=== PATIENT | male | born 1940 | race Caucasian/White ===

== ENCOUNTER → 2018-08-31 12:40 | Outpatient (CLI) | payer MEDICARE, BC, SELFPAY ==
[2018-08-31 14:35] LABS: Alanine Aminotransferase 27 IU/L (21-72); Albumin 4.1 g/dL (3.5-5.0); Alkaline Phosphatase 74 U/L (38-126); Aspartate Aminotransferase 26 IU/L (17-59); BUN Creatinine Ratio 25.8 (6-22); Bilirubin Total 0.4 mg/dL (0.2-1.3); Blood Urea Nitrogen 31 mg/dL (9-20); Calcium 9.2 mg/dL (8.4-10.2); Chloride 92 mmol/L (98-107); Estimated Glomerular Filt Rate 58.7 mL/min (>60); Glucose 94 mg/dL (80-110); HEMOLYSIS < 15 (0-50); Potassium 4.2 mmol/L (3.4-5.1); Sodium 142 mmol/L (137-145)
[2018-08-31 14:36] LABS: Albumin Globulin Ratio 1.8 (1.0-2.8); Globulin 2.3 g/dL (1.7-4.1); Total Protein 6.4 g/dL (6.3-8.2)
[2018-08-31 14:43] LABS: Carbon Dioxide 39 mmol/L (22-32)
[2018-08-31 14:50] LABS: Free T4, Direct Thyroxine 1.08 ng/dL (0.78-2.19)
[2018-08-31 15:04] LABS: Thyroid Stimulating Hormone 1.66 uIU/mL (0.47-4.68)
== END ==
PROVIDERS: PCP Internal Medicine; Visit Provider Internal Medicine
DX: E03.9 Hypothyroidism, unspecified (principal); I10 Essential (primary) hypertension
CPT/HCPCS: 36415; 80053; 84439; 84443

== ENCOUNTER 2018-10-15 12:26 | Emergency (ER) | payer MEDICARE, BC, SELFPAY ==
[2018-10-15] VITALS (7 sets, daily range): BP systolic 126–162; BP diastolic 70–100; PULSE 84–102; RESP 16–19; TEMP 36.4; O2SAT 98–100
--- NOTE | 2018-10-15 12:35 | DI.RAD.S_ITS ---
PROCEDURE: XR CHEST 1V INDICATIONS: short of breath TECHNIQUE: One view of the chest was acquired. COMPARISON: [facility], , CHEST 1 VIEW, 09/20/2017, 12:58. FINDINGS: Surgical changes and devices: None. Lungs and pleura: No pleural effusions or pneumothorax. Mild pulmonary hyperexpansion appears to be present. There is interstitial prominence identified at the lung bases, which is similar to the previous exam. There is mild blunting of the costophrenic angles. Mediastinum: Mediastinal contours appear normal. Heart size is normal. There is aortic atherosclerosis. Bones and chest wall: No suspicious bony lesions. Overlying soft tissues appear unremarkable. IMPRESSION: Chronic interstitial markings at the lung bases are similar to the prior study. No acute cardiopulmonary process is evident. Dictated by: Gurdeep Forbes M.D. on 10/15/2018 at 12:35 Approved by: Gurdeep Forbes M.D. on 10/15/2018 at 12:36
[2018-10-15] MEDS: ALBUTEROL/IPRATROPIUM 3 ML AMPUL INH (12:44)
[2018-10-15 13:00] LABS: Add Manual Diff / Slide Review NO; Basophils Percent Auto 0.8 % (0-2); Eosinophils Percent Auto 3.7 % (2-4); Hematocrit 31.1 % (41-53); Hemoglobin 10.4 g/dL (13.5-17.5); Lymphocytes Percent Auto 10.6 % (25-40); Mean Corpuscular HGB Conc 33.4 % (30-36); Mean Corpuscular Hemoglobin 32.9 PG (26-34); Mean Corpuscular Volume 98.5 fL (80-100); Monocytes Percent Auto 11.4 % (3-14); Neutrophils Absolute Auto 4000 /uL (1500-7000); Neutrophils Percent Auto 73.5 % (50-75); Platelet Count 249 X10^3/uL (150-400); Red Blood Cell Count 3.15 X10^6/uL (4.5-5.9); Red Cell Distribution Width 13.1 % (11.6-14.8); White Blood Cell Count 5.4 X10^3/uL (4.5-11.0)
[2018-10-15 13:06] LABS: Prothrombin Time 10.9 SECONDS (10.1-12.7)
[2018-10-15 13:08] LABS: PTT Partial Thromboplastin Tim 31 SECONDS (26.4-36.2)
[2018-10-15 13:10] LABS: Lactate (Lactic Acid) 1.4 mmol/L (0.7-2.1)
[2018-10-15 13:11] LABS: Alanine Aminotransferase 26 IU/L (21-72); Albumin 4.3 g/dL (3.5-5.0); Albumin Globulin Ratio 1.6 (1.0-2.8); Alkaline Phosphatase 65 U/L (38-126); Aspartate Aminotransferase 27 IU/L (17-59); BUN Creatinine Ratio 16.4 (6-22); Bilirubin Total 0.7 mg/dL (0.2-1.3); Blood Urea Nitrogen 23 mg/dL (9-20); Calcium 9.4 mg/dL (8.4-10.2); Carbon Dioxide 39 mmol/L (22-32); Chloride 90 mmol/L (98-107); Creatine Kinase 40 U/L (55-170); Estimated Glomerular Filt Rate 49.1 mL/min (>60); Globulin 2.7 g/dL (1.7-4.1); Glucose 129 mg/dL (80-110); HEMOLYSIS < 15 (0-50); Magnesium 1.5 mg/dL (1.6-2.3); Potassium 4.5 mmol/L (3.4-5.1); Sodium 137 mmol/L (137-145)
[2018-10-15 13:22] LABS: Troponin I 0.032 ng/mL (0.01-0.034)
[2018-10-15 13:25] LABS: B Type Natriuretic Peptide 141 (<100)
[2018-10-15 13:30] LABS: Procalcitonin 0.06 ng/mL (<0.5)
--- NOTE | 2018-10-15 14:01 | ED_ITS ---
HPI - SOB/Dyspnea General Chief Complaint: Shortness of Breath/Dyspnea Stated Complaint: COPD Time Seen by Provider: 10/15/18 12:32 Source: patient and EMS Mode of arrival: EMS Limitations: no limitations History of Present Illness Patient a 78-year-old male who presents with shortness of breath. He has COPD and is on oxygen at all times. Over the past couple of months he has noticed increasing shortness of breath with exertion despite oxygen. He has noticed that with exertion his O2 level goes to 70% today it got significantly worse. EMS has arrived applied 6 L of O2 with oxygen level quickly improved. We were able to turn it back down to his normal 3 L when he arrived in the ED. He denies any fever or productive cough. He has no chest pain or heart palpitations. MD Complaint: shortness of breath Context: occurred during exertion Severity: moderate Relieving factors: oxygen Known history of: COPD Treatment prior to arrival: oxygen Related Data Home oxygen amount: 3 liters Home Medications Medication Instructions Recorded Confirmed aspirin 81 mg PO BEDTIME #0 09/30/11 10/15/18 calcium carbonate [Calcium 500] 500 mg PO BEDTIME #0 09/30/11 10/15/18 cholecalciferol (vitamin D3) 1,000 unit PO DAILY #0 09/30/11 10/15/18 [Vitamin D3] polyethylene glycol 3350 [Miralax] 17 gm PO QDAY PRN #0 10/20/17 10/15/18 albuterol sulfate HFA 90 2 puff INHALATION Q4-6H PRN 02/03/18 10/15/18 mcg/actuation aerosol inhaler Disabled Parking Permit 1 ea MISCELLANEOUS DIRECTED 10/15/18 10/15/18 bupropion HCl [Wellbutrin XL] 150 mg PO BEDTIME 10/15/18 10/15/18 chlorthalidone 25 mg PO DAILY 10/15/18 10/15/18 lisinopril 20 mg PO BEDTIME 10/15/18 10/15/18 lorazepam [Ativan] 1 mg PO DAILY PRN 10/15/18 10/15/18 multivitamin 1 tab PO DAILY 10/15/18 10/15/18 tiotropium bromide [Spiriva with 1 inh PO DAILY 10/15/18 10/15/18 HandiHaler] tolterodine 2 mg PO DAILY 10/15/18 10/15/18 Previous Rx's Medication Instructions Recorded ketoconazole 2 % topical cream 1 applictn TOP BID #30 gram 02/03/18 clonazepam 1 mg tablet 1 mg PO BID #180 tab 07/27/18 mupirocin 2 % nasal ointment 1 applictn NASAL BID #1 gram 08/16/18 fluticasone-salmeterol [Advair 1 puff INH BID #1 ea 09/06/18 Diskus] levothyroxine [Synthroid] 0.075 mg PO QAM #30 tab 09/06/18 Allergies Allergy/AdvReac Type Severity Reaction Status Date / Time No Known Allergies Allergy Uncoded 10/15/18 12:41 Review of Systems Review of Systems ROS Unobtainable: All systems reviewed & are unremarkable except as noted in HPI and below Constitutional Denies chills, Denies fever(s), Denies lethargy and Denies weakness Cardiovascular Denies chest pain, Denies irregular heart rhythm, Denies lightheadedness, Denies palpitations and Denies orthopnea Respiratory Reports as per HPI Gastrointestinal Gastrointestinal: Denies abdominal pain, Denies change in bowel habits, Denies diarrhea, Denies nausea and Denies vomiting Genitourinary Denies hematuria, Denies flank pain, Denies urinary incontinence and Denies urinary urgency Musculoskeletal Denies back pain, Denies muscle weakness, Denies numbness and Denies tingling Integumentary/Breasts Denies pruritus, Denies erythema, Denies rash and Denies wounds Neurologic Denies numbness, Denies tingling and Denies weakness Endocrine Denies palpitations [facility] Surgical History History of bowel resection (Inactive) History of cataract removal with insertion of prosthetic lens (Inactive ~2008) History of cataract removal with insertion of prosthetic lens (Inactive ~2011) History of hip replacement (Inactive) History of prostatectomy (Inactive ~2003) Family History Mother Diabetes mellitus Father No problems noted. Grandfather No problems noted. Grandmother No problems noted. Grandfather No problems noted. Grandmother No problems noted. Sister No problems noted. Social History Smoking Status: Former smoker Exam Initial Vital Signs Initial Vital Signs: Vital Signs Temperature 97.5 F L 10/15/18 12:34 Pulse Rate 102 H 10/15/18 12:34 Respiratory Rate 18 10/15/18 12:34 Blood Pressure 159/89 H 10/15/18 12:34 Pulse Oximetry 100 10/15/18 12:34 GENERAL: Chronically ill elderly male on oxygen no respiratory distress HEENT: Head atraumatic,EOMI, pupils reactive, face symmetric CARDIOVASCULAR: Regular rate and rhythm without murmurs, rubs or gallops. RESPIRATORY: Speak full sentences no respiratory distress no wheezes rales or rhonchi ABDOMEN: Soft, nontender. Normoactive bowel sounds all 4 quadrants. No guarding or rebound. EXTREMITIES: Normal range of motion, no clubbing or edema. Neurovascularly intact NEUROLOGICAL: Alert and oriented x4.Normal gait and speech. Cranial nerves II through XII grossly intact. SKIN: Warm, dry, no laceration, no petechiae, no rashes or lesions. Course Orders Ordered: Discontinued Medications Albuterol/Ipratropium (Duoneb) 3 ml INH NOW ONE Stop: 10/15/18 12:35 Last Admin: 10/15/18 12:44 Dose: 3 ml Vital Signs - 8 hr 10/15/18 12:34 10/15/18 12:48 10/15/18 13:26 Temperature 97.5 F L Pulse Rate 102 H 95 H 91 H Respiratory Rate 18 18 18 Blood Pressure 159/89 H Blood Pressure [Right Arm] 139/70 Pulse Oximetry 100 100 98 10/15/18 14:32 10/15/18 15:49 10/15/18 16:00 Temperature Pulse Rate 87 84 92 H Respiratory Rate 16 17 18 Blood Pressure Blood Pressure [Right Arm] 145/76 H 126/70 152/100 H Pulse Oximetry 98 99 99 10/15/18 16:30 Temperature Pulse Rate 92 H Respiratory Rate 19 Blood Pressure Blood Pressure [Right Arm] 162/89 H Pulse Oximetry 100 MDM - SOB/Dyspnea Lab Data Attestation: I reviewed the patient's lab results. Result diagrams: 10/15/18 12:55 10/15/18 12:55 Lab Results 10/15/18 10/15/18 10/15/18 Range/Units 12:55 12:55 12:55 WBC 5.4 (4.5-11.0) X10^3/uL RBC 3.15 L (4.5-5.9) X10^6/uL Hgb 10.4 L (13.5-17.5) g/dL Hct 31.1 L (41-53) % MCV 98.5 (80-100) fL MCH 32.9 (26-34) PG MCHC 33.4 (30-36) % RDW 13.1 (11.6-14.8) % Plt Count 249 (150-400) X10^3/uL Neut % (Auto) 73.5 (50-75) % Lymph % (Auto) 10.6 L (25-40) % Jerome % (Auto) 11.4 (3-14) % Eos % (Auto) 3.7 (2-4) % Baso % (Auto) 0.8 (0-2) % Neut # (Auto) 4000 (2290-8881) /uL PT 10.9 (10.1-12.7) SECONDS INR 1.0 (0.9-1.3) APTT 31 (26.4-36.2) SECONDS Sodium 137 (137-145) mmol/L Potassium 4.5 (3.4-5.1) mmol/L Chloride 90 L (98-107) mmol/L Carbon Dioxide 39 H (22-32) mmol/L BUN 23 H (9-20) mg/dL Creatinine 1.40 H (0.66-1.25) mg/dL Estimated GFR 49.1 L (>60) mL/min BUN/Creatinine Ratio 16.4 (6-22) Glucose 129 H (80-110) mg/dL Lactate (0.7-2.1) mmol/L Calcium 9.4 (8.4-10.2) mg/dL Magnesium 1.5 L (1.6-2.3) mg/dL Total Bilirubin 0.7 (0.2-1.3) mg/dL AST 27 (17-59) IU/L ALT 26 (21-72) IU/L Alkaline Phosphatase 65 (38-126) U/L Total Creatine Kinase 40 L (55-170) U/L CK-MB (CK-2) TNP CK-MB (CK-2) Rel Index TNP Troponin I 0.032 (0.01-0.034) ng/mL B-Natriuretic Peptide 141 H (<100) Total Protein 7.0 (6.3-8.2) g/dL Albumin 4.3 (3.5-5.0) g/dL Globulin 2.7 (1.7-4.1) g/dL Albumin/Globulin Ratio 1.6 (1.0-2.8) Procalcitonin (<0.5) ng/mL 10/15/18 10/15/18 Range/Units 12:55 12:55 WBC (4.5-11.0) X10^3/uL RBC (4.5-5.9) X10^6/uL Hgb (13.5-17.5) g/dL Hct (41-53) % MCV (80-100) fL MCH (26-34) PG MCHC (30-36) % RDW (11.6-14.8) % Plt Count (150-400) X10^3/uL Neut % (Auto) (50-75) % Lymph % (Auto) (25-40) % Jerome % (Auto) (3-14) % Eos % (Auto) (2-4) % Baso % (Auto) (0-2) % Neut # (Auto) (3185-6010) /uL PT (10.1-12.7) SECONDS INR (0.9-1.3) APTT (26.4-36.2) SECONDS Sodium (137-145) mmol/L Potassium (3.4-5.1) mmol/L Chloride (98-107) mmol/L Carbon Dioxide (22-32) mmol/L BUN (9-20) mg/dL Creatinine (0.66-1.25) mg/dL Estimated GFR (>60) mL/min BUN/Creatinine Ratio (6-22) Glucose (80-110) mg/dL Lactate 1.4 (0.7-2.1) mmol/L Calcium (8.4-10.2) mg/dL Magnesium (1.6-2.3) mg/dL Total Bilirubin (0.2-1.3) mg/dL AST (17-59) IU/L ALT (21-72) IU/L Alkaline Phosphatase (38-126) U/L Total Creatine Kinase (55-170) U/L CK-MB (CK-2) CK-MB (CK-2) Rel Index Troponin I (0.01-0.034) ng/mL B-Natriuretic Peptide (<100) Total Protein (6.3-8.2) g/dL Albumin (3.5-5.0) g/dL Globulin (1.7-4.1) g/dL Albumin/Globulin Ratio (1.0-2.8) Procalcitonin 0.06 (<0.5) ng/mL Imaging Data Chest x-ray: Radiologist's impression: PROCEDURE: XR CHEST 1V INDICATIONS: short of breath TECHNIQUE: One view of the chest was acquired. COMPARISON: [facility], CHEST 1 VIEW, 09/20/2017, 12:58. FINDINGS: Surgical changes and devices: None. Lungs and pleura: No pleural effusions or pneumothorax. Mild pulmonary hyperexpansion appears to be present. There is interstitial prominence identified at the lung bases, which is similar to the previous exam. There is mild blunting of the costophrenic angles. Mediastinum: Mediastinal contours appear normal. Heart size is normal. There is aortic atherosclerosis. Bones and chest wall: No suspicious bony lesions. Overlying soft tissues appear unremarkable. IMPRESSION: Chronic interstitial markings at the lung bases are similar to the prior study. No acute cardiopulmonary process is evident. Dictated by: Gurdeep Forbes M.D. on 10/15/2018 at 12:35 Approved by: Gurdeep Forbes M.D. on 10/15/2018 at 12:36 CT-PE: Radiologist's impression: PROCEDURE: CT ANGIO CHEST PE PROTOCOL INDICATIONS: Short of breath,hypoxia TECHNIQUE: After the administration of intravenous contrast, 2 mm thick sections acquired from the pulmonary apices to the posterior costophrenic angles. 3-dimensional maximum intensity projection (MIP) coronal and sagittal reformats were then acquired through the thorax. For radiation dose reduction, the following was used: automated exposure control, adjustment of mA and/or kV according to patient size. COMPARISON: None. FINDINGS: Image quality: Excellent. Pulmonary arteries: Pulmonary arteries are normal in size, and demonstrate no intraluminal filling defects to suggest central pulmonary embolism. Lungs and pleura: Moderate centrilobular emphysema is seen. Scarring/ atelectasis in the anterior aspect of bilateral lower lung chavez are seen. There is a 3 mm linear nodular density in posterior aspect of left lower lobe series 7 image 37. 4 mm nodular density in the anterior aspect of the right middle lobe is also seen series 7 image 41. Bibasilar scarring/atelectasis is noted. No pleural effusions or pneumothorax. Central and peripheral airways are patent. Mediastinum: Heart size is normal, without pericardial effusion. No mediastinal or hilar adenopathy. Thoracic aorta is normal in caliber and enhancement. Esophagus is normal in caliber, there is a small hiatal hernia. Bones and chest wall: No suspicious bony lesions. Ribs and thoracic spine appear intact throughout. Thyroid gland is within normal limits. No axillary or supraclavicular adenopathy. Abdomen: Visualized upper abdominal solid organs appear normal in the early arterial phase of enhancement. IMPRESSION: 1. No evidence of pulmonary emboli. No thoracic aortic aneurysm or gross dissection. Cardiomegaly, no pericardial effusion. 2. No mediastinal or hilar adenopathy. 3. Scarring/atelectasis in bilateral lower lung chavez. 3 and 4 mm nodular densities are seen in left lower lobe and right middle lobe as described above. Centrilobular emphysema. A followup CT in 12 months is recommended for evaluation of stability. Dictated by: Edmundo Boyd M.D. on 10/15/2018 at 15:50 ECG Data Attestation: I personally reviewed and interpreted this ECG as follows: Prior ECG tracings: available for review Interpretation: Sinus rhythm rate [address] changes right bundle-branch block similar to previous EKG here interval 180 QTC 462 MDM Narrative Medical decision making narrative: Patient gets short of breath with minimal exertion. CT for PE is negative. This is likely progression of his disease. He has oxygen at home. At rest he has an O2 level of 98-100% on 3 L on with no work of breathing. Recommend that with exertion he turns up his oxygen. Patient feels ready and able to go home. Discharge Plan Departure Patient Disposition: Home Clinical Impression: Chronic obstructive pulmonary disease Discharge Date/Time: 10/15/18 17:26 Interventions: ED Discharge Assessment Last Done: 10/15/18 17:25 Instructions: Chronic Obstructive Pulmonary Disease Activity Restrictions/Additional Instructions: *You have been diagnosed with COPD exacerbation *What to do: Continue oxygen may need to increase oxygen while *Continue to take medications as directed *Follow up with your primary care provider in 2-3 days *Return to ER if you should have chest pain, heart palpitations, fever, cough or any new, worsening or concerning symptoms Prescriptions: No Action calcium carbonate [Calcium 500] 500 mg calcium (1,250 mg) Tablet 500 mg PO BEDTIME Qty: 0 RF: 0 aspirin 81 MG tablet,delayed release (DR/EC) 81 mg PO BEDTIME Qty: 0 RF: 0 cholecalciferol (vitamin D3) [Vitamin D3] 1,000 unit Capsule 1,000 unit PO DAILY Qty: 0 RF: 0 polyethylene glycol 3350 [Miralax] 17 GM powder in packet 17 gm PO QDAY PRN (Reason: Constipation) Qty: 0 RF: 0 clonazepam 1 mg tablet 1 mg PO BID Qty: 180 RF: 3 mupirocin calcium 2 % ointment 1 applictn NASAL BID Qty: 1 RF: 3 fluticasone-salmeterol [Advair Diskus] 500-50 mcg/dose blister with device 1 puff INH BID Qty: 1 RF: 3 levothyroxine [Synthroid] 75 mcg tablet 0.075 mg PO QAM Qty: 30 RF: 3 albuterol sulfate 90 mcg/actuation HFA aerosol inhaler 2 puff INHALATION Q4-6H PRN (Reason: shortness of breath or wheezing) RF: 0 ketoconazole 2 % cream 1 applictn TOP BID Qty: 30 RF: 0 tolterodine 2 mg capsule,extended release 24hr 2 mg PO DAILY RF: 0 lisinopril 20 mg tablet 20 mg PO BEDTIME RF: 0 lorazepam [Ativan] 1 mg tablet 1 mg PO DAILY PRN (Reason: Anxiety) RF: 0 tiotropium bromide [Spiriva with HandiHaler] 18 MCG capsule, w/inhalation device 1 inh PO DAILY RF: 0 multivitamin Tablet 1 tab PO DAILY RF: 0 chlorthalidone 25 mg tablet 25 mg PO DAILY RF: 0 bupropion HCl [Wellbutrin XL] 150 mg tablet extended release 24 hr 150 mg PO BEDTIME RF: 0 Disabled Parking Permit 1 ea miscellaneous DIRECTED RF: 0 Referrals: Leonel Samayoa MD [Primary Care Provider] -
--- NOTE | 2018-10-15 14:45 | DI.CT.S_ITS ---
PROCEDURE: CT ANGIO CHEST PE PROTOCOL INDICATIONS: Short of breath,hypoxia TECHNIQUE: After the administration of intravenous contrast, 2 mm thick sections acquired from the pulmonary apices to the posterior costophrenic angles. 3-dimensional maximum intensity projection (MIP) coronal and sagittal reformats were then acquired through the thorax. For radiation dose reduction, the following was used: automated exposure control, adjustment of mA and/or kV according to patient size. COMPARISON: None. FINDINGS: Image quality: Excellent. Pulmonary arteries: Pulmonary arteries are normal in size, and demonstrate no intraluminal filling defects to suggest central pulmonary embolism. Lungs and pleura: Moderate centrilobular emphysema is seen. Scarring/atelectasis in the anterior aspect of bilateral lower lung chavez are seen. There is a 3 mm linear nodular density in posterior aspect of left lower lobe series 7 image 37. 4 mm nodular density in the anterior aspect of the right middle lobe is also seen series 7 image 41. Bibasilar scarring/atelectasis is noted. No pleural effusions or pneumothorax. Central and peripheral airways are patent. Mediastinum: Heart size is normal, without pericardial effusion. No mediastinal or hilar adenopathy. Thoracic aorta is normal in caliber and enhancement. Esophagus is normal in caliber, there is a small hiatal hernia. Bones and chest wall: No suspicious bony lesions. Ribs and thoracic spine appear intact throughout. Thyroid gland is within normal limits. No axillary or supraclavicular adenopathy. Abdomen: Visualized upper abdominal solid organs appear normal in the early arterial phase of enhancement. IMPRESSION: 1. No evidence of pulmonary emboli. No thoracic aortic aneurysm or gross dissection. Cardiomegaly, no pericardial effusion. 2. No mediastinal or hilar adenopathy. 3. Scarring/atelectasis in bilateral lower lung chavez. 3 and 4 mm nodular densities are seen in left lower lobe and right middle lobe as described above. Centrilobular emphysema. A followup CT in 12 months is recommended for evaluation of stability. Dictated by: Edmundo Boyd M.D. on 10/15/2018 at 15:50 Approved by: Edmundo Boyd M.D. on 10/15/2018 at 15:55
== END 2018-10-15 17:26 | disposition home or self-care (01) ==
PROVIDERS: Emergency Provider Emergency Medicine; Family Provider Internal Medicine; PCP Internal Medicine
DX: J44.9 Chronic obstructive pulmonary disease, unspecified (principal)
CPT/HCPCS: 36591; 71045; 71275; 80053; 82550; 83605; 83735; 83880; 84145; 84484; 85025; 85610; 85730; 93005; 93010; 94640; 99283; 99285

== ENCOUNTER → 2018-12-31 10:37 | Outpatient (CLI) | payer MEDICARE, BC, SELFPAY ==
[2018-12-31 12:16] LABS: BUN Creatinine Ratio 28.6 (6-22); Blood Urea Nitrogen 63 mg/dL (9-20); Carbon Dioxide 38 mmol/L (22-32); Chloride 98 mmol/L (98-107); Estimated Glomerular Filt Rate 29.2 mL/min (>60); Glucose 118 mg/dL (80-110); HEMOLYSIS < 15 (0-50); Potassium 4.8 mmol/L (3.4-5.1); Sodium 141 mmol/L (137-145)
== END ==
PROVIDERS: PCP Internal Medicine; Visit Provider Internal Medicine
DX: I42.9 Cardiomyopathy, unspecified (principal); I48.91 Unspecified atrial fibrillation; N18.2 Chronic kidney disease, stage 2 (mild)
CPT/HCPCS: 36415; 80048

== ENCOUNTER 2019-01-04 10:43 | Inpatient (IN) | payer MEDICARE, BC, SELFPAY ==
[2019-01-04] VITALS (28 sets, daily range): BP systolic 109–143; BP diastolic 49–95; PULSE 66–89; RESP 13–20; TEMP 36.7–37.7; O2SAT 95–100; BMI 18.9
--- NOTE | 2019-01-04 10:53 | DI.RAD.S_ITS ---
PROCEDURE: XR ACUTE ABDOMEN SERIES INDICATIONS: diarrhea, altered mental status TECHNIQUE: One view chest and two views of the abdomen were acquired. COMPARISON: None. FINDINGS: Surgical changes and devices: Multiple surgical clips are seen within the left upper quadrant and within the pelvis. Postoperative changes related to total left hip arthroplasty are also noted. Chest: The lungs are well aerated no focal consolidation, effusion, or pneumothorax. There may be minimal atelectasis versus scarring within the lateral margins of the bilateral lung bases. The heart is normal in size. Mediastinal silhouette is also within normal limits. There is aortic atherosclerosis. Degenerative changes of the spine are not well characterized. Abdomen: The bowel gas pattern is nonspecific. However, air and stool are seen throughout the colon. Moderate amount of residual stool is identified within the lower colon (pelvic region). No air-filled distended small bowel loops are identified demonstrating air-fluid levels. No definitive evidence of organomegaly is identified. There is no pneumoperitoneum. Degenerative changes of the lumbar spine, sacroiliac joints, and right hip are noted. IMPRESSION: 1. No bowel obstruction. 2. Moderate residual stool within the distal colon may represent constipation. 3. Minimal scarring/atelectasis within the lung bases. No acute cardiopulmonary process is evident. Dictated by: Gurdeep Forbes M.D. on 01/04/2019 at 10:34 Approved by: Gurdeep Forbes M.D. on 01/04/2019 at 10:38
--- NOTE | 2019-01-04 10:57 | ED.FEVER ---
HPI - Fever <Leonel Samayoa MD - Last Filed: 01/04/19 17:26> General Chief Complaint: Fever Stated Complaint: Fever / Confused Time Seen by Provider: 01/04/19 10:53 Related Data Home Medications Medication Instructions Recorded Confirmed polyethylene glycol 3350 [Miralax] 17 gm PO QDAY PRN #0 10/20/17 01/04/19 albuterol sulfate HFA 90 2 puff INHALATION Q4-6H PRN 02/03/18 01/04/19 mcg/actuation aerosol inhaler Disabled Parking Permit 1 ea MISCELLANEOUS DIRECTED 10/15/18 01/04/19 bupropion HCl [Wellbutrin XL] 150 mg PO BEDTIME 10/15/18 01/04/19 lorazepam [Ativan] 1 mg PO DAILY PRN 10/15/18 01/04/19 multivitamin 1 tab PO DAILY 10/15/18 01/04/19 apixaban 2.5 mg tablet 2.5 mg PO BID 12/31/18 01/04/19 carvedilol 6.25 mg tablet 6.25 mg PO BID 12/31/18 01/04/19 enalapril maleate 2.5 mg tablet 7.5 mg PO BID tab 12/31/18 01/04/19 Previous Rx's Medication Instructions Recorded fluticasone propion-salmeterol 1 puff INH BID #1 ea 09/06/18 [Advair Diskus] levothyroxine [Synthroid] 0.075 mg PO QAM #30 tab 09/06/18 tolterodine ER 2 mg 2 mg PO DAILY #90 cap 10/21/18 capsule,extended release 24 hr tiotropium bromide 18 mcg capsule 1 cap INHALATION DAILY #90 caplet 10/25/18 with inhalation device triamcinolone acetonide 0.1 % 1 applictn TOP DAILY #80 gram 10/25/18 topical cream chlorthalidone 25 mg tablet 25 mg PO DAILY #90 tab 11/02/18 calcium carbonate 500 mg calcium 500 mg PO QID #30 tab 12/31/18 (1,250 mg) tablet clonazepam 1 mg tablet 0.5 mg PO BID #180 tab 12/31/18 Allergies Allergy/AdvReac Type Severity Reaction Status Date / Time No Known Drug Allergies Allergy Verified 01/04/19 10:50 <DO David Hill Last Filed: 01/04/19 20:10> General Source: patient, EMS and other (caregiver ([facility]_) Mode of arrival: EMS Limitations: altered mental status (memory issues, chronic) History of Present Illness HPI Narrative: This is a 78-year-old male was transported via EMS. EMS stated that he had a fever with them but here at the hospital he does not have 1. Patient was at home with his caregiver. He was found on the floor with diarrhea. He had taken off his oxygen to try to get to the bathroom. Caregiver states that they cleaned him up, put him back into bed. He had 1 or 2 other episodes of diarrhea. They stated that he has memory issues he is worse than he typically is but his memory sort of waxes and wanes. At this time he is sorted still quite confused. Patient has not had any other complaints recently. He went out to dinner with his caregiver yesterday had a large crab dinner was not having any other issues in the evening. He arrives today with no other complaints currently. Patient himself can tell me his name he knows he is at a hospital but does not answer which hospital or what town. He seems to be searching for the answer. He is not able to give me his past medical history. When I ask if he has any headaches, chest pain, shortness of breath, she feels nauseated or has had any recent vomiting he denies. He is denying any issues with urination. He does not have any sensation that he is going to have diarrhea at this time. <Karolina Johnson DO - Last Filed: 01/04/19 20:10> Review of Systems ROS Unobtainable: All systems reviewed & are unremarkable except as noted in HPI and below (Patient does have memory issue) Constitutional Denies chills, Denies fever(s) (Fever only with EMS, not per caregiver), Denies headache(s), Denies lethargy and Denies weakness ENT Ears, Nose, Mouth, and Throat: Denies headache(s) and Denies nasal congestion Cardiovascular Denies chest pain, Denies chest pain at rest, Denies diaphoresis, Denies syncope, Denies edema, Denies irregular heart rhythm, Denies leg edema, Denies lightheadedness, Denies palpitations, Denies dyspnea, Denies dyspnea on exertion and Denies orthopnea Respiratory Denies change in phlegm color, Denies chest congestion, Denies cough, Denies dyspnea, Denies dyspnea on exertion, Denies stridor and Denies wheezing Gastrointestinal Gastrointestinal: Denies abdominal pain, Denies change in bowel habits, Denies diarrhea, Denies nausea and Denies vomiting Genitourinary Denies hematuria, Denies flank pain, Denies urinary hesitancy and Denies urinary urgency Musculoskeletal Denies back pain, Denies numbness and Denies tingling Integumentary/Breasts Denies rash and Denies sores Neurologic Reports as per HPI, Reports confusion, Denies syncope, Denies headache(s), Reports memory loss (chronic), Denies numbness, Denies tingling and Denies weakness Psychiatric Reports confusion and Reports memory loss (chronic) Endocrine Denies palpitations Allergic/Immunologic Denies wheezing PFSH <Leonel Samayoa MD - Last Filed: 01/04/19 17:26> Medical History Chronic renal failure, stage 2 (mild) (Chronic) Cardiomyopathy (Chronic) Chronic obstructive pulmonary disease (Chronic 04/17/11) Atrial fibrillation (Chronic 04/17/11) Hypertension (Chronic 04/17/11) Acquired hypothyroidism (Chronic 12/20/12) Malignant neoplasm of prostate (Chronic 07/28/17) Anxiety (Chronic 11/24/13) Osteoarthritis (Chronic 04/17/11) Insomnia (Chronic 09/26/14) History of adenomatous polyp of colon (Chronic) Chicken pox (Resolved ~194) Closed left hip fracture (Resolved) Fracture (Resolved) Elevated PSA (Inactive ~2003) Surgical History History of bowel resection (Inactive) History of cataract removal with insertion of prosthetic lens (Inactive ~2008) History of cataract removal with insertion of prosthetic lens (Inactive ~2011) History of hip replacement (Inactive) History of prostatectomy (Inactive ~2003) Family History Mother Diabetes mellitus Father No problems noted. Grandfather No problems noted. Grandmother No problems noted. Grandfather No problems noted. Grandmother No problems noted. Sister No problems noted. Social History household members: caregiver Smoking Status: Former smoker Family History Mother Diabetes mellitus Father No problems noted. Grandfather No problems noted. Grandmother No problems noted. Grandfather No problems noted. Grandmother No problems noted. Sister No problems noted. Social History household members: caregiver Smoking Status: Former smoker Exam <Loenel Samayoa MD - Last Filed: 01/04/19 17:26> Initial Vital Signs Initial Vital Signs: Vital Signs Temperature 98.1 F 01/04/19 10:50 Pulse Rate 79 01/04/19 10:50 Respiratory Rate 16 01/04/19 10:50 Blood Pressure 132/51 L 01/04/19 10:50 Pulse Oximetry 95 01/04/19 10:50 <Karolina Johnson DO - Last Filed: 01/04/19 20:10> Narrative Exam Narrative: GEN: well nourished, well appearing elderly male, alert and oriented x time is 1, patient appears to be no acute distress. patient is calm and cooperative. HEENT: Atraumatic, pupils are equal round reactive to light, extraocular movements are intact, nares are clear, TMs are clear with no fluid, there is no conjunctival pallor. Throat is clear without any exudates, erythema, tonsillar enlargement or uvular deviation, no facial droop, no dysarthria HEART: Regular rate and rhythm without murmur, clicks, rubs. LUNGS:Lungs clear to auscultation, no wheezes, rales, crackles, chest moves symmetrically, no tachypnea or accessory muscle use. ABD:bowel sounds normal, soft, non-tender, no guarding, rebound, rigidity, no masses noted, no hepatosplenomegaly, MARVA shows no mass, patient has some brown stool with negative stool occult. There is no bright red blood or black tarry stool. :No CVA tenderness MSCL: Non-tender, no muscle atrophy, muscles strength 5/5 upper and lower extremities, full range of motion, gait not tested NEURO:CN 2-12 intact, sensation normal Initial Vital Signs Initial Vital Signs: Vital Signs Temperature 98.1 F 01/04/19 10:50 Pulse Rate 79 01/04/19 10:50 Respiratory Rate 16 01/04/19 10:50 Blood Pressure 132/51 L 01/04/19 10:50 Pulse Oximetry 95 01/04/19 10:50 <Karolina Johnson DO - Last Filed: 01/04/19 20:10> GCS Stacey coma scale eye opening: Spontaneous Stacey coma scale verbal response: Confused Phelps coma scale motor response: Obey commands Stacey coma scale total score: 14 Course <Leonel Samayoa MD - Last Filed: 01/04/19 17:26> Orders Ordered: ED Orders 01/04/19 10:53 XR acute abdomen series Stat EKG-12 Lead Stat 01/04/19 10:54 Lactate (Lactic Acid) Stat 01/04/19 11:11 CT head/brain wo con Stat 01/04/19 11:45 Blood Culture Stat 01/04/19 13:12 Arterial Blood Gas Stat 01/04/19 13:15 Influenza A and B by PCR Rapid Stat 01/04/19 14:25 MRSA PCR Stat Respiratory Panel (Film Array) Stat 01/04/19 14:29 BiPAP Ventilatory Support RT PROTOCOL 01/04/19 16:10 Consult to Dietitian, Adult Routine 01/04/19 19:00 Troponin I Q8H 01/05/19 05:00 Basic Metabolic Panel Routine Complete Blood Count AUTO DIFF Routine Bupropion HCl (Wellbutrin Xl) 150 mg PO BEDTIME [facility]ORE[facility] Carvedilol (Coreg) 6.25 mg PO BID [facility] Clonazepam (Klonopin) 0.5 mg PO BID [facility] Enalapril Maleate (Vasotec) 7.5 mg PO BID [facility] Levothyroxine Sodium (Synthroid) 75 mcg PO 0600 DOREEN Lorazepam (Ativan) 0.5 mg PO Q4HR PRN PRN Reason: Anxiety Morphine Sulfate (Morphine) 2 mg IV Q5MIN PRN PRN Reason: Chest Pain Nitroglycerin (Nitrostat) 0.4 mg SL [id number] PRN PRN Reason: Chest Pain Pantoprazole Sodium (Protonix) 40 mg IV DAILY [facility] Fluticasone/Salmeterol (Advair 500/50 Diskus) 1 puff INH BID [facility] Tiotropium [place] (Spiriva) 18 mcg INH DAILY [facility] Tolterodine Tartrate (Detrol La) 2 mg PO DAILY DOREEN Discontinued Medications Aspirin (Aspirin Chew) 324 mg PO NOW ONE Stop: 01/04/19 12:16 Last Admin: 01/04/19 13:02 Dose: 324 mg Furosemide (Lasix) 40 mg IV NOW ONE Stop: 01/04/19 12:45 Sodium Chloride (Normal Saline 0.9%) 1,000 mls @ 1,000 mls/hr IV BOLUS ONE Stop: 01/04/19 11:52 Last Admin: 01/04/19 11:37 Dose: Not Given Pantoprazole Sodium 80 mg/ (Sodium Chloride) 100 mls @ 200 mls/hr IV NOW ONE Stop: 01/04/19 12:18 Last Infusion: 01/04/19 13:35 Dose: 0 mls/hr Admin: 01/04/19 13:02 Dose: 200 mls/hr Vital Signs - 8 hr 01/04/19 12:00 01/04/19 12:11 01/04/19 12:30 Temperature 98.1 F Pulse Rate 74 74 73 Respiratory Rate 16 16 19 Blood Pressure 132/51 L Blood Pressure [Right Arm] 135/58 L 129/64 Pulse Oximetry 95 95 100 01/04/19 13:00 01/04/19 13:30 01/04/19 14:00 Temperature Pulse Rate 89 70 69 Respiratory Rate 20 15 14 Blood Pressure Blood Pressure [Right Arm] 121/54 L 130/49 L 125/58 L Pulse Oximetry 98 100 96 01/04/19 14:29 01/04/19 14:57 01/04/19 15:07 Temperature 99.2 F 99.2 F Pulse Rate 76 76 Respiratory Rate 20 20 Blood Pressure 120/58 L 120/58 L 120/58 L Blood Pressure [Right Arm] Pulse Oximetry 97 01/04/19 15:17 01/04/19 15:21 01/04/19 18:11 Temperature 99.8 F H 99.8 F H 99.7 F H Pulse Rate 74 74 81 Respiratory Rate 18 18 19 Blood Pressure 109/52 L 109/52 L 129/80 Blood Pressure [Right Arm] Pulse Oximetry 01/04/19 18:13 Temperature 99.7 F H Pulse Rate 81 Respiratory Rate 19 Blood Pressure 129/80 Blood Pressure [Right Arm] Pulse Oximetry <DO David Hill Last Filed: 01/04/19 20:10> Orders Ordered: ED Orders 01/04/19 10:53 XR acute abdomen series Stat EKG-12 Lead Stat 01/04/19 10:54 Lactate (Lactic Acid) Stat 01/04/19 11:11 CT head/brain wo con Stat 01/04/19 11:45 Blood Culture Stat 01/04/19 13:12 Arterial Blood Gas Stat 01/04/19 13:15 Influenza A and B by PCR Rapid Stat 01/04/19 14:25 MRSA PCR Stat Respiratory Panel (Film Array) Stat 01/04/19 14:29 BiPAP Ventilatory Support RT PROTOCOL 01/04/19 16:10 Consult to Dietitian, Adult Routine 01/04/19 19:00 Troponin I Q8H 01/05/19 05:00 Basic Metabolic Panel Routine Complete Blood Count AUTO DIFF Routine Bupropion HCl (Wellbutrin Xl) 150 mg PO BEDTIME [facility] Carvedilol (Coreg) 6.25 mg PO BID [facility] Clonazepam (Klonopin) 0.5 mg PO BID [facility] Enalapril Maleate (Vasotec) 7.5 mg PO BID [facility] Levothyroxine Sodium (Synthroid) 75 mcg PO 0600 [facility] Lorazepam (Ativan) 0.5 mg PO Q4HR PRN PRN Reason: Anxiety Morphine Sulfate (Morphine) 2 mg IV Q5MIN PRN PRN Reason: Chest Pain Nitroglycerin (Nitrostat) 0.4 mg SL [id number] PRN PRN Reason: Chest Pain Pantoprazole Sodium (Protonix) 40 mg IV DAILY [facility] Fluticasone/Salmeterol (Advair 500/50 Diskus) 1 puff INH BID [facility] Tiotropium [place] (Spiriva) 18 mcg INH DAILY [facility] Tolterodine Tartrate (Detrol La) 2 mg PO DAILY [facility] Discontinued Medications Aspirin (Aspirin Chew) 324 mg PO NOW ONE Stop: 01/04/19 12:16 Last Admin: 01/04/19 13:02 Dose: 324 mg Furosemide (Lasix) 40 mg IV NOW ONE Stop: 01/04/19 12:45 Sodium Chloride (Normal Saline 0.9%) 1,000 mls @ 1,000 mls/hr IV BOLUS ONE Stop: 01/04/19 11:52 Last Admin: 01/04/19 11:37 Dose: Not Given Pantoprazole Sodium 80 mg/ (Sodium Chloride) 100 mls @ 200 mls/hr IV NOW ONE Stop: 01/04/19 12:18 Last Infusion: 01/04/19 13:35 Dose: 0 mls/hr Admin: 01/04/19 13:02 Dose: 200 mls/hr Vital Signs - 8 hr 01/04/19 12:00 01/04/19 12:11 01/04/19 12:30 Temperature 98.1 F Pulse Rate 74 74 73 Respiratory Rate 16 16 19 Blood Pressure 132/51 L Blood Pressure [Right Arm] 135/58 L 129/64 Pulse Oximetry 95 95 100 01/04/19 13:00 01/04/19 13:30 01/04/19 14:00 Temperature Pulse Rate 89 70 69 Respiratory Rate 20 15 14 Blood Pressure Blood Pressure [Right Arm] 121/54 L 130/49 L 125/58 L Pulse Oximetry 98 100 96 01/04/19 14:29 01/04/19 14:57 01/04/19 15:07 Temperature 99.2 F 99.2 F Pulse Rate 76 76 Respiratory Rate 20 20 Blood Pressure 120/58 L 120/58 L 120/58 L Blood Pressure [Right Arm] Pulse Oximetry 97 01/04/19 15:17 01/04/19 15:21 01/04/19 18:11 Temperature 99.8 F H 99.8 F H 99.7 F H Pulse Rate 74 74 81 Respiratory Rate 18 18 19 Blood Pressure 109/52 L 109/52 L 129/80 Blood Pressure [Right Arm] Pulse Oximetry 01/04/19 18:13 Temperature 99.7 F H Pulse Rate 81 Respiratory Rate 19 Blood Pressure 129/80 Blood Pressure [Right Arm] Pulse Oximetry MDM - Fever <Leonel Samayoa MD - Last Filed: 01/04/19 17:26> Lab Data Result diagrams: 01/04/19 10:50 01/04/19 10:50 Lab Results 01/04/19 01/04/19 01/04/19 Range/Units 10:50 10:50 10:50 WBC 5.6 (4.5-11.0) X10^3/uL RBC 2.57 L (4.5-5.9) X10^6/uL Hgb 8.5 L (13.5-17.5) g/dL Hct 26.0 L (41-53) % MCV 101.0 H (80-100) fL MCH 32.9 (26-34) PG MCHC 32.6 (30-36) % RDW 13.4 (11.6-14.8) % Plt Count 178 (150-400) X10^3/uL Neut % (Auto) 79.0 H (50-75) % Lymph % (Auto) 9.9 L (25-40) % [place] % (Auto) 8.4 (3-14) % Eos % (Auto) 1.8 L (2-4) % Baso % (Auto) 0.9 (0-2) % Neut # (Auto) 4400 (5527-8073) /uL Lymph # (Auto) 600 L (0554-2539) /uL [place] # (Auto) 500 (0-900) /uL Eos # (Auto) 100 (0-450) /uL Baso # (Auto) 0 (0-100) /uL PT 12.3 (10.1-12.7) SECONDS INR 1.1 (0.9-1.3) APTT 30 (26.4-36.2) SECONDS ABG pH (7.35-7.45) ABG pCO2 (35-45) mmHg ABG pO2 (80-100) mmHg ABG HCO3 (22-26) mmol/L ABG Total CO2 (21-31) mmol/L ABG O2 Saturation (95-100) % ABG Base Excess (-2-2) mmol/L FiO2 Sodium 144 (137-145) mmol/L Potassium 4.7 (3.4-5.1) mmol/L Chloride 96 L (98-107) mmol/L Carbon Dioxide 42 H* (22-32) mmol/L BUN 60 H (9-20) mg/dL Creatinine 1.50 H (0.66-1.25) mg/dL Estimated GFR 45.4 L (>60) mL/min BUN/Creatinine Ratio 40.0 H (6-22) Glucose 109 (80-110) mg/dL Lactate (0.7-2.1) mmol/L Calcium 10.0 (8.4-10.2) mg/dL Total Bilirubin 0.5 (0.2-1.3) mg/dL AST 24 (17-59) IU/L ALT 28 (21-72) IU/L Alkaline Phosphatase 52 (38-126) U/L Troponin I 0.206 H* (0.01-0.034) ng/mL Total Protein 6.0 L (6.3-8.2) g/dL Albumin 3.5 (3.5-5.0) g/dL Globulin 2.5 (1.7-4.1) g/dL Albumin/Globulin Ratio 1.4 (1.0-2.8) Lipase (23-300) U/L Nasal Screen MRSA (PCR) (Negative) Chlamy pneumoniae PCR (Not Detect) Adenovirus (PCR) (Not Detect) B.parapertussis DNA PCR (Not Detect) Coronavirus OC43 (PCR) (Not Detect) Coronavirus HKU1 (PCR) (Not Detect) Coronavirus 229E (PCR) (Not Detect) Coronavirus NL63 (PCR) (Not Detect) Human Metapneumovir PCR (Not Detect) Influenza Type A (PCR) (Not Detect) Influenza Type B (PCR) (Not Detect) Influenza A & B (PCR) (Negative) M. pneumoniae (PCR) (Not Detect) Parainfluenza 1 (PCR) (Not Detect) Parainfluenza 2 (PCR) (Not Detect) Parainfluenza 3 (PCR) (Not Detect) Parainfluenza 4 (PCR) (Not Detect) RSV (PCR) (Not Detect) Entero/Rhino (PCR) (Not Detect) Blood Type Antibody Screen Crossmatch 01/04/19 01/04/19 01/04/19 Range/Units 10:50 10:50 10:54 WBC (4.5-11.0) X10^3/uL RBC (4.5-5.9) X10^6/uL Hgb (13.5-17.5) g/dL Hct (41-53) % MCV (80-100) fL MCH (26-34) PG MCHC (30-36) % RDW (11.6-14.8) % Plt Count (150-400) X10^3/uL Neut % (Auto) (50-75) % Lymph % (Auto) (25-40) % [place] % (Auto) (3-14) % Eos % (Auto) (2-4) % Baso % (Auto) (0-2) % Neut # (Auto) (7820-7683) /uL Lymph # (Auto) (3693-9137) /uL [place] # (Auto) (0-900) /uL Eos # (Auto) (0-450) /uL Baso # (Auto) (0-100) /uL PT (10.1-12.7) SECONDS INR (0.9-1.3) APTT (26.4-36.2) SECONDS ABG pH (7.35-7.45) ABG pCO2 (35-45) mmHg ABG pO2 (80-100) mmHg ABG HCO3 (22-26) mmol/L ABG Total CO2 (21-31) mmol/L ABG O2 Saturation (95-100) % ABG Base Excess (-2-2) mmol/L FiO2 Sodium (137-145) mmol/L Potassium (3.4-5.1) mmol/L Chloride (98-107) mmol/L Carbon Dioxide (22-32) mmol/L BUN (9-20) mg/dL Creatinine (0.66-1.25) mg/dL Estimated GFR (>60) mL/min BUN/Creatinine Ratio (6-22) Glucose (80-110) mg/dL Lactate 0.6 L (0.7-2.1) mmol/L Calcium (8.4-10.2) mg/dL Total Bilirubin (0.2-1.3) mg/dL AST (17-59) IU/L ALT (21-72) IU/L Alkaline Phosphatase (38-126) U/L Troponin I (0.01-0.034) ng/mL Total Protein (6.3-8.2) g/dL Albumin (3.5-5.0) g/dL Globulin (1.7-4.1) g/dL Albumin/Globulin Ratio (1.0-2.8) Lipase 44 (23-300) U/L Nasal Screen MRSA (PCR) (Negative) Chlamy pneumoniae PCR (Not Detect) Adenovirus (PCR) (Not Detect) B.parapertussis DNA PCR (Not Detect) Coronavirus OC43 (PCR) (Not Detect) Coronavirus HKU1 (PCR) (Not Detect) Coronavirus 229E (PCR) (Not Detect) Coronavirus NL63 (PCR) (Not Detect) Human Metapneumovir PCR (Not Detect) Influenza Type A (PCR) (Not Detect) Influenza Type B (PCR) (Not Detect) Influenza A & B (PCR) (Negative) M. pneumoniae (PCR) (Not Detect) Parainfluenza 1 (PCR) (Not Detect) Parainfluenza 2 (PCR) (Not Detect) Parainfluenza 3 (PCR) (Not Detect) Parainfluenza 4 (PCR) (Not Detect) RSV (PCR) (Not Detect) Entero/Rhino (PCR) (Not Detect) Blood Type A Positive Antibody Screen Negative Crossmatch See Detail 01/04/19 01/04/19 01/04/19 Range/Units 13:12 13:15 14:25 WBC (4.5-11.0) X10^3/uL RBC (4.5-5.9) X10^6/uL Hgb (13.5-17.5) g/dL Hct (41-53) % MCV (80-100) fL MCH (26-34) PG MCHC (30-36) % RDW (11.6-14.8) % Plt Count (150-400) X10^3/uL Neut % (Auto) (50-75) % Lymph % (Auto) (25-40) % [place] % (Auto) (3-14) % Eos % (Auto) (2-4) % Baso % (Auto) (0-2) % Neut # (Auto) (6863-7643) /uL Lymph # (Auto) (5858-2927) /uL [place] # (Auto) (0-900) /uL Eos # (Auto) (0-450) /uL Baso # (Auto) (0-100) /uL PT (10.1-12.7) SECONDS INR (0.9-1.3) APTT (26.4-36.2) SECONDS ABG pH 7.28 L* (7.35-7.45) ABG pCO2 76.7 H* (35-45) mmHg ABG pO2 92 (80-100) mmHg ABG HCO3 36 H (22-26) mmol/L ABG Total CO2 39 H (21-31) mmol/L ABG O2 Saturation 95 (95-100) % ABG Base Excess 10.0 H (-2-2) mmol/L FiO2 28 Sodium (137-145) mmol/L Potassium (3.4-5.1) mmol/L Chloride (98-107) mmol/L Carbon Dioxide (22-32) mmol/L BUN (9-20) mg/dL Creatinine (0.66-1.25) mg/dL Estimated GFR (>60) mL/min BUN/Creatinine Ratio (6-22) Glucose (80-110) mg/dL Lactate (0.7-2.1) mmol/L Calcium (8.4-10.2) mg/dL Total Bilirubin (0.2-1.3) mg/dL AST (17-59) IU/L ALT (21-72) IU/L Alkaline Phosphatase (38-126) U/L Troponin I (0.01-0.034) ng/mL Total Protein (6.3-8.2) g/dL Albumin (3.5-5.0) g/dL Globulin (1.7-4.1) g/dL Albumin/Globulin Ratio (1.0-2.8) Lipase (23-300) U/L Nasal Screen MRSA (PCR) Negative for mrsa (Negative) Chlamy pneumoniae PCR Not detected (Not Detect) Adenovirus (PCR) Not detected (Not Detect) B.parapertussis DNA PCR Not detected (Not Detect) Coronavirus OC43 (PCR) Not detected (Not Detect) Coronavirus HKU1 (PCR) Not detected (Not Detect) Coronavirus 229E (PCR) Not detected (Not Detect) Coronavirus NL63 (PCR) Not detected (Not Detect) Human Metapneumovir PCR Not detected (Not Detect) Influenza Type A (PCR) Not detected (Not Detect) Influenza Type B (PCR) Not detected (Not Detect) Influenza A & B (PCR) Negative (Negative) M. pneumoniae (PCR) Not detected (Not Detect) Parainfluenza 1 (PCR) Not detected (Not Detect) Parainfluenza 2 (PCR) Not detected (Not Detect) Parainfluenza 3 (PCR) Not detected (Not Detect) Parainfluenza 4 (PCR) Not detected (Not Detect) RSV (PCR) Not detected (Not Detect) Entero/Rhino (PCR) Not detected (Not Detect) Blood Type Antibody Screen Crossmatch Point of Care Testing Stool Occult Blood Negative Urine Dip Bedside Urine Glucose Negative Bedside Urine Bilirubin - Negative Bedside Urine Ketone - Negative Urine Specific [place] 1.030 Bedside Urine Occult Blood - Negative Bedside Urine pH 5.5 Bedside Urine Protein - Negative Bedside Urine Urobilinogen - Negative Bedside Urine Nitrite - Negative Bedside Urine Leukocytes - Negative Esterase <Karolina Johnson, DO - Last Filed: 01/04/19 20:10> Lab Data Attestation: I reviewed the patient's lab results. Lab Results 01/04/19 01/04/19 01/04/19 Range/Units 10:50 10:50 10:50 WBC 5.6 (4.5-11.0) X10^3/uL RBC 2.57 L (4.5-5.9) X10^6/uL Hgb 8.5 L (13.5-17.5) g/dL Hct 26.0 L (41-53) % MCV 101.0 H (80-100) fL MCH 32.9 (26-34) PG MCHC 32.6 (30-36) % RDW 13.4 (11.6-14.8) % Plt Count 178 (150-400) X10^3/uL Neut % (Auto) 79.0 H (50-75) % Lymph % (Auto) 9.9 L (25-40) % [place] % (Auto) 8.4 (3-14) % Eos % (Auto) 1.8 L (2-4) % Baso % (Auto) 0.9 (0-2) % Neut # (Auto) 4400 (0882-3184) /uL Lymph # (Auto) 600 L (0702-4134) /uL [place] # (Auto) 500 (0-900) /uL Eos # (Auto) 100 (0-450) /uL Baso # (Auto) 0 (0-100) /uL PT 12.3 (10.1-12.7) SECONDS INR 1.1 (0.9-1.3) APTT 30 (26.4-36.2) SECONDS ABG pH (7.35-7.45) ABG pCO2 (35-45) mmHg ABG pO2 (80-100) mmHg ABG HCO3 (22-26) mmol/L ABG Total CO2 (21-31) mmol/L ABG O2 Saturation (95-100) % ABG Base Excess (-2-2) mmol/L FiO2 Sodium 144 (137-145) mmol/L Potassium 4.7 (3.4-5.1) mmol/L Chloride 96 L (98-107) mmol/L Carbon Dioxide 42 H* (22-32) mmol/L BUN 60 H (9-20) mg/dL Creatinine 1.50 H (0.66-1.25) mg/dL Estimated GFR 45.4 L (>60) mL/min BUN/Creatinine Ratio 40.0 H (6-22) Glucose 109 (80-110) mg/dL Lactate (0.7-2.1) mmol/L Calcium 10.0 (8.4-10.2) mg/dL Total Bilirubin 0.5 (0.2-1.3) mg/dL AST 24 (17-59) IU/L ALT 28 (21-72) IU/L Alkaline Phosphatase 52 (38-126) U/L Troponin I 0.206 H* (0.01-0.034) ng/mL Total Protein 6.0 L (6.3-8.2) g/dL Albumin 3.5 (3.5-5.0) g/dL Globulin 2.5 (1.7-4.1) g/dL Albumin/Globulin Ratio 1.4 (1.0-2.8) Lipase (23-300) U/L Nasal Screen MRSA (PCR) (Negative) Chlamy pneumoniae PCR (Not Detect) Adenovirus (PCR) (Not Detect) B.parapertussis DNA PCR (Not Detect) Coronavirus OC43 (PCR) (Not Detect) Coronavirus HKU1 (PCR) (Not Detect) Coronavirus 229E (PCR) (Not Detect) Coronavirus NL63 (PCR) (Not Detect) Human Metapneumovir PCR (Not Detect) Influenza Type A (PCR) (Not Detect) Influenza Type B (PCR) (Not Detect) Influenza A & B (PCR) (Negative) M. pneumoniae (PCR) (Not Detect) Parainfluenza 1 (PCR) (Not Detect) Parainfluenza 2 (PCR) (Not Detect) Parainfluenza 3 (PCR) (Not Detect) Parainfluenza 4 (PCR) (Not Detect) RSV (PCR) (Not Detect) Entero/Rhino (PCR) (Not Detect) Blood Type Antibody Screen Crossmatch 01/04/19 01/04/19 01/04/19 Range/Units 10:50 10:50 10:54 WBC (4.5-11.0) X10^3/uL RBC (4.5-5.9) X10^6/uL Hgb (13.5-17.5) g/dL Hct (41-53) % MCV (80-100) fL MCH (26-34) PG MCHC (30-36) % RDW (11.6-14.8) % Plt Count (150-400) X10^3/uL Neut % (Auto) (50-75) % Lymph % (Auto) (25-40) % [place] % (Auto) (3-14) % Eos % (Auto) (2-4) % Baso % (Auto) (0-2) % Neut # (Auto) (4553-3819) /uL Lymph # (Auto) (9215-2467) /uL [place] # (Auto) (0-900) /uL Eos # (Auto) (0-450) /uL Baso # (Auto) (0-100) /uL PT (10.1-12.7) SECONDS INR (0.9-1.3) APTT (26.4-36.2) SECONDS ABG pH (7.35-7.45) ABG pCO2 (35-45) mmHg ABG pO2 (80-100) mmHg ABG HCO3 (22-26) mmol/L ABG Total CO2 (21-31) mmol/L ABG O2 Saturation (95-100) % ABG Base Excess (-2-2) mmol/L FiO2 Sodium (137-145) mmol/L Potassium (3.4-5.1) mmol/L Chloride (98-107) mmol/L Carbon Dioxide (22-32) mmol/L BUN (9-20) mg/dL Creatinine (0.66-1.25) mg/dL Estimated GFR (>60) mL/min BUN/Creatinine Ratio (6-22) Glucose (80-110) mg/dL Lactate 0.6 L (0.7-2.1) mmol/L Calcium (8.4-10.2) mg/dL Total Bilirubin (0.2-1.3) mg/dL AST (17-59) IU/L ALT (21-72) IU/L Alkaline Phosphatase (38-126) U/L Troponin I (0.01-0.034) ng/mL Total Protein (6.3-8.2) g/dL Albumin (3.5-5.0) g/dL Globulin (1.7-4.1) g/dL Albumin/Globulin Ratio (1.0-2.8) Lipase 44 (23-300) U/L Nasal Screen MRSA (PCR) (Negative) Chlamy pneumoniae PCR (Not Detect) Adenovirus (PCR) (Not Detect) B.parapertussis DNA PCR (Not Detect) Coronavirus OC43 (PCR) (Not Detect) Coronavirus HKU1 (PCR) (Not Detect) Coronavirus 229E (PCR) (Not Detect) Coronavirus NL63 (PCR) (Not Detect) Human Metapneumovir PCR (Not Detect) Influenza Type A (PCR) (Not Detect) Influenza Type B (PCR) (Not Detect) Influenza A & B (PCR) (Negative) M. pneumoniae (PCR) (Not Detect) Parainfluenza 1 (PCR) (Not Detect) Parainfluenza 2 (PCR) (Not Detect) Parainfluenza 3 (PCR) (Not Detect) Parainfluenza 4 (PCR) (Not Detect) RSV (PCR) (Not Detect) Entero/Rhino (PCR) (Not Detect) Blood Type A Positive Antibody Screen Negative Crossmatch See Detail 01/04/19 01/04/19 01/04/19 Range/Units 13:12 13:15 14:25 WBC (4.5-11.0) X10^3/uL RBC (4.5-5.9) X10^6/uL Hgb (13.5-17.5) g/dL Hct (41-53) % MCV (80-100) fL MCH (26-34) PG MCHC (30-36) % RDW (11.6-14.8) % Plt Count (150-400) X10^3/uL Neut % (Auto) (50-75) % Lymph % (Auto) (25-40) % [place] % (Auto) (3-14) % Eos % (Auto) (2-4) % Baso % (Auto) (0-2) % Neut # (Auto) (2201-3053) /uL Lymph # (Auto) (9642-7644) /uL [place] # (Auto) (0-900) /uL Eos # (Auto) (0-450) /uL Baso # (Auto) (0-100) /uL PT (10.1-12.7) SECONDS INR (0.9-1.3) APTT (26.4-36.2) SECONDS ABG pH 7.28 L* (7.35-7.45) ABG pCO2 76.7 H* (35-45) mmHg ABG pO2 92 (80-100) mmHg ABG HCO3 36 H (22-26) mmol/L ABG Total CO2 39 H (21-31) mmol/L ABG O2 Saturation 95 (95-100) % ABG Base Excess 10.0 H (-2-2) mmol/L FiO2 28 Sodium (137-145) mmol/L Potassium (3.4-5.1) mmol/L Chloride (98-107) mmol/L Carbon Dioxide (22-32) mmol/L BUN (9-20) mg/dL Creatinine (0.66-1.25) mg/dL Estimated GFR (>60) mL/min BUN/Creatinine Ratio (6-22) Glucose (80-110) mg/dL Lactate (0.7-2.1) mmol/L Calcium (8.4-10.2) mg/dL Total Bilirubin (0.2-1.3) mg/dL AST (17-59) IU/L ALT (21-72) IU/L Alkaline Phosphatase (38-126) U/L Troponin I (0.01-0.034) ng/mL Total Protein (6.3-8.2) g/dL Albumin (3.5-5.0) g/dL Globulin (1.7-4.1) g/dL Albumin/Globulin Ratio (1.0-2.8) Lipase (23-300) U/L Nasal Screen MRSA (PCR) Negative for mrsa (Negative) Chlamy pneumoniae PCR Not detected (Not Detect) Adenovirus (PCR) Not detected (Not Detect) B.parapertussis DNA PCR Not detected (Not Detect) Coronavirus OC43 (PCR) Not detected (Not Detect) Coronavirus HKU1 (PCR) Not detected (Not Detect) Coronavirus 229E (PCR) Not detected (Not Detect) Coronavirus NL63 (PCR) Not detected (Not Detect) Human Metapneumovir PCR Not detected (Not Detect) Influenza Type A (PCR) Not detected (Not Detect) Influenza Type B (PCR) Not detected (Not Detect) Influenza A & B (PCR) Negative (Negative) M. pneumoniae (PCR) Not detected (Not Detect) Parainfluenza 1 (PCR) Not detected (Not Detect) Parainfluenza 2 (PCR) Not detected (Not Detect) Parainfluenza 3 (PCR) Not detected (Not Detect) Parainfluenza 4 (PCR) Not detected (Not Detect) RSV (PCR) Not detected (Not Detect) Entero/Rhino (PCR) Not detected (Not Detect) Blood Type Antibody Screen Crossmatch Point of Care Testing Stool Occult Blood Negative Urine Dip Bedside Urine Glucose Negative Bedside Urine Bilirubin - Negative Bedside Urine Ketone - Negative Urine Specific [place] 1.030 Bedside Urine Occult Blood - Negative Bedside Urine pH 5.5 Bedside Urine Protein - Negative Bedside Urine Urobilinogen - Negative Bedside Urine Nitrite - Negative Bedside Urine Leukocytes - Negative Esterase Imaging Data CT scan - head: Radiologist's impression: Klever Steiner 78 M 1940 [place] [address] CT Scan Report Signed Patient: Klever Steiner FMR#: [id number] : 1940cct:[id number] Age/Sex: 78 / MDate of Service: 01/04/19 Loc: ED Accession Number: [id number] Procedure: CT head/brain wo con Ordering Provider: Karolina Johnson D.O. PROCEDURE: CT HEAD/BRAIN WO CON INDICATIONS: altered mental status, hx prostate cancer, diarrhea TECHNIQUE: Noncontrast 4.5 mm thick angled axial sections acquired from the foramen magnum to the vertex, with coronal and sagittal reformats. For radiation dose reduction, the following was used: automated exposure control, adjustment of mA and/or kV according to patient size. COMPARISON: None. FINDINGS: Image quality: Excellent. CSF spaces: Basal cisterns are patent. No extra-axial fluid collections. Ventricles are rather prominent with corresponding parenchymal volume loss. Brain: No midline shift. No intracranial masses or hemorrhage. West-white matter interface is normal. Subtle foci of low attenuation within the right basal ganglia may represent Virchow-Bret spaces versus prior lacunar infarctions. Skull and face: Calvarium and visualized facial bones are intact, without suspicious lesions. Sinuses: Visualized sinuses and mastoids are clear. IMPRESSION: 1. No acute intracranial hemorrhage. 2. Mild parenchymal volume loss and probable chronic small vessel ischemic changes. 3. No obvious parenchymal masses. If there is clinical concern for metastatic disease to the brain, a contrast enhanced MRI would be helpful for better characterization. Dictated by: Gurdeep Forbes M.D. on 01/04/2019 at 10:18 Approved by: Gurdeep Forbes M.D. on 01/04/2019 at 10:20 AAS: Radiologist's impression: Klever Steiner 78 M [address] [address] XRay Report Signed Patient: Klever Steiner FMR#: [id number] : [id number]:[id number] Age/Sex: 78 / MDate of Service: 01/04/19 Loc: ED Accession Number: [id number] Procedure: XR acute abdomen series Ordering Provider: Karolina Johnson D.O. PROCEDURE: XR ACUTE ABDOMEN SERIES INDICATIONS: diarrhea, altered mental status TECHNIQUE: One view chest and two views of the abdomen were acquired. COMPARISON: None. FINDINGS: Surgical changes and devices: Multiple surgical clips are seen within the left upper quadrant and within the pelvis. Postoperative changes related to total left hip arthroplasty are also noted. Chest: The lungs are well aerated no focal consolidation, effusion, or pneumothorax. There may be minimal atelectasis versus scarring within the lateral margins of the bilateral lung bases. The heart is normal in size. Mediastinal silhouette is also within normal limits. There is aortic atherosclerosis. Degenerative changes of the spine are not well characterized. Abdomen: The bowel gas pattern is nonspecific. However, air and stool are seen throughout the colon. Moderate amount of residual stool is identified within the lower colon (pelvic region). No air-filled distended small bowel loops are identified demonstrating air-fluid levels. No definitive evidence of organomegaly is identified. There is no pneumoperitoneum. Degenerative changes of the lumbar spine, sacroiliac joints, and right hip are noted. IMPRESSION: 1. No bowel obstruction. 2. Moderate residual stool within the distal colon may represent constipation. 3. Minimal scarring/atelectasis within the lung bases. No acute cardiopulmonary process is evident. Dictated by: Gurdeep Forbes M.D. on 01/04/2019 at 10:34 Approved by: Gurdeep Forbes M.D. on 01/04/2019 at 10:38 ECG Data Attestation: I personally reviewed and interpreted this ECG as follows: Prior ECG tracings: available for review Interpretation: EKG shows a sinus, sinus arrhythmia. Rate is 71 p.r. 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 Patient has a prior EKG from 10/15/2018 that it appears similar except the T-wave in peers inverted in 2 3 and AVF. Otherwise appears fairly similar MDM Narrative Medical decision making narrative: Patient is unable to really answer questions or make his own decisions at this time. His caregiver has his daughter contact information and she was called. We discussed his pulse form he is DNR/DNI. She is okay with BiPAP but if he pulled off for states he does not want she would honor those wishes. We discussed that his blood count appears decreased at 8 from 10 in the past. She gives verbal consent for blood transfusion, patient's caregiver was in the room for the conversation. His his troponin is elevated in the positive range at 0.206, and with his anemia he would be a candidate for 2 unit packed red blood cells, renal function has improved from 12/31/2018 from 2.2-1.5 today, BUN is slightly elevated. Plan for a dose of Lasix in between units of PRBCs Carbon dioxide is 42 which he has been in that range before. ABG was checked and shows a acidosis at 7.28 with a CO2 of 76 which is not compensated. Bicarb is 36. On FiO2 of 28 with a PaO2 of 92. It is unclear as patient can't really tell me if he has any chest pain he does not appear to be in any respiratory distress but his confusion could be secondary to his hypercapnia. Placed on BiPAP. Patient received aspirin 324 mg although with his decreasing hemoglobin stool occult was done which was negative here in the ER. He has been taking Eliquis which does put him at risk. I spoke with Cardiology through [facility] where he was hospitalized and seen most recently in followup with dull when hole that. They felt that patient did not need acute intervention. He would possibly be a candidate if he continued to have rising troponin but they would just trend out his troponins at this time. They did not feel that he needed to be transferred at this time. I spoke with Dr. Samayoa who accepts, plan for ICU as patient is receiving bipap. <Karolina Johnson, DO - Last Filed: 01/04/19 20:10> Critical Care Time: Yes Total Critical Care Time: 65 Attestation: The high probability of a clinically significant, sudden or life threatening deterioration of the [cardiac, pulm] system(s) required my full and direct attention, intervention and personal management. The aggregate critical care time was [65] minutes. This time is in addition to time spent performing reported procedures but includes the following: [x] Data Review and interpretation [x] Patient assessment and monitoring of vital signs [x] Documentation [x] Medication orders and management Discharge Plan Departure Patient Disposition: Admitted As Inpatient Clinical Impression: Anemia, Elevated troponin, Acute hypercapnic respiratory failure Discharge Date/Time: 01/04/19 14:30 Admit Date/Time: 01/04/19 14:10 Admit Provider: Leonel Samayoa
[2019-01-04 11:06] LABS: Add Manual Diff / Slide Review NO; Basophils Absolute Auto 0 /uL (0-100); Basophils Percent Auto 0.9 % (0-2); Eosinophils Absolute Auto 100 /uL (0-450); Eosinophils Percent Auto 1.8 % (2-4); Hemoglobin 8.5 g/dL (13.5-17.5); Lymphocytes Absolute Auto 600 /uL (1100-4500); Lymphocytes Percent Auto 9.9 % (25-40); Mean Corpuscular HGB Conc 32.6 % (30-36); Mean Corpuscular Hemoglobin 32.9 PG (26-34); Monocytes Absolute Auto 500 /uL (0-900); Monocytes Percent Auto 8.4 % (3-14); Neutrophils Absolute Auto 4400 /uL (1500-7000); Platelet Count 178 X10^3/uL (150-400); Red Blood Cell Count 2.57 X10^6/uL (4.5-5.9); Red Cell Distribution Width 13.4 % (11.6-14.8); White Blood Cell Count 5.6 X10^3/uL (4.5-11.0)
[2019-01-04 11:09] LABS: INR 1.1 (0.9-1.3); Prothrombin Time 12.3 SECONDS (10.1-12.7)
[2019-01-04 11:11] LABS: Alanine Aminotransferase 28 IU/L (21-72); Albumin 3.5 g/dL (3.5-5.0); Albumin Globulin Ratio 1.4 (1.0-2.8); Alkaline Phosphatase 52 U/L (38-126); Aspartate Aminotransferase 24 IU/L (17-59); Bilirubin Total 0.5 mg/dL (0.2-1.3); Blood Urea Nitrogen 60 mg/dL (9-20); Chloride 96 mmol/L (98-107); Estimated Glomerular Filt Rate 45.4 mL/min (>60); Globulin 2.5 g/dL (1.7-4.1); Glucose 109 mg/dL (80-110); HEMOLYSIS 50 (0-50); Lipase 44 U/L (23-300); PTT Partial Thromboplastin Tim 30 SECONDS (26.4-36.2); Potassium 4.7 mmol/L (3.4-5.1); Sodium 144 mmol/L (137-145)
--- NOTE | 2019-01-04 11:11 | DI.CT.S_ITS ---
PROCEDURE: CT HEAD/BRAIN WO CON INDICATIONS: altered mental status, hx prostate cancer, diarrhea TECHNIQUE: Noncontrast 4.5 mm thick angled axial sections acquired from the foramen magnum to the vertex, with coronal and sagittal reformats. For radiation dose reduction, the following was used: automated exposure control, adjustment of mA and/or kV according to patient size. COMPARISON: None. FINDINGS: Image quality: Excellent. CSF spaces: Basal cisterns are patent. No extra-axial fluid collections. Ventricles are rather prominent with corresponding parenchymal volume loss. Brain: No midline shift. No intracranial masses or hemorrhage. West-white matter interface is normal. Subtle foci of low attenuation within the right basal ganglia may represent Virchow-Bret spaces versus prior lacunar infarctions. Skull and face: Calvarium and visualized facial bones are intact, without suspicious lesions. Sinuses: Visualized sinuses and mastoids are clear. IMPRESSION: 1. No acute intracranial hemorrhage. 2. Mild parenchymal volume loss and probable chronic small vessel ischemic changes. 3. No obvious parenchymal masses. If there is clinical concern for metastatic disease to the brain, a contrast enhanced MRI would be helpful for better characterization. Dictated by: Gurdeep Forbes M.D. on 01/04/2019 at 10:18 Approved by: Gurdeep Forbes M.D. on 01/04/2019 at 10:20
[2019-01-04 11:19] LABS: Carbon Dioxide 42 mmol/L (22-32)
[2019-01-04 11:47] LABS: Troponin I 0.206 ng/mL (0.01-0.034)
[2019-01-04 12:09] LABS: Lactate (Lactic Acid) 0.6 mmol/L (0.7-2.1)
[2019-01-04] MEDS: PANTOPRAZOLE 80 MG in SODIUM CHLORIDE 0.9% 100 ML 200 ML IV (13:02)
[2019-01-04] MEDS: ASPIRIN 81 MG TAB 324 MG PO (13:02)
[2019-01-04 13:29] LABS: HCO3 ABG 36 mmol/L (22-26); Oxygen Saturation ABG 95 % (95-100); PCO2 ABG 76.7 mmHg (35-45); PO2 ABG 92 mmHg (80-100); TCO2 ABG 39 mmol/L (21-31); pH ABG 7.28 (7.35-7.45)
[2019-01-04 13:30] LABS: Fractionated Inspired Oxygen 28
[2019-01-04 13:50] LABS: Influenza A and B by PCR Rapid Negative (Negative)
--- NOTE | 2019-01-04 14:49 | PC.ADMIT ---
Admission Note: Patient arrived to room 104 via stretcher from ER at 1425. Transferred via slider board without issue. Bipap in place upon transfer with FiO2 30% and oxygen sats 97%. Pt drowsy but awakens to voice, answering yes or no questions. Dena, caregiver, at bedside. Oriented pt to room and to call light/bed/tv controls. Call light within reach. The patient,Klever Steiner,78 y/o, was given written information regarding hospital policies, unit procedures and contact persons. Patient's smoking status: Former smoker. Vital Signs - 8 hr 01/04/19 10:50 01/04/19 11:26 01/04/19 12:00 Temperature 98.1 F Pulse Rate 79 72 74 Respiratory Rate 16 16 16 Blood Pressure 132/51 L Blood Pressure [Right Arm] 136/57 L 135/58 L Pulse Oximetry 95 100 95 01/04/19 12:11 01/04/19 12:30 01/04/19 13:00 Temperature 98.1 F Pulse Rate 74 73 89 Respiratory Rate 16 19 20 Blood Pressure 132/51 L Blood Pressure [Right Arm] 129/64 121/54 L Pulse Oximetry 95 100 98 01/04/19 13:30 01/04/19 14:00 Temperature Pulse Rate 70 69 Respiratory Rate 15 14 Blood Pressure Blood Pressure [Right Arm] 130/49 L 125/58 L Pulse Oximetry 100 96
--- NOTE | 2019-01-04 15:17 | P.HP_ITS ---
History of Present Illness Date Patient Seen: 01/04/19 Chief complaint: Fever / Confused Narrative: Patient presented to the [facility] Emergency Department on the day of admission with complaints of fever of 102+ day prior to admission. He had been found down at home day of admission by his caregivers without his oxygen on and confused disoriented etc. He apparently had lost control of bowels evidence of diarrhea as well. Patient's only recollection is having severe diarrhea unlike anything he would e xperience before. Does not seem to have clear recollection of much of anything beyond that and inability to get hold of his caregivers. Patient was admitted to [facility] in [place] recently because of confusion and hypoxia. He was in [facility] visiting [facility] which is how he ended up but that facility. He was found to be in acute on chronic congestive heart failure with new evidence of severe left ventricular systolic dysfunction with ejection fraction in the 20-25% range with global hypokinesis. It was unclear whether this was ischemic or not any did not undergo any invasive p rocedures His COPD was treated as well and he improved. He was discharged to prison stay there for 2+ weeks. Then was discharged home just last week. He was seen in the clinic by myself and advised strongly to obtain 24/7 caregivers at a minimum and that an alternate living facility would be far more appropriate as he clearly had some persistent confusion disorientation/cognitive dysfunction had issues with his medication. He also had become nutritionally challenged over the last several months at home living independently although had gained some weight while under the care of the hospital and prison facility. Patient History Medical History Chronic renal failure, stage 2 (mild) (Chronic) Cardiomyopathy (Chronic) Chronic obstructive pulmonary disease (Chronic 04/17/11) Atrial fibrillation (Chronic 04/17/11) Hypertension (Chronic 04/17/11) Acquired hypothyroidism (Chronic 12/20/12) Malignant neoplasm of prostate (Chronic 07/28/17) Anxiety (Chronic 11/24/13) Osteoarthritis (Chronic 04/17/11) Insomnia (Chronic 09/26/14) History of adenomatous polyp of colon (Chronic) Chicken pox (Resolved ~194) Closed left hip fracture (Resolved) Fracture (Resolved) Elevated PSA (Inactive ~2003) Surgical History History of bowel resection (Inactive) History of cataract removal with insertion of prosthetic lens (Inactive ~2008) History of cataract removal with insertion of prosthetic lens (Inactive ~2011) History of hip replacement (Inactive) History of prostatectomy (Inactive ~2003) Family History Mother Diabetes mellitus Father No problems noted. Grandfather No problems noted. Grandmother No problems noted. Grandfather No problems noted. Grandmother No problems noted. Sister No problems noted. Social History Smoking Status: Former smoker Family & Social History Family History Mother Diabetes mellitus Father No problems noted. Grandfather No problems noted. Grandmother No problems noted. Grandfather No problems noted. Grandmother No problems noted. Sister No problems noted. Tobacco & Substance use: Smoking Status Former smoker alcohol intake frequency a few times a week Substance Use Type does not use Meds Home Medications Medication Instructions Recorded Confirmed Type polyethylene glycol 3350 [Miralax] 17 gm PO QDAY PRN #0 10/20/17 01/04/19 History albuterol sulfate HFA 90 2 puff INHALATION Q4-6H PRN 02/03/18 01/04/19 History mcg/actuation aerosol inhaler fluticasone propion-salmeterol 1 puff INH BID #1 ea 09/06/18 01/04/19 Rx [Advair Diskus] levothyroxine [Synthroid] 0.075 mg PO QAM #30 tab 09/06/18 01/04/19 Rx Disabled Parking Permit 1 ea MISCELLANEOUS DIRECTED 10/15/18 01/04/19 History bupropion HCl [Wellbutrin XL] 150 mg PO BEDTIME 10/15/18 01/04/19 History lorazepam [Ativan] 1 mg PO DAILY PRN 10/15/18 01/04/19 History multivitamin 1 tab PO DAILY 10/15/18 01/04/19 History tolterodine ER 2 mg 2 mg PO DAILY #90 cap 10/21/18 01/04/19 Rx capsule,extended release 24 hr tiotropium bromide 18 mcg capsule 1 cap INHALATION DAILY #90 caplet 10/25/18 01/04/19 Rx with inhalation device triamcinolone acetonide 0.1 % 1 applictn TOP DAILY #80 gram 10/25/18 01/04/19 Rx topical cream chlorthalidone 25 mg tablet 25 mg PO DAILY #90 tab 11/02/18 01/04/19 Rx apixaban 2.5 mg tablet 2.5 mg PO BID 12/31/18 01/04/19 History calcium carbonate 500 mg calcium 500 mg PO QID #30 tab 12/31/18 01/04/19 Rx (1,250 mg) tablet carvedilol 6.25 mg tablet 6.25 mg PO BID 12/31/18 01/04/19 History clonazepam 1 mg tablet 0.5 mg PO BID #180 tab 12/31/18 01/04/19 Rx enalapril maleate 2.5 mg tablet 7.5 mg PO BID tab 12/31/18 01/04/19 History Allergies Allergy/AdvReac Type Severity Reaction Status Date / Time No Known Drug Allergies Allergy Verified 01/04/19 10:50 Review of Systems Constitutional Constitutional: Reports fever(s), Denies headache(s) and Reports weakness Eyes Eyes: Denies change in vision and Denies loss of vision ENT Ears, Nose, Mouth, and Throat: No difficulty swallowing and No headache(s) Cardiovascular Cardiovascular: Denies chest pain, Denies fainting, Denies fast heart rate, D enies irregular heart rhythm, Denies rapid, pounding, or irregular heartbeat, Reports shortness of breath, Reports shortness of breath with activity and Denies slow heart rate Respiratory Respiratory: Denies chest congestion, Denies cough, Reports dyspnea, Reports dyspnea on exertion and Denies wheezing Gastrointestinal Gastrointestinal: Denies abdominal pain, Denies bloating, Denies dysphagia, Denies nausea, Denies vomiting and Denies hematemesis Genitourinary Genitourinary: Denies hematuria, Denies difficulty urinating and Denies urinary frequency Musculoskeletal Musculoskeletal: Denies myalgias, Denies arthralgias and Denies limited range of motion Integumentary/Breasts Skin/Breast: Denies bleeding lesions, Denies change in pigmentation, Denies changing lesions, Denies new lesions, Denies rash, Denies skin swelling, Denies sores and Denies jaundice Neurologic Neurologic: Denies syncope, Denies headache(s), Denies focal weakness, Denies loss of vision and Reports weakness Endocrine Endocrine: Denies palpitations Hematologic/Lymphatic Hematologic/Lymphatic: Denies easy bleeding, Denies easy bruising and Denies lymphadenopathy Allergic/Immunologic Allergic/Immunologic: Denies wheezing Exam Vital Signs (past 8 hours): - 01/04/19 10:50 01/04/19 11:26 01/04/19 12:00 Temperature 98.1 F Pulse Rate 79 72 74 Respiratory Rate 16 16 16 Blood Pressure 132/51 L Blood Pressure [Right Arm] 136/57 L 135/58 L Pulse Oximetry 95 100 95 01/04/19 12:11 01/04/19 12:30 01/04/19 13:00 Temperature 98.1 F Pulse Rate 74 73 89 Respiratory Rate 16 19 20 Blood Pressure 132/51 L Blood Pressure [Right Arm] 129/64 121/54 L Pulse Oximetry 95 100 98 01/04/19 13:30 01/04/19 14:00 01/04/19 14:29 Temperature 99.2 F Pulse Rate 70 69 76 Respiratory Rate 15 14 20 Blood Pressure 120/58 L Blood Pressure [Right Arm] 130/49 L 125/58 L Pulse Oximetry 100 96 97 01/04/19 14:57 Temperature 99.2 F Pulse Rate 76 Respiratory Rate 20 Blood Pressure 120/58 L Blood Pressure [Right Arm] Pulse Oximetry Fraction of Inspired Oxygen 0.3 Oxygen Delivery Method Room Air Oxygen Flow Rate 0 Const General: cooperative, comfortable, well developed and frail appearing Nutritional Appearance: malnourished Orientation: alert, awake, oriented to person and oriented to place [facility] Head: normocephalic, atraumatic, No cyanosis of lips/distal nose, No raccoon eyes and No periorbital ecchymosis Ears: hearing grossly normal bilaterally and external ears normal Nose: external nose normal and nares normal Face and sinus: normal facial exam and face symmetric Mouth: oral mucosae normal, lip normal and tongue normal Eyes Alignment and Position: alignment normal Periorbital: periorbital findings normal Eyelids: eyelids normal Conjunctivae: conjunctivae normal Sclera: sclerae normal Cornea: corneas normal Pupils: PERRL EOM: EOM intact bilaterally Neck Neck: normal visual inspection, full ROM, trachea midline and No anterior neck swelling Thyroid: not diffusely enlarged Carotids: normal carotid upstroke Lymphatic: No lymphadenopathy Chest Chest: normal inspection of the chest, No crepitus and No tenderness Breast inspection: normal inspection of the breasts Resp Effort & Inspection: normal respiratory effort (Normal for this patient), able to speak in complete sentences, no audible wheezes, no cough, no retractions and not tachypneic Auscultation: clear to auscultation bilaterally, abnormal I/E ratio, diminished lung sounds (Seems to be at baseline), no rales, no rhonchi, no wheezes and no rubs Percussion: percussion normal Tactile Fremitus: tactile fremitus absent Cardio Palpation: normal PMI Heart Sounds: S1 normal, S2 normal and normal, physiologic split S2 Bruits: no carotid bruits Pulses: brachial pulses present and radial pulses present GI Inspection: normal to inspection Palpation: soft and no hepatosplenomegaly Percussion: normal to percussion Auscultation: normal bowel sounds Back/Spine/Pelvis Back: No CVA tenderness Cervical Spine: normal cervical lordosis Thoracic/Lumbar Spine: thoracic and lumbar spine normal to inspection Skin General: no rashes or lesions noted, No excoriations, No induration, No jaundice, No mottling and No petechiae Lesions: no lesions (no worrisome/abl lesions) Rashes: no rashes Trauma: no lacerations or abrasions Wounds: no wounds Hair: normal Neuro General: alert, awake, oriented x3, tone normal and normal light touch, pain and propioception Cranial Nerves: CN's II-XI intact bilaterally Cognition: normal cognition Speech: speech normal Motor: muscle tone normal throughout Sensory Exam: no sensory deficits noted DTR's: Rt Biceps: 2+, Lt Biceps: 2+, Rt Brachioradialis: 2+, Lt Brachioradialis: 2+, Rt Patellar: 2+ and Lt Patellar: 2+ Extrem General: normal to inspection, no clubbing, cyanosis or edema and No calf tenderness Right upper extremity: normal to inspection Left upper extremity: normal to inspection Right lower extremity: normal to inspection Left lower extremity: normal to inspection Psych Appearance: grossly normal Mental Status: mental status grossly normal Speech and Movement: speech and movement normal and speech clear Mood: congruent mood Affect: normal affect Attitude: cooperative Thought Process: normal Thought Content: normal Judgment: judgment good Objective Labs Result Diagrams: 01/04/19 10:50 01/04/19 10:50 Labs: Laboratory Results - last 24 hr 01/04/19 01/04/19 01/04/19 10:50 10:50 10:50 WBC 5.6 RBC 2.57 L Hgb 8.5 L Hct 26.0 L MCV 101.0 H MCH 32.9 MCHC 32.6 RDW 13.4 Plt Count 178 Neut % (Auto) 79.0 H Lymph % (Auto) 9.9 L Jasper % (Auto) 8.4 Eos % (Auto) 1.8 L Baso % (Auto) 0.9 Neut # (Auto) 4400 Lymph # (Auto) 600 L Jasper # (Auto) 500 Eos # (Auto) 100 Baso # (Auto) 0 PT 12.3 INR 1.1 APTT 30 ABG pH ABG pCO2 ABG pO2 ABG HCO3 ABG Total CO2 ABG O2 Saturation ABG Base Excess FiO2 Sodium 144 Potassium 4.7 Chloride 96 L Carbon Dioxide 42 H* BUN 60 H Creatinine 1.50 H Estimated GFR 45.4 L BUN/Creatinine Ratio 40.0 H Glucose 109 Lactate Calcium 10.0 Total Bilirubin 0.5 AST 24 ALT 28 Alkaline Phosphatase 52 Troponin I 0.206 H* Total Protein 6.0 L Albumin 3.5 Globulin 2.5 Albumin/Globulin Ratio 1.4 Lipase Influenza A & B (PCR) Blood Type Antibody Screen Crossmatch 01/04/19 01/04/19 01/04/19 10:50 10:50 10:54 WBC RBC Hgb Hct MCV MCH MCHC RDW Plt Count Neut % (Auto) Lymph % (Auto) Jasper % (Auto) Eos % (Auto) Baso % (Auto) Neut # (Auto) Lymph # (Auto) Jasper # (Auto) Eos # (Auto) Baso # (Auto) PT INR APTT ABG pH ABG pCO2 ABG pO2 ABG HCO3 ABG Total CO2 ABG O2 Saturation ABG Base Excess FiO2 Sodium Potassium Chloride Carbon Dioxide BUN Creatinine Estimated GFR BUN/Creatinine Ratio Glucose Lactate 0.6 L Calcium Total Bilirubin AST ALT Alkaline Phosphatase Troponin I Total Protein Albumin Globulin Albumin/Globulin Ratio Lipase 44 Influenza A & B (PCR) Blood Type A Positive Antibody Screen Negative Crossmatch See Detail 01/04/19 01/04/19 13:12 13:15 WBC RBC Hgb Hct MCV MCH MCHC RDW Plt Count Neut % (Auto) Lymph % (Auto) Jasper % (Auto) Eos % (Auto) Baso % (Auto) Neut # (Auto) Lymph # (Auto) Jasper # (Auto) Eos # (Auto) Baso # (Auto) PT INR APTT ABG pH 7.28 L* ABG pCO2 76.7 H* ABG pO2 92 ABG HCO3 36 H ABG Total CO2 39 H ABG O2 Saturation 95 ABG Base Excess 10.0 H FiO2 28 Sodium Potassium Chloride Carbon Dioxide BUN Creatinine Estimated GFR BUN/Creatinine Ratio Glucose Lactate Calcium Total Bilirubin AST ALT Alkaline Phosphatase Troponin I Total Protein Albumin Globulin Albumin/Globulin Ratio Lipase Influenza A & B (PCR) Negative Blood Type Antibody Screen Crossmatch Assessment & Plan Assessment & Plan narrative: 1. Elevated troponin-likely demand ischemia or type 2 myocardial infarction based on his probable prolonged hypoxia as well as his anemia. Will continue to follow numbers over time but he would not be a very good candidate for invasive procedures such as cardiac catheterization etc. apparently this was considered by Cardiology in [place] but in the end they did not do that. 2. Anemia-no clear etiology for this at this point. Uncertain whether this is an acute blood loss anemia or related some other factor such as nutritional deficiency delusional factors etc. Continue to follow for evidence of GI bleed. Continue with proton pump inhibitor for now. Patient was also started on oral anticoagulation for his chronic atrial fibrillation during his recent hospitalization. I had discontinued that over concerns of falls at home which he had sustained multiple times. I chose not to discontinue that when I saw him in the clinic last week thinking he would likely end up an alternate living f acility but at the current time we need to discontinue his anticoagulation. 2 units of packed red cells have been started in the emergency department and should improve his overall cardiac status as well as his anemia. 3. Chronic severe left ventricular dysfunction/congestive heart failure-patient will clearly need Lasix with his transfusion and IV fluid should be limited as much as possible 4. COPD-patient has very, very, very severe end-stage COPD. He has an oxygen requirement at baseline. He presents with evidence of an acute hypercapnic respiratory failure due to his COPD. He will be placed on BiPAP for now to improve his respiratory status. His ABG suggested element of respiratory acidosis which is probably causing some of his cognitive dysfunction, not surprisingly. Patient has been very clear in the past that he would not want to have heroic interventions such as intubation done and that will not be on the list of options for him. I am not planning to repeat ABG to document improvement but go by clinical course based on his hypoxia and mental status. If need be we can certainly repeat blood gases. Patient has proven to be a carbon dioxide retainer in the past. 5. Cognitive dysfunction-patient more likely than not with an element of acute cognitive dysfunction based on his respiratory acidosis but also some element of chronic dysfunction likely on the basis of his chronic hypoxia. When seen in the clinic last week his oxygen levels had been maintained normal in yet he was still confused disoriented had difficulty remembering medications or details about his hospitalization and recent stay in prison etc. his my opinion he has an element of dementia (likely multifactorial) and is not safe to be living independently at this time. 6. Atrial fibrillation, chronic-continue usual meds including his carvedilol. He will remain off anticoagulation as above because of his acute anemia. 7. Hypothyroidism-continue patient's usual med 8. Anxiety-patient with lorazepam as needed as well as clonazepam daily. This is been recently decreased from 1 mg twice daily to 0.5 mg twice daily. I will continue with the 0.5 mg dose for now which should be having minimal effect on his cognitive function. I would avoid using lorazepam if at all possible the patient clearly is on some level dependent on it. 9. VTE prophylaxis-Given patient's anemia as above is not a candidate for any anticoagulant. This will include low-dose Lovenox for prophylaxis. 10. Code status-patient has previously expressed wishes for no code do not intubate no heroic measures and he will be made a do not resuscitate for the purposes of this hospitalization 11. Disposition-patient should not likely return home to independent living. He would be far better in a facility where medications and clinical status to be monitored on on 24/7 basis. I will ask discharge planning staff to consult as well. 12. Question GI-patient with reported diarrhea. This was verified by caregiver. Will continue monitor for evidence of infectious diarrhea or diarrhea as a whole. Did not sound like this was a blood loss or melanotic type of diarrhea. Thus far we have seen no evidence of any GI disturbance clinically here in the hospital. Overall patient clearly deserves inpatient hospitalization given his degree illness as above. He will clearly require more than 48 hours in the hospital including 2 separate midnights. He will initially be admitted to the ICU because of his need for BiPAP
--- NOTE | 2019-01-04 16:11 | PC.NURSE ---
Addendum entered by Zehra Villalba R.N. 01/04/19 21:45: 2130 - Bi-pap removed. PRBC infusion complete. Able to take po meds without difficulty. Continues to have difficulty with completing a thought. Educated to meds, Lasix given as ordered. Urinal in reach, Call light in reach. Bed alarm on. Original Note: Addendum entered by Zehra Villalba R.N. 01/04/19 17:17: 1700 - Pt unable to tolerate bi-pap mask any longer. Mask removed, placed on 3L, sats 100%, titrated down to 2L. Dr. Samayoa in room. Goal O2 sat 90%, 1 unit PRBC infusing nearly complete. Pt continues to be slightly confused. Dr. Samayoa reinforced treatment plan. Call light in reach. Original Note: 1600 - Pt pulling at bi-pap mask. Mask removed, pt c/o mask being to warm, condensation removed from mask. Heater turned off. RT notified. Pt oriented to self, reoriented to place and situation. Reinforced treatment plan. Bed alarm on. 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 Denies chest pain, PRBC infusing. Temp 99.8. Scattered bruising to bilateral UE, pt denies hx of falls. Caregiver assist with some admission information, only being working with pt since Thursday. Reports independent movement without a cane or walker and that caregivers primary role is to assist with meals and encourage po intake.
[2019-01-04 17:20] LABS: Adenovirus Not Detected (Not Detect); Bordetella pertussis Not Detected (Not Detect); Chlamydophila pneumoniae Not Detected (Not Detect); Coronavirus 229E Not Detected (Not Detect); Coronavirus HKU1 Not Detected (Not Detect); Coronavirus NL 63 Not Detected (Not Detect); Coronavirus OC43 Not Detected (Not Detect); Human Metapneumovirus Not Detected (Not Detect); Human Rhinovirus/Enterovirus Not Detected (Not Detect); Influenza A Not Detected (Not Detect); Influenza B Not Detected (Not Detect); Mycoplasma pneumoniae Not Detected (Not Detect); Parainfluenza Virus 1 Not Detected (Not Detect); Parainfluenza Virus 2 Not Detected (Not Detect); Parainfluenza Virus 3 Not Detected (Not Detect); Parainfluenza Virus 4 Not Detected (Not Detect); Respiratory Syncytial Virus Not Detected (Not Detect)
--- NOTE | 2019-01-04 17:26 | ED_ITS ---
HPI - Fever <Leonel Samayoa MD - Last Filed: 01/04/19 17:26> General Chief Complaint: Fever Stated Complaint: Fever / Confused Time Seen by Provider: 01/04/19 10:53 Related Data Home Medications Medication Instructions Recorded Confirmed polyethylene glycol 3350 [Miralax] 17 gm PO QDAY PRN #0 10/20/17 01/04/19 albuterol sulfate HFA 90 2 puff INHALATION Q4-6H PRN 02/03/18 01/04/19 mcg/actuation aerosol inhaler Disabled Parking Permit 1 ea MISCELLANEOUS DIRECTED 10/15/18 01/04/19 bupropion HCl [Wellbutrin XL] 150 mg PO BEDTIME 10/15/18 01/04/19 lorazepam [Ativan] 1 mg PO DAILY PRN 10/15/18 01/04/19 multivitamin 1 tab PO DAILY 10/15/18 01/04/19 apixaban 2.5 mg tablet 2.5 mg PO BID 12/31/18 01/04/19 carvedilol 6.25 mg tablet 6.25 mg PO BID 12/31/18 01/04/19 enalapril maleate 2.5 mg tablet 7.5 mg PO BID tab 12/31/18 01/04/19 Previous Rx's Medication Instructions Recorded fluticasone propion-salmeterol 1 puff INH BID #1 ea 09/06/18 [Advair Diskus] levothyroxine [Synthroid] 0.075 mg PO QAM #30 tab 09/06/18 tolterodine ER 2 mg 2 mg PO DAILY #90 cap 10/21/18 capsule,extended release 24 hr tiotropium bromide 18 mcg capsule 1 cap INHALATION DAILY #90 caplet 10/25/18 with inhalation device triamcinolone acetonide 0.1 % 1 applictn TOP DAILY #80 gram 10/25/18 topical cream chlorthalidone 25 mg tablet 25 mg PO DAILY #90 tab 11/02/18 calcium carbonate 500 mg calcium 500 mg PO QID #30 tab 12/31/18 (1,250 mg) tablet clonazepam 1 mg tablet 0.5 mg PO BID #180 tab 12/31/18 Allergies Allergy/AdvReac Type Severity Reaction Status Date / Time No Known Drug Allergies Allergy Verified 01/04/19 10:50 <DO David Hill Last Filed: 01/04/19 20:10> General Source: patient, EMS and other (caregiver ([facility]_) Mode of arrival: EMS Limitations: altered mental status (memory issues, chronic) History of Present Illness HPI Narrative: This is a 78-year-old male was transported via EMS. EMS stated that he had a fever with them but here at the hospital he does not have 1. Patient was at home with his caregiver. He was found on the floor with diarrhea. He had taken off his oxygen to try to get to the bathroom. Caregiver states that they cleaned him up, put him back into bed. He had 1 or 2 other episodes of diarrhea. They stated that he has memory issues he is worse than he typically is but his memory sort of waxes and wanes. At this time he is sorted still quite confused. Patient has not had any other complaints recently. He went out to dinner with his caregiver yesterday had a large crab dinner was not having any other issues in the evening. He arrives today with no other complaints currently. Patient himself can tell me his name he knows he is at a hospital but does not answer which hospital or what town. He seems to be searching for the answer. He is not able to give me his past medical history. When I ask if he has any headaches, chest pain, shortness of breath, she feels nauseated or has had any recent vomiting he denies. He is denying any issues with urination. He does not have any sensation that he is going to have diarrhea at this time. <Karolina Johnson DO - Last Filed: 01/04/19 20:10> Review of Systems ROS Unobtainable: All systems reviewed & are unremarkable except as noted in HPI and below (Patient does have memory issue) Constitutional Denies chills, Denies fever(s) (Fever only with EMS, not per caregiver), Denies headache(s), Denies lethargy and Denies weakness ENT Ears, Nose, Mouth, and Throat: Denies headache(s) and Denies nasal congestion Cardiovascular Denies chest pain, Denies chest pain at rest, Denies diaphoresis, Denies syncope, Denies edema, Denies irregular heart rhythm, Denies leg edema, Denies lightheadedness, Denies palpitations, Denies dyspnea, Denies dyspnea on exertion and Denies orthopnea Respiratory Denies change in phlegm color, Denies chest congestion, Denies cough, Denies dyspnea, Denies dyspnea on exertion, Denies stridor and Denies wheezing Gastrointestinal Gastrointestinal: Denies abdominal pain, Denies change in bowel habits, Denies diarrhea, Denies nausea and Denies vomiting Genitourinary Denies hematuria, Denies flank pain, Denies urinary hesitancy and Denies urinary urgency Musculoskeletal Denies back pain, Denies numbness and Denies tingling Integumentary/Breasts Denies rash and Denies sores Neurologic Reports as per HPI, Reports confusion, Denies syncope, Denies headache(s), Reports memory loss (chronic), Denies numbness, Denies tingling and Denies weakness Psychiatric Reports confusion and Reports memory loss (chronic) Endocrine Denies palpitations Allergic/Immunologic Denies wheezing PFSH <Leonel Samayoa MD - Last Filed: 01/04/19 17:26> Medical History Chronic renal failure, stage 2 (mild) (Chronic) Cardiomyopathy (Chronic) Chronic obstructive pulmonary disease (Chronic 04/17/11) Atrial fibrillation (Chronic 04/17/11) Hypertension (Chronic 04/17/11) Acquired hypothyroidism (Chronic 12/20/12) Malignant neoplasm of prostate (Chronic 07/28/17) Anxiety (Chronic 11/24/13) Osteoarthritis (Chronic 04/17/11) Insomnia (Chronic 09/26/14) History of adenomatous polyp of colon (Chronic) Chicken pox (Resolved ~194) Closed left hip fracture (Resolved) Fracture (Resolved) Elevated PSA (Inactive ~2003) Surgical History History of bowel resection (Inactive) History of cataract removal with insertion of prosthetic lens (Inactive ~2008) History of cataract removal with insertion of prosthetic lens (Inactive ~2011) History of hip replacement (Inactive) History of prostatectomy (Inactive ~2003) Family History Mother Diabetes mellitus Father No problems noted. Grandfather No problems noted. Grandmother No problems noted. Grandfather No problems noted. Grandmother No problems noted. Sister No problems noted. Social History household members: caregiver Smoking Status: Former smoker Family History Mother Diabetes mellitus Father No problems noted. Grandfather No problems noted. Grandmother No problems noted. Grandfather No problems noted. Grandmother No problems noted. Sister No problems noted. Social History household members: caregiver Smoking Status: Former smoker Exam <Leonel Samayoa MD - Last Filed: 01/04/19 17:26> Initial Vital Signs Initial Vital Signs: Vital Signs Temperature 98.1 F 01/04/19 10:50 Pulse Rate 79 01/04/19 10:50 Respiratory Rate 16 01/04/19 10:50 Blood Pressure 132/51 L 01/04/19 10:50 Pulse Oximetry 95 01/04/19 10:50 <Karolina Johnson DO - Last Filed: 01/04/19 20:10> Narrative Exam Narrative: GEN: well nourished, well appearing elderly male, alert and oriented x time is 1, patient appears to be no acute distress. patient is calm and cooperative. HEENT: Atraumatic, pupils are equal round reactive to light, extraocular movements are intact, nares are clear, TMs are clear with no fluid, there is no conjunctival pallor. Throat is clear without any exudates, erythema, tonsillar enlargement or uvular deviation, no facial droop, no dysarthria HEART: Regular rate and rhythm without murmur, clicks, rubs. LUNGS:Lungs clear to auscultation, no wheezes, rales, crackles, chest moves symmetrically, no tachypnea or accessory muscle use. ABD:bowel sounds normal, soft, non-tender, no guarding, rebound, rigidity, no masses noted, no hepatosplenomegaly, MARVA shows no mass, patient has some brown stool with negative stool occult. There is no bright red blood or black tarry stool. :No CVA tenderness MSCL: Non-tender, no muscle atrophy, muscles strength 5/5 upper and lower ex tremities, full range of motion, gait not tested NEURO:CN 2-12 intact, sensation normal Initial Vital Signs Initial Vital Signs: Vital Signs Temperature 98.1 F 01/04/19 10:50 Pulse Rate 79 01/04/19 10:50 Respiratory Rate 16 01/04/19 10:50 Blood Pressure 132/51 L 01/04/19 10:50 Pulse Oximetry 95 01/04/19 10:50 <Karolina Johnson DO - Last Filed: 01/04/19 20:10> GCS [place] coma scale eye opening: Spontaneous Stacey coma scale verbal response: Confused Stacey coma scale motor response: Obey commands Stacey coma scale total score: 14 Course <Leonel Samayoa MD - Last Filed: 01/04/19 17:26> Orders Ordered: ED Orders 01/04/19 10:53 XR acute abdomen series Stat EKG-12 Lead Stat 01/04/19 10:54 Lactate (Lactic Acid) Stat 01/04/19 11:11 CT head/brain wo con Stat 01/04/19 11:45 Blood Culture Stat 01/04/19 13:12 Arterial Blood Gas Stat 01/04/19 13:15 Influenza A and B by PCR Rapid Stat 01/04/19 14:25 MRSA PCR Stat Respiratory Panel (Film Array) Stat 01/04/19 14:29 BiPAP Ventilatory Support RT PROTOCOL 01/04/19 16:10 Consult to Dietitian, Adult Routine 01/04/19 19:00 Troponin I Q8H 01/05/19 05:00 Basic Metabolic Panel Routine Complete Blood Count AUTO DIFF Routine Bupropion HCl (Wellbutrin Xl) 150 mg PO BEDTIME DOREEN Carvedilol (Coreg) 6.25 mg PO BID DOREEN Clonazepam (Klonopin) 0.5 mg PO BID DOREEN Enalapril Maleate (Vasotec) 7.5 mg PO BID DOREEN Levothyroxine Sodium (Synthroid) 75 mcg PO 0600 DOREEN Lorazepam (Ativan) 0.5 mg PO Q4HR PRN PRN Reason: Anxiety Morphine Sulfate (Morphine) 2 mg IV Q5MIN PRN PRN Reason: Chest Pain Nitroglycerin (Nitrostat) 0.4 mg SL [id number] PRN PRN Reason: Chest Pain Pantoprazole Sodium (Protonix) 40 mg IV DAILY [facility] Fluticasone/Salmeterol (Advair 500/50 Diskus) 1 puff INH BID [facility] Tiotropium [place] (Spiriva) 18 mcg INH DAILY DOREEN Tolterodine Tartrate (Detrol La) 2 mg PO DAILY DOREEN Discontinued Medications Aspirin (Aspirin Chew) 324 mg PO NOW ONE Stop: 01/04/19 12:16 Last Admin: 01/04/19 13:02 Dose: 324 mg Furosemide (Lasix) 40 mg IV NOW ONE Stop: 01/04/19 12:45 Sodium Chloride (Normal Saline 0.9%) 1,000 mls @ 1,000 mls/hr IV BOLUS ONE Stop: 01/04/19 11:52 Last Admin: 01/04/19 11:37 Dose: Not Given Pantoprazole Sodium 80 mg/ (Sodium Chloride) 100 mls @ 200 mls/hr IV NOW ONE Stop: 01/04/19 12:18 Last Infusion: 01/04/19 13:35 Dose: 0 mls/hr Admin: 01/04/19 13:02 Dose: 200 mls/hr Vital Signs - 8 hr 01/04/19 12:00 01/04/19 12:11 01/04/19 12:30 Temperature 98.1 F Pulse Rate 74 74 73 Respiratory Rate 16 16 19 Blood Pressure 132/51 L Blood Pressure [Right Arm] 135/58 L 129/64 Pulse Oximetry 95 95 100 01/04/19 13:00 01/04/19 13:30 01/04/19 14:00 Temperature Pulse Rate 89 70 69 Respiratory Rate 20 15 14 Blood Pressure Blood Pressure [Right Arm] 121/54 L 130/49 L 125/58 L Pulse Oximetry 98 100 96 01/04/19 14:29 01/04/19 14:57 01/04/19 15:07 Temperature 99.2 F 99.2 F Pulse Rate 76 76 Respiratory Rate 20 20 Blood Pressure 120/58 L 120/58 L 120/58 L Blood Pressure [Right Arm] Pulse Oximetry 97 01/04/19 15:17 01/04/19 15:21 01/04/19 18:11 Temperature 99.8 F H 99.8 F H 99.7 F H Pulse Rate 74 74 81 Respiratory Rate 18 18 19 Blood Pressure 109/52 L 109/52 L 129/80 Blood Pressure [Right Arm] Pulse Oximetry 01/04/19 18:13 Temperature 99.7 F H Pulse Rate 81 Respiratory Rate 19 Blood Pressure 129/80 Blood Pressure [Right Arm] Pulse Oximetry <Karolina Johnson DO - Last Filed: 01/04/19 20:10> Orders Ordered: ED Orders 01/04/19 10:53 XR acute abdomen series Stat EKG-12 Lead Stat 01/04/19 10:54 Lactate (Lactic Acid) Stat 01/04/19 11:11 CT head/brain wo con Stat 01/04/19 11:45 Blood Culture Stat 01/04/19 13:12 Arterial Blood Gas Stat 01/04/19 13:15 Influenza A and B by PCR Rapid Stat 01/04/19 14:25 MRSA PCR Stat Respiratory Panel (Film Array) Stat 01/04/19 14:29 BiPAP Ventilatory Support RT PROTOCOL 01/04/19 16:10 Consult to Dietitian, Adult Routine 01/04/19 19:00 Troponin I Q8H 01/05/19 05:00 Basic Metabolic Panel Routine Complete Blood Count AUTO DIFF Routine Bupropion HCl (Wellbutrin Xl) 150 mg PO BEDTIME DOREEN Carvedilol (Coreg) 6.25 mg PO BID DOREEN Clonazepam (Klonopin) 0.5 mg PO BID DOREEN Enalapril Maleate (Vasotec) 7.5 mg PO BID DOREEN Levothyroxine Sodium (Synthroid) 75 mcg PO 0600 DOREEN Lorazepam (Ativan) 0.5 mg PO Q4HR PRN PRN Reason: Anxiety Morphine Sulfate (Morphine) 2 mg IV Q5MIN PRN PRN Reason: Chest Pain Nitroglycerin (Nitrostat) 0.4 mg SL [id number] PRN PRN Reason: Chest Pain Pantoprazole Sodium (Protonix) 40 mg IV DAILY [facility] Fluticasone/Salmeterol (Advair 500/50 Diskus) 1 puff INH BID [facility] Tiotropium [place] (Spiriva) 18 mcg INH DAILY [facility] Tolterodine Tartrate (Detrol La) 2 mg PO DAILY DOREEN Discontinued Medications Aspirin (Aspirin Chew) 324 mg PO NOW ONE Stop: 01/04/19 12:16 Last Admin: 01/04/19 13:02 Dose: 324 mg Furosemide (Lasix) 40 mg IV NOW ONE Stop: 01/04/19 12:45 Sodium Chloride (Normal Saline 0.9%) 1,000 mls @ 1,000 mls/hr IV BOLUS ONE Stop: 01/04/19 11:52 Last Admin: 01/04/19 11:37 Dose: Not Given Pantoprazole Sodium 80 mg/ (Sodium Chloride) 100 mls @ 200 mls/hr IV NOW ONE Stop: 01/04/19 12:18 Last Infusion: 01/04/19 13:35 Dose: 0 mls/hr Admin: 01/04/19 13:02 Dose: 200 mls/hr Vital Signs - 8 hr 01/04/19 12:00 01/04/19 12:11 01/04/19 12:30 Temperature 98.1 F Pulse Rate 74 74 73 Respiratory Rate 16 16 19 Blood Pressure 132/51 L Blood Pressure [Right Arm] 135/58 L 129/64 Pulse Oximetry 95 95 100 01/04/19 13:00 01/04/19 13:30 01/04/19 14:00 Temperature Pulse Rate 89 70 69 Respiratory Rate 20 15 14 Blood Pressure Blood Pressure [Right Arm] 121/54 L 130/49 L 125/58 L Pulse Oximetry 98 100 96 01/04/19 14:29 01/04/19 14:57 01/04/19 15:07 Temperature 99.2 F 99.2 F Pulse Rate 76 76 Respiratory Rate 20 20 Blood Pressure 120/58 L 120/58 L 120/58 L Blood Pressure [Right Arm] Pulse Oximetry 97 01/04/19 15:17 01/04/19 15:21 01/04/19 18:11 Temperature 99.8 F H 99.8 F H 99.7 F H Pulse Rate 74 74 81 Respiratory Rate 18 18 19 Blood Pressure 109/52 L 109/52 L 129/80 Blood Pressure [Right Arm] Pulse Oximetry 01/04/19 18:13 Temperature 99.7 F H Pulse Rate 81 Respiratory Rate 19 Blood Pressure 129/80 Blood Pressure [Right Arm] Pulse Oximetry MDM - Fever <Leonel Samayoa MD - Last Filed: 01/04/19 17:26> Lab Data Result diagrams: 01/04/19 10:50 01/04/19 10:50 Lab Results 01/04/19 01/04/19 01/04/19 Range/Units 10:50 10:50 10:50 WBC 5.6 (4.5-11.0) X10^3/uL RBC 2.57 L (4.5-5.9) X10^6/uL Hgb 8.5 L (13.5-17.5) g/dL Hct 26.0 L (41-53) % MCV 101.0 H (80-100) fL MCH 32.9 (26-34) PG MCHC 32.6 (30-36) % RDW 13.4 (11.6-14.8) % Plt Count 178 (150-400) X10^3/uL Neut % (Auto) 79.0 H (50-75) % Lymph % (Auto) 9.9 L (25-40) % Hardy % (Auto) 8.4 (3-14) % Eos % (Auto) 1.8 L (2-4) % Baso % (Auto) 0.9 (0-2) % Neut # (Auto) 4400 (6869-2597) /uL Lymph # (Auto) 600 L (6371-4404) /uL Hardy # (Auto) 500 (0-900) /uL Eos # (Auto) 100 (0-450) /uL Baso # (Auto) 0 (0-100) /uL PT 12.3 (10.1-12.7) SECONDS INR 1.1 (0.9-1.3) APTT 30 (26.4-36.2) SECONDS ABG pH (7.35-7.45) ABG pCO2 (35-45) mmHg ABG pO2 (80-100) mmHg ABG HCO3 (22-26) mmol/L ABG Total CO2 (21-31) mmol/L ABG O2 Saturation (95-100) % ABG Base Excess (-2-2) mmol/L FiO2 Sodium 144 (137-145) mmol/L Potassium 4.7 (3.4-5.1) mmol/L Chloride 96 L (98-107) mmol/L Carbon Dioxide 42 H* (22-32) mmol/L BUN 60 H (9-20) mg/dL Creatinine 1.50 H (0.66-1.25) mg/dL Estimated GFR 45.4 L (>60) mL/min BUN/Creatinine Ratio 40.0 H (6-22) Glucose 109 (80-110) mg/dL Lactate (0.7-2.1) mmol/L Calcium 10.0 (8.4-10.2) mg/dL Total Bilirubin 0.5 (0.2-1.3) mg/dL AST 24 (17-59) IU/L ALT 28 (21-72) IU/L Alkaline Phosphatase 52 (38-126) U/L Troponin I 0.206 H* (0.01-0.034) ng/mL Total Protein 6.0 L (6.3-8.2) g/dL Albumin 3.5 (3.5-5.0) g/dL Globulin 2.5 (1.7-4.1) g/dL Albumin/Globulin Ratio 1.4 (1.0-2.8) Lipase (23-300) U/L Nasal Screen MRSA (PCR) (Negative) Chlamy pneumoniae PCR (Not Detect) Adenovirus (PCR) (Not Detect) B.parapertussis DNA PCR (Not Detect) Coronavirus OC43 (PCR) (Not Detect) Coronavirus HKU1 (PCR) (Not Detect) Coronavirus 229E (PCR) (Not Detect) Coronavirus NL63 (PCR) (Not Detect) Human Metapneumovir PCR (Not Detect) Influenza Type A (PCR) (Not Detect) Influenza Type B (PCR) (Not Detect) Influenza A & B (PCR) (Negative) M. pneumoniae (PCR) (Not Detect) Parainfluenza 1 (PCR) (Not Detect) Parainfluenza 2 (PCR) (Not Detect) Parainfluenza 3 (PCR) (Not Detect) Parainfluenza 4 (PCR) (Not Detect) RSV (PCR) (Not Detect) Entero/Rhino (PCR) (Not Detect) Blood Type Antibody Screen Crossmatch 01/04/19 01/04/19 01/04/19 Range/Units 10:50 10:50 10:54 WBC (4.5-11.0) X10^3/uL RBC (4.5-5.9) X10^6/uL Hgb (13.5-17.5) g/dL Hct (41-53) % MCV (80-100) fL MCH (26-34) PG MCHC (30-36) % RDW (11.6-14.8) % Plt Count (150-400) X10^3/uL Neut % (Auto) (50-75) % Lymph % (Auto) (25-40) % Hardy % (Auto) (3-14) % Eos % (Auto) (2-4) % Baso % (Auto) (0-2) % Neut # (Auto) (1832-3293) /uL Lymph # (Auto) (6111-9858) /uL Hardy # (Auto) (0-900) /uL Eos # (Auto) (0-450) /uL Baso # (Auto) (0-100) /uL PT (10.1-12.7) SECONDS INR (0.9-1.3) APTT (26.4-36.2) SECONDS ABG pH (7.35-7.45) ABG pCO2 (35-45) mmHg ABG pO2 (80-100) mmHg ABG HCO3 (22-26) mmol/L ABG Total CO2 (21-31) mmol/L ABG O2 Saturation (95-100) % ABG Base Excess (-2-2) mmol/L FiO2 Sodium (137-145) mmol/L Potassium (3.4-5.1) mmol/L Chloride (98-107) mmol/L Carbon Dioxide (22-32) mmol/L BUN (9-20) mg/dL Creatinine (0.66-1.25) mg/dL Estimated GFR (>60) mL/min BUN/Creatinine Ratio (6-22) Glucose (80-110) mg/dL Lactate 0.6 L (0.7-2.1) mmol/L Calcium (8.4-10.2) mg/dL Total Bilirubin (0.2-1.3) mg/dL AST (17-59) IU/L ALT (21-72) IU/L Alkaline Phosphatase (38-126) U/L Troponin I (0.01-0.034) ng/mL Total Protein (6.3-8.2) g/dL Albumin (3.5-5.0) g/dL Globulin (1.7-4.1) g/dL Albumin/Globulin Ratio (1.0-2.8) Lipase 44 (23-300) U/L Nasal Screen MRSA (PCR) (Negative) Chlamy pneumoniae PCR (Not Detect) Adenovirus (PCR) (Not Detect) B.parapertussis DNA PCR (Not Detect) Coronavirus OC43 (PCR) (Not Detect) Coronavirus HKU1 (PCR) (Not Detect) Coronavirus 229E (PCR) (Not Detect) Coronavirus NL63 (PCR) (Not Detect) Human Metapneumovir PCR (Not Detect) Influenza Type A (PCR) (Not Detect) Influenza Type B (PCR) (Not Detect) Influenza A & B (PCR) (Negative) M. pneumoniae (PCR) (Not Detect) Parainfluenza 1 (PCR) (Not Detect) Parainfluenza 2 (PCR) (Not Detect) Parainfluenza 3 (PCR) (Not Detect) Parainfluenza 4 (PCR) (Not Detect) RSV (PCR) (Not Detect) Entero/Rhino (PCR) (Not Detect) Blood Type A Positive Antibody Screen Negative Crossmatch See Detail 01/04/19 01/04/19 01/04/19 Range/Units 13:12 13:15 14:25 WBC (4.5-11.0) X10^3/uL RBC (4.5-5.9) X10^6/uL Hgb (13.5-17.5) g/dL Hct (41-53) % MCV (80-100) fL MCH (26-34) PG MCHC (30-36) % RDW (11.6-14.8) % Plt Count (150-400) X10^3/uL Neut % (Auto) (50-75) % Lymph % (Auto) (25-40) % Hardy % (Auto) (3-14) % Eos % (Auto) (2-4) % Baso % (Auto) (0-2) % Neut # (Auto) (9812-5675) /uL Lymph # (Auto) (1098-2634) /uL Hardy # (Auto) (0-900) /uL Eos # (Auto) (0-450) /uL Baso # (Auto) (0-100) /uL PT (10.1-12.7) SECONDS INR (0.9-1.3) APTT (26.4-36.2) SECONDS ABG pH 7.28 L* (7.35-7.45) ABG pCO2 76.7 H* (35-45) mmHg ABG pO2 92 (80-100) mmHg ABG HCO3 36 H (22-26) mmol/L ABG Total CO2 39 H (21-31) mmol/L ABG O2 Saturation 95 (95-100) % ABG Base Excess 10.0 H (-2-2) mmol/L FiO2 28 Sodium (137-145) mmol/L Potassium (3.4-5.1) mmol/L Chloride (98-107) mmol/L Carbon Dioxide (22-32) mmol/L BUN (9-20) mg/dL Creatinine (0.66-1.25) mg/dL Estimated GFR (>60) mL/min BUN/Creatinine Ratio (6-22) Glucose (80-110) mg/dL Lactate (0.7-2.1) mmol/L Calcium (8.4-10.2) mg/dL Total Bilirubin (0.2-1.3) mg/dL AST (17-59) IU/L ALT (21-72) IU/L Alkaline Phosphatase (38-126) U/L Troponin I (0.01-0.034) ng/mL Total Protein (6.3-8.2) g/dL Albumin (3.5-5.0) g/dL Globulin (1.7-4.1) g/dL Albumin/Globulin Ratio (1.0-2.8) Lipase (23-300) U/L Nasal Screen MRSA (PCR) Negative for mrsa (Negative) Chlamy pneumoniae PCR Not detected (Not Detect) Adenovirus (PCR) Not detected (Not Detect) B.parapertussis DNA PCR Not detected (Not Detect) Coronavirus OC43 (PCR) Not detected (Not Detect) Coronavirus HKU1 (PCR) Not detected (Not Detect) Coronavirus 229E (PCR) Not detected (Not Detect) Coronavirus NL63 (PCR) Not detected (Not Detect) Human Metapneumovir PCR Not detected (Not Detect) Influenza Type A (PCR) Not detected (Not Detect) Influenza Type B (PCR) Not detected (Not Detect) Influenza A & B (PCR) Negative (Negative) M. pneumoniae (PCR) Not detected (Not Detect) Parainfluenza 1 (PCR) Not detected (Not Detect) Parainfluenza 2 (PCR) Not detected (Not Detect) Parainfluenza 3 (PCR) Not detected (Not Detect) Parainfluenza 4 (PCR) Not detected (Not Detect) RSV (PCR) Not detected (Not Detect) Entero/Rhino (PCR) Not detected (Not Detect) Blood Type Antibody Screen Crossmatch Point of Care Testing Stool Occult Blood Negative Urine Dip Bedside Urine Glucose Negative Bedside Urine Bilirubin - Negative Bedside Urine Ketone - Negative Urine Specific [place] 1.030 Bedside Urine Occult Blood - Negative Bedside Urine pH 5.5 Bedside Urine Protein - Negative Bedside Urine Urobilinogen - Negative Bedside Urine Nitrite - Negative Bedside Urine Leukocytes - Negative Esterase <Karolina Johnson, DO - Last Filed: 01/04/19 20:10> Lab Data Attestation: I reviewed the patient's lab results. Lab Results 01/04/19 01/04/19 01/04/19 Range/Units 10:50 10:50 10:50 WBC 5.6 (4.5-11.0) X10^3/uL RBC 2.57 L (4.5-5.9) X10^6/uL Hgb 8.5 L (13.5-17.5) g/dL Hct 26.0 L (41-53) % MCV 101.0 H (80-100) fL MCH 32.9 (26-34) PG MCHC 32.6 (30-36) % RDW 13.4 (11.6-14.8) % Plt Count 178 (150-400) X10^3/uL Neut % (Auto) 79.0 H (50-75) % Lymph % (Auto) 9.9 L (25-40) % Hardy % (Auto) 8.4 (3-14) % Eos % (Auto) 1.8 L (2-4) % Baso % (Auto) 0.9 (0-2) % Neut # (Auto) 4400 (5263-3281) /uL Lymph # (Auto) 600 L (7247-0057) /uL Hardy # (Auto) 500 (0-900) /uL Eos # (Auto) 100 (0-450) /uL Baso # (Auto) 0 (0-100) /uL PT 12.3 (10.1-12.7) SECONDS INR 1.1 (0.9-1.3) APTT 30 (26.4-36.2) SECONDS ABG pH (7.35-7.45) ABG pCO2 (35-45) mmHg ABG pO2 (80-100) mmHg ABG HCO3 (22-26) mmol/L ABG Total CO2 (21-31) mmol/L ABG O2 Saturation (95-100) % ABG Base Excess (-2-2) mmol/L FiO2 Sodium 144 (137-145) mmol/L Potassium 4.7 (3.4-5.1) mmol/L Chloride 96 L (98-107) mmol/L Carbon Dioxide 42 H* (22-32) mmol/L BUN 60 H (9-20) mg/dL Creatinine 1.50 H (0.66-1.25) mg/dL Estimated GFR 45.4 L (>60) mL/min BUN/Creatinine Ratio 40.0 H (6-22) Glucose 109 (80-110) mg/dL Lactate (0.7-2.1) mmol/L Calcium 10.0 (8.4-10.2) mg/dL Total Bilirubin 0.5 (0.2-1.3) mg/dL AST 24 (17-59) IU/L ALT 28 (21-72) IU/L Alkaline Phosphatase 52 (38-126) U/L Troponin I 0.206 H* (0.01-0.034) ng/mL Total Protein 6.0 L (6.3-8.2) g/dL Albumin 3.5 (3.5-5.0) g/dL Globulin 2.5 (1.7-4.1) g/dL Albumin/Globulin Ratio 1.4 (1.0-2.8) Lipase (23-300) U/L Nasal Screen MRSA (PCR) (Negative) Chlamy pneumoniae PCR (Not Detect) Adenovirus (PCR) (Not Detect) B.parapertussis DNA PCR (Not Detect) Coronavirus OC43 (PCR) (Not Detect) Coronavirus HKU1 (PCR) (Not Detect) Coronavirus 229E (PCR) (Not Detect) Coronavirus NL63 (PCR) (Not Detect) Human Metapneumovir PCR (Not Detect) Influenza Type A (PCR) (Not Detect) Influenza Type B (PCR) (Not Detect) Influenza A & B (PCR) (Negative) M. pneumoniae (PCR) (Not Detect) Parainfluenza 1 (PCR) (Not Detect) Parainfluenza 2 (PCR) (Not Detect) Parainfluenza 3 (PCR) (Not Detect) Parainfluenza 4 (PCR) (Not Detect) RSV (PCR) (Not Detect) Entero/Rhino (PCR) (Not Detect) Blood Type Antibody Screen Crossmatch 01/04/19 01/04/19 01/04/19 Range/Units 10:50 10:50 10:54 WBC (4.5-11.0) X10^3/uL RBC (4.5-5.9) X10^6/uL Hgb (13.5-17.5) g/dL Hct (41-53) % MCV (80-100) fL MCH (26-34) PG MCHC (30-36) % RDW (11.6-14.8) % Plt Count (150-400) X10^3/uL Neut % (Auto) (50-75) % Lymph % (Auto) (25-40) % Hardy % (Auto) (3-14) % Eos % (Auto) (2-4) % Baso % (Auto) (0-2) % Neut # (Auto) (3128-4093) /uL Lymph # (Auto) (6360-3090) /uL Hardy # (Auto) (0-900) /uL Eos # (Auto) (0-450) /uL Baso # (Auto) (0-100) /uL PT (10.1-12.7) SECONDS INR (0.9-1.3) APTT (26.4-36.2) SECONDS ABG pH (7.35-7.45) ABG pCO2 (35-45) mmHg ABG pO2 (80-100) mmHg ABG HCO3 (22-26) mmol/L ABG Total CO2 (21-31) mmol/L ABG O2 Saturation (95-100) % ABG Base Excess (-2-2) mmol/L FiO2 Sodium (137-145) mmol/L Potassium (3.4-5.1) mmol/L Chloride (98-107) mmol/L Carbon Dioxide (22-32) mmol/L BUN (9-20) mg/dL Creatinine (0.66-1.25) mg/dL Estimated GFR (>60) mL/min BUN/Creatinine Ratio (6-22) Glucose (80-110) mg/dL Lactate 0.6 L (0.7-2.1) mmol/L Calcium (8.4-10.2) mg/dL Total Bilirubin (0.2-1.3) mg/dL AST (17-59) IU/L ALT (21-72) IU/L Alkaline Phosphatase (38-126) U/L Troponin I (0.01-0.034) ng/mL Total Protein (6.3-8.2) g/dL Albumin (3.5-5.0) g/dL Globulin (1.7-4.1) g/dL Albumin/Globulin Ratio (1.0-2.8) Lipase 44 (23-300) U/L Nasal Screen MRSA (PCR) (Negative) Chlamy pneumoniae PCR (Not Detect) Adenovirus (PCR) (Not Detect) B.parapertussis DNA PCR (Not Detect) Coronavirus OC43 (PCR) (Not Detect) Coronavirus HKU1 (PCR) (Not Detect) Coronavirus 229E (PCR) (Not Detect) Coronavirus NL63 (PCR) (Not Detect) Human Metapneumovir PCR (Not Detect) Influenza Type A (PCR) (Not Detect) Influenza Type B (PCR) (Not Detect) Influenza A & B (PCR) (Negative) M. pneumoniae (PCR) (Not Detect) Parainfluenza 1 (PCR) (Not Detect) Parainfluenza 2 (PCR) (Not Detect) Parainfluenza 3 (PCR) (Not Detect) Parainfluenza 4 (PCR) (Not Detect) RSV (PCR) (Not Detect) Entero/Rhino (PCR) (Not Detect) Blood Type A Positive Antibody Screen Negative Crossmatch See Detail 01/04/19 01/04/19 01/04/19 Range/Units 13:12 13:15 14:25 WBC (4.5-11.0) X10^3/uL RBC (4.5-5.9) X10^6/uL Hgb (13.5-17.5) g/dL Hct (41-53) % MCV (80-100) fL MCH (26-34) PG MCHC (30-36) % RDW (11.6-14.8) % Plt Count (150-400) X10^3/uL Neut % (Auto) (50-75) % Lymph % (Auto) (25-40) % Hardy % (Auto) (3-14) % Eos % (Auto) (2-4) % Baso % (Auto) (0-2) % Neut # (Auto) (0106-7254) /uL Lymph # (Auto) (6694-5658) /uL Hardy # (Auto) (0-900) /uL Eos # (Auto) (0-450) /uL Baso # (Auto) (0-100) /uL PT (10.1-12.7) SECONDS INR (0.9-1.3) APTT (26.4-36.2) SECONDS ABG pH 7.28 L* (7.35-7.45) ABG pCO2 76.7 H* (35-45) mmHg ABG pO2 92 (80-100) mmHg ABG HCO3 36 H (22-26) mmol/L ABG Total CO2 39 H (21-31) mmol/L ABG O2 Saturation 95 (95-100) % ABG Base Excess 10.0 H (-2-2) mmol/L FiO2 28 Sodium (137-145) mmol/L Potassium (3.4-5.1) mmol/L Chloride (98-107) mmol/L Carbon Dioxide (22-32) mmol/L BUN (9-20) mg/dL Creatinine (0.66-1.25) mg/dL Estimated GFR (>60) mL/min BUN/Creatinine Ratio (6-22) Glucose (80-110) mg/dL Lactate (0.7-2.1) mmol/L Calcium (8.4-10.2) mg/dL Total Bilirubin (0.2-1.3) mg/dL AST (17-59) IU/L ALT (21-72) IU/L Alkaline Phosphatase (38-126) U/L Troponin I (0.01-0.034) ng/mL Total Protein (6.3-8.2) g/dL Albumin (3.5-5.0) g/dL Globulin (1.7-4.1) g/dL Albumin/Globulin Ratio (1.0-2.8) Lipase (23-300) U/L Nasal Screen MRSA (PCR) Negative for mrsa (Negative) Chlamy pneumoniae PCR Not detected (Not Detect) Adenovirus (PCR) Not detected (Not Detect) B.parapertussis DNA PCR Not detected (Not Detect) Coronavirus OC43 (PCR) Not detected (Not Detect) Coronavirus HKU1 (PCR) Not detected (Not Detect) Coronavirus 229E (PCR) Not detected (Not Detect) Coronavirus NL63 (PCR) Not detected (Not Detect) Human Metapneumovir PCR Not detected (Not Detect) Influenza Type A (PCR) Not detected (Not Detect) Influenza Type B (PCR) Not detected (Not Detect) Influenza A & B (PCR) Negative (Negative) M. pneumoniae (PCR) Not detected (Not Detect) Parainfluenza 1 (PCR) Not detected (Not Detect) Parainfluenza 2 (PCR) Not detected (Not Detect) Parainfluenza 3 (PCR) Not detected (Not Detect) Parainfluenza 4 (PCR) Not detected (Not Detect) RSV (PCR) Not detected (Not Detect) Entero/Rhino (PCR) Not detected (Not Detect) Blood Type Antibody Screen Crossmatch Point of Care Testing Stool Occult Blood Negative Urine Dip Bedside Urine Glucose Negative Bedside Urine Bilirubin - Negative Bedside Urine Ketone - Negative Urine Specific [place] 1.030 Bedside Urine Occult Blood - Negative Bedside Urine pH 5.5 Bedside Urine Protein - Negative Bedside Urine Urobilinogen - Negative Bedside Urine Nitrite - Negative Bedside Urine Leukocytes - Negative Esterase Imaging Data CT scan - head: Radiologist's impression: Klever Steiner 78 M [address] [place] [address] CT Scan Report Signed Patient: Klever Steiner FMR#: [id number] : [id number]:[id number] Age/Sex: 78 / MDate of Service: 01/04/19 Loc: ED Accession Number: [id number] Procedure: CT head/brain wo con Ordering Provider: Karolina Johnson D.O. PROCEDURE: CT HEAD/BRAIN WO CON INDICATIONS: altered mental status, hx prostate cancer, diarrhea TECHNIQUE: Noncontrast 4.5 mm thick angled axial sections acquired from the foramen magnum to the vertex, with coronal and sagittal reformats. For radiation dose reduction, the following was used: automated exposure control, adjustment of mA and/or kV according to patient size. COMPARISON: None. FINDINGS: Image quality: Excellent. CSF spaces: Basal cisterns are patent. No extra-axial fluid collections. Ventricles are rather prominent with corresponding parenchymal volume loss. Brain: No midline shift. No intracranial masses or hemorrhage. West-white matter interface is normal. Subtle foci of low attenuation within the right basal ganglia may represent Virchow-Bret spaces versus prior lacunar infarctions. Skull and face: Calvarium and visualized facial bones are intact, without suspicious lesions. Sinuses: Visualized sinuses and mastoids are clear. IMPRESSION: 1. No acute intracranial hemorrhage. 2. Mild parenchymal volume loss and probable chronic small vessel ischemic changes. 3. No obvious parenchymal masses. If there is clinical concern for metastatic disease to the brain, a contrast enhanced MRI would be helpful for better charac terization. Dictated by: Gurdeep Forbes M.D. on 01/04/2019 at 10:18 Approved by: Gurdeep Forbes M.D. on 01/04/2019 at 10:20 AAS: Radiologist's impression: Klever Steiner 78 M [address] [place] [address] XRay Report Signed Patient: Klever Steiner FMR#: [id number] : [id number]:[id number] Age/Sex: 78 / MDate of Service: 01/04/19 Loc: ED Accession Number: [id number] Procedure: XR acute abdomen series Ordering Provider: Karolina Johnson D.O. PROCEDURE: XR ACUTE ABDOMEN SERIES INDICATIONS: diarrhea, altered mental status TECHNIQUE: One view chest and two views of the abdomen were acquired. COMPARISON: None. FINDINGS: Surgical changes and devices: Multiple surgical clips are seen within the left upper quadrant and within the pelvis. Postoperative changes related to total left hip arthroplasty are also noted. Chest: The lungs are well aerated no focal consolidation, effusion, or pneumothorax. There may be minimal atelectasis versus scarring within the lateral margins of the bilateral lung bases. The heart is normal in size. Mediastinal silhouette is also within normal limits. There is aortic atherosclerosis. Degenerative changes of the spine are not well characterized. Abdomen: The bowel gas pattern is nonspecific. However, air and stool are seen throughout the colon. Moderate amount of residual stool is identified within the lower colon (pelvic region). No air-filled distended small bowel loops are identified demonstrating air-fluid levels. No definitive evidence of organomegaly is identified. There is no pneumoperitoneum. Degenerative changes of the lumbar spine, sacroiliac joints, and right hip are noted. IMPRESSION: 1. No bowel obstruction. 2. Moderate residual stool within the distal colon may represent constipation. 3. Minimal scarring/atelectasis within the lung bases. No acute cardiopulmonary process is evident. Dictated by: Gurdeep Forbes M.D. on 01/04/2019 at 10:34 Approved by: Gurdeep Forbes M.D. on 01/04/2019 at 10:38 ECG Data Attestation: I personally reviewed and interpreted this ECG as follows: Prior ECG tracings: available for review Interpretation: EKG shows a sinus, sinus arrhythmia. Rate is 71 p.r. 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 Patient has a prior EKG from 10/15/2018 that it appears similar except the T-wave in peers inverted in 2 3 and AVF. Otherwise appears fairly similar MDM Narrative Medical decision making narrative: Patient is unable to really answer questions or make his own decisions at this time. His caregiver has his daughter contact information and she was called. We discussed his pulse form he is DNR/DNI. She is okay with BiPAP but if he pulled off for states he does not want she would honor those wishes. We discussed that his blood count appears decreased at 8 from 10 in the past. She gives verbal consent for blood transfusion, patient's caregiver was in the room for the conversation. His his troponin is elevated in the positive range at 0.206, and with his anemia he would be a candidate for 2 unit packed red blood cells, renal function has improved from 12/31/2018 from 2.2-1.5 today, BUN is slightly elevated. Plan for a dose of Lasix in between units of PRBCs Carbon dioxide is 42 which he has been in that range before. ABG was checked and shows a acidosis at 7.28 with a CO2 of 76 which is not compensated. Bicarb is 36. On FiO2 of 28 with a PaO2 of 92. It is unclear as patient can't really tell me if he has any chest pain he does not appear to be in any respiratory distress but his confusion could be secondary to his hypercapnia. Placed on BiPAP. Patient received aspirin 324 mg although with his decreasing hemoglobin stool occult was done which was negative here in the ER. He has been taking Eliquis which does put him at risk. I spoke with Cardiology through [facility] where he was hospitalized and seen most recently in followup with dull when hole that. They felt that patient did not need acute intervention. He would possibly be a candidate if he continued to have rising troponin but they would just trend out his troponins at this time. They did not feel that he needed to be transferred at this time. I spoke with Dr. Samayoa who accepts, plan for ICU as patient is receiving bipap. <Karolina Johnson, DO - Last Filed: 01/04/19 20:10> Critical Care Time: Yes Total Critical Care Time: 65 Attestation: The high probability of a clinically significant, sudden or life threatening deterioration of the [cardiac, pulm] system(s) required my full and direct atten tion, intervention and personal management. The aggregate critical care time was [65] minutes. This time is in addition to time spent performing reported procedures but includes the following: [x] Data Review and interpretation [x] Patient assessment and monitoring of vital signs [x] Documentation [x] Medication orders and management Discharge Plan Departure Patient Disposition: Admitted As Inpatient Clinical Impression: Anemia, Elevated troponin, Acute hypercapnic respiratory failure Discharge Date/Time: 01/04/19 14:30 Admit Date/Time: 01/04/19 14:10 Admit Provider: Leonel Samayoa
[2019-01-04] MEDS: clonazePAM 0.5 MG TABLET PO (21:14)
[2019-01-04] MEDS: ENALAPRIL 5 MG TABLET 7.5 MG PO (21:14)
[2019-01-04] MEDS: buPROPion XL 150 MG TAB PO (21:15)
[2019-01-04] MEDS: CARVEDILOL 6.25 MG TABLET PO (21:15)
[2019-01-04 21:18] LABS: Troponin I 0.114 ng/mL (0.01-0.034)
[2019-01-04] MEDS: FUROSEMIDE 40 MG/4 ML VIAL IV (21:44)
--- NOTE | 2019-01-04 22:17 | TAR.TRANSNT ---
2150 - At completion of 2nd Unit PRBC infusion, it was noted that the verification documentation at initiation had not saved. The verification process had been completed by two RN's, myself and Estella. The verification process was re-documented by the same.
[2019-01-05] VITALS (13 sets, daily range): BP systolic 108–151; BP diastolic 45–81; PULSE 64–80; RESP 14–22; TEMP 36–37.3; O2SAT 1–100; BMI 19.1
[2019-01-05 05:14] LABS: Add Manual Diff / Slide Review NO; Basophils Absolute Auto 0 /uL (0-100); Basophils Percent Auto 0.4 % (0-2); Eosinophils Absolute Auto 200 /uL (0-450); Eosinophils Percent Auto 4.2 % (2-4); Hematocrit 33.8 % (41-53); Hemoglobin 11.6 g/dL (13.5-17.5); Lymphocytes Absolute Auto 900 /uL (1100-4500); Lymphocytes Percent Auto 17.2 % (25-40); Mean Corpuscular HGB Conc 34.2 % (30-36); Mean Corpuscular Hemoglobin 33.2 PG (26-34); Monocytes Absolute Auto 700 /uL (0-900); Monocytes Percent Auto 12.1 % (3-14); Neutrophils Absolute Auto 3600 /uL (1500-7000); Neutrophils Percent Auto 66.1 % (50-75); Platelet Count 159 X10^3/uL (150-400); Red Blood Cell Count 3.48 X10^6/uL (4.5-5.9); Red Cell Distribution Width 14.5 % (11.6-14.8); White Blood Cell Count 5.4 X10^3/uL (4.5-11.0)
[2019-01-05 05:16] LABS: Blood Urea Nitrogen 51 mg/dL (9-20); Calcium 9.1 mg/dL (8.4-10.2); Chloride 95 mmol/L (98-107); Estimated Glomerular Filt Rate 45.4 mL/min (>60); Glucose 98 mg/dL (80-110); HEMOLYSIS < 15 (0-50); Sodium 141 mmol/L (137-145)
[2019-01-05 05:20] LABS: Mean Corpuscular Volume 97.3 fL (80-100)
[2019-01-05 05:24] LABS: Carbon Dioxide 40 mmol/L (22-32)
--- NOTE | 2019-01-05 06:18 | PC.NURSE ---
Patient oriented to person, place, and situation, not very talkative, has delayed speech, but is cooperative and does follow most directions, bed alarm on, forgetful about using call light. Refused Bi-pap, denies dyspnea, only mild shortness of breath noted during activity, on 1L NC, SpO2 93-100%, RR 18-30s, breath sounds diminished with intermittent coarseness. SA/SA, BBB. Sits at side of bed to use urinal. Denies pain or anxiety.
--- NOTE | 2019-01-05 08:20 | PM.PN.1 ---
Subjective Date Patient Seen: 01/05/19 Time Patient Seen: 08:20 Interval history: Patient looks much better this morning. His mental status seems closer to baseline. It actually seems better than it was when I saw him in the outpatient clinic last week. Still he does not have a lot of recollection of what happened Thursday or during the day Thursday. Was able to tolerate BiPAP for a few hours last evening and then eventually requested it be removed and he has done fine on very low level oxygen since. No GI symptoms no diarrhea no nothing going on there. For I spoke with his daughter who spoke directly with the caregiver who was at his home on Thursday night Thursday and apparently he just became confused she found him in the bathroom without his oxygen on meaning the cannulae had been removed and he was quite confused disoriented. He had apparently defecated into a drawer on the vanity in the bathroom and he was cleaned up and oxygen was returned to him. By the next morning he was still confused disoriented he was calling out for his parents which is something new that had not been seen before. It was at that point that he was brought to the [facility] Emergency Department. Exam Vital Signs (past 8 hours): - 01/05/19 01:00 01/05/19 02:10 01/05/19 04:00 Temperature Pulse Rate 75 75 64 Respiratory Rate 19 18 Blood Pressure 151/81 H 151/81 H 108/45 L Pulse Oximetry 100 100 01/05/19 05:00 01/05/19 06:00 Temperature 96.8 F L Pulse Rate 74 75 Respiratory Rate 21 19 Blood Pressure 137/55 L 130/55 L Pulse Oximetry 100 1 L Fraction of Inspired Oxygen 0.30 Oxygen Delivery Method Nasal Cannula Oxygen Flow Rate 1 Narrative Exam Narrative: Unchanged from previous except for more normalization of mental status Objective Labs Result Diagrams: 01/05/19 04:55 01/05/19 04:55 Labs: Laboratory Results - last 24 hr 01/04/19 01/04/19 01/04/19 10:50 10:50 10:50 WBC 5.6 RBC 2.57 L Hgb 8.5 L Hct 26.0 L MCV 101.0 H MCH 32.9 MCHC 32.6 RDW 13.4 Plt Count 178 Neut % (Auto) 79.0 H Lymph % (Auto) 9.[address] [place] % (Auto) 8.4 Eos % (Auto) 1.8 L Baso % (Auto) 0.9 Neut # (Auto) 4400 Lymph # (Auto) [address] [place] [place] # (Auto) 500 Eos # (Auto) 100 Baso # (Auto) 0 PT 12.3 INR 1.1 APTT 30 ABG pH ABG pCO2 ABG pO2 ABG HCO3 ABG Total CO2 ABG O2 Saturation ABG Base Excess FiO2 Sodium 144 Potassium 4.7 Chloride 96 L Carbon Dioxide 42 H* BUN 60 H Creatinine 1.50 H Estimated GFR 45.4 L BUN/Creatinine Ratio 40.0 H Glucose 109 Lactate Calcium 10.0 Total Bilirubin 0.5 AST 24 ALT 28 Alkaline Phosphatase 52 Troponin I 0.206 H* Total Protein 6.0 L Albumin 3.5 Globulin 2.5 Albumin/Globulin Ratio 1.4 Lipase Nasal Screen MRSA (PCR) Chlamy pneumoniae PCR Adenovirus (PCR) B.parapertussis DNA PCR Coronavirus OC43 (PCR) Coronavirus HKU1 (PCR) Coronavirus 229E (PCR) Coronavirus NL63 (PCR) Human Metapneumovir PCR Influenza Type A (PCR) Influenza Type B (PCR) Influenza A & B (PCR) M. pneumoniae (PCR) Parainfluenza 1 (PCR) Parainfluenza 2 (PCR) Parainfluenza 3 (PCR) Parainfluenza 4 (PCR) RSV (PCR) Entero/Rhino (PCR) Blood Type Antibody Screen Crossmatch 01/04/19 01/04/19 01/04/19 10:50 10:50 10:54 WBC RBC Hgb Hct MCV MCH MCHC RDW Plt Count Neut % (Auto) Lymph % (Auto) [place] % (Auto) Eos % (Auto) Baso % (Auto) Neut # (Auto) Lymph # (Auto) [place] # (Auto) Eos # (Auto) Baso # (Auto) PT INR APTT ABG pH ABG pCO2 ABG pO2 ABG HCO3 ABG Total CO2 ABG O2 Saturation ABG Base Excess FiO2 Sodium Potassium Chloride Carbon Dioxide BUN Creatinine Estimated GFR BUN/Creatinine Ratio Glucose Lactate 0.6 L Calcium Total Bilirubin AST ALT Alkaline Phosphatase Troponin I Total Protein Albumin Globulin Albumin/Globulin Ratio Lipase 44 Nasal Screen MRSA (PCR) Chlamy pneumoniae PCR Adenovirus (PCR) B.parapertussis DNA PCR Coronavirus OC43 (PCR) Coronavirus HKU1 (PCR) Coronavirus 229E (PCR) Coronavirus NL63 (PCR) Human Metapneumovir PCR Influenza Type A (PCR) Influenza Type B (PCR) Influenza A & B (PCR) M. pneumoniae (PCR) Parainfluenza 1 (PCR) Parainfluenza 2 (PCR) Parainfluenza 3 (PCR) Parainfluenza 4 (PCR) RSV (PCR) Entero/Rhino (PCR) Blood Type A Positive Antibody Screen Negative Crossmatch See Detail 01/04/19 01/04/19 01/04/19 13:12 13:15 14:25 WBC RBC Hgb Hct MCV MCH MCHC RDW Plt Count Neut % (Auto) Lymph % (Auto) [place] % (Auto) Eos % (Auto) Baso % (Auto) Neut # (Auto) Lymph # (Auto) [place] # (Auto) Eos # (Auto) Baso # (Auto) PT INR APTT ABG pH 7.28 L* ABG pCO2 76.7 H* ABG pO2 92 ABG HCO3 36 H ABG Total CO2 39 H ABG O2 Saturation 95 ABG Base Excess 10.0 H FiO2 28 Sodium Potassium Chloride Carbon Dioxide BUN Creatinine Estimated GFR BUN/Creatinine Ratio Glucose Lactate Calcium Total Bilirubin AST ALT Alkaline Phosphatase Troponin I Total Protein Albumin Globulin Albumin/Globulin Ratio Lipase Nasal Screen MRSA (PCR) Negative for mrsa Chlamy pneumoniae PCR Not detected Adenovirus (PCR) Not detected B.parapertussis DNA PCR Not detected Coronavirus OC43 (PCR) Not detected Coronavirus HKU1 (PCR) Not detected Coronavirus 229E (PCR) Not detected Coronavirus NL63 (PCR) Not detected Human Metapneumovir PCR Not detected Influenza Type A (PCR) Not detected Influenza Type B (PCR) Not detected Influenza A & B (PCR) Negative M. pneumoniae (PCR) Not detected Parainfluenza 1 (PCR) Not detected Parainfluenza 2 (PCR) Not detected Parainfluenza 3 (PCR) Not detected Parainfluenza 4 (PCR) Not detected RSV (PCR) Not detected Entero/Rhino (PCR) Not detected Blood Type Antibody Screen Crossmatch 01/04/19 01/05/19 01/05/19 20:10 04:55 04:55 WBC 5.4 RBC 3.48 L Hgb 11.6 L Hct 33.8 L MCV 97.3 D MCH 33.2 MCHC 34.2 RDW 14.5 Plt Count 159 Neut % (Auto) 66.1 Lymph % (Auto) 17.[address] [place] % (Auto) 12.1 Eos % (Auto) 4.2 H Baso % (Auto) 0.4 Neut # (Auto) 3600 Lymph # (Auto) [address] [place] # (Auto) 700 Eos # (Auto) 200 Baso # (Auto) 0 PT INR APTT ABG pH ABG pCO2 ABG pO2 ABG HCO3 ABG Total CO2 ABG O2 Saturation ABG Base Excess FiO2 Sodium 141 Potassium 4.0 Chloride 95 L Carbon Dioxide 40 H* BUN 51 H Creatinine 1.50 H Estimated GFR 45.4 L BUN/Creatinine Ratio 34.0 H Glucose 98 Lactate Calcium 9.1 Total Bilirubin AST ALT Alkaline Phosphatase Troponin I 0.114 H Total Protein Albumin Globulin Albumin/Globulin Ratio Lipase Nasal Screen MRSA (PCR) Chlamy pneumoniae PCR Adenovirus (PCR) B.parapertussis DNA PCR Coronavirus OC43 (PCR) Coronavirus HKU1 (PCR) Coronavirus 229E (PCR) Coronavirus NL63 (PCR) Human Metapneumovir PCR Influenza Type A (PCR) Influenza Type B (PCR) Influenza A & B (PCR) M. pneumoniae (PCR) Parainfluenza 1 (PCR) Parainfluenza 2 (PCR) Parainfluenza 3 (PCR) Parainfluenza 4 (PCR) RSV (PCR) Entero/Rhino (PCR) Blood Type Antibody Screen Crossmatch Assessment & Plan Assessment & Plan narrative: 1.Elevated troponin-this returned to normal and dropped with a 2nd troponin. Again I think demand ischemia, and that been much improved with more appropriate respiratory support and blood transfusion. No active issues there. 2. Anemia-appropriate bump in hemoglobin and hematocrit with transfusion. Continue to monitor for evidence of GI blood loss. Continue with proton pump inhibitor for now. Continue off Eliquis for now as well. 3. Chronic severe left ventricular dysfunction/congestive heart failure-appears to be euvolemic at this time. Lasix was discontinued last week because a bump in creatinine. Continue to monitor for evidence of volume overload 4. COPD-patient has very, very, very severe end-stage COPD. Continue with his inhalers and minimize oxygen as patient has proven to retain CO2. Will see how he does as far as his numbers and stamina with physical therapy and occupational therapy today. 5. Cognitive dysfunction-patient appears more appropriate but I do believe there is some long-term cognitive dysfunction likely multifactorial in origin related to his nutritional deficiencies after of his spouse perhaps some depression after her as well as well as chronic hypoxia related to his lung disease etc. his function today however is much improved admittedly. Continue to monitor carefully and assuming patient will return home (which is his strong preference) will need to ensure we have appropriate systems in place to keep him safe there given this probable cognitive issue. 6. Atrial fibrillation, chronic-continue usual meds including his carvedilol. He will remain off anticoagulation as above because of his acute anemia. 7. Hypothyroidism-continue patient's usual med 8. Anxiety-patient with lorazepam as needed as well as clonazepam daily. This is been recently decreased from 1 mg twice daily to 0.5 mg twice daily. I will continue with the 0.5 mg dose for now which should be having minimal effect on his cognitive function. I would avoid using lorazepam if at all possible the patient clearly is on some level dependent on it. 9. VTE prophylaxis-Given patient's anemia as above is not a candidate for any anticoagulant. This will include low-dose Lovenox for prophylaxis. 10. Code status-patient has previously expressed wishes for no code do not intubate no heroic measures and he will be made a do not resuscitate for the purposes of this hospitalization 11. Disposition-patient's cognitive improvement is surprising to me. He certainly has periods of time where he is much better and therefore going home with 24/7 caregivers is not completely out of the question. Again will ask care management team to evaluate and ensure we have all available resources available for patient in home setting which seems to be his strong preference. 12. Question GI-patient with reported diarrhea. No evidence of active GI issue at this time. Continue to monitor and evaluate should it appear. Note: Greater than 30 minutes was spent evaluating the patient on the floor, including examining the patient, discussing clinical course with clinical and nursing staff, reviewing clinical course in the computer, preparing documentation and writing orders for continued management of care, discussing status with family as appropriate, reviewing plans for the next 24 hours with both patient/family and nursing staff as appropriate. Quality VTE Deep Vein Thrombosis/Pulmonary Embolism Present on Admission: No
[2019-01-05] MEDS: CARVEDILOL 6.25 MG TABLET PO ×2 (08:21→20:02)
[2019-01-05] MEDS: LEVOTHYROXINE 75 MCG TABLET PO (08:21)
[2019-01-05] MEDS: ENALAPRIL 5 MG TABLET 7.5 MG PO ×2 (08:22→20:01)
[2019-01-05] MEDS: TOLTERODINE LA 2 MG CAP PO (08:22)
[2019-01-05] MEDS: PANTOPRAZOLE 40 MG VIAL IV (08:22)
[2019-01-05] MEDS: clonazePAM 0.5 MG TABLET PO ×2 (08:23→20:03)
[2019-01-05] MEDS: SODIUM CHLORIDE 0.9% FLUSH 10 ML IV ×2 (08:23→20:03)
[2019-01-05] MEDS: TIOTROPIUM BROMIDE 18 MCG INHALER INH (10:07)
[2019-01-05] MEDS: FLUTICASONE/SALMETEROL 500/50 14 PUFF DISKUS INH (10:07)
--- NOTE | 2019-01-05 11:05 | OT.IP.EVAL ---
Current Diagnoses Acute respiratory failure with hypercapnia (01/04/19) Past Medical History (Last Reviewed 01/04/19 @ 19:59 by Karolina Johnson DO) Chronic renal failure, stage 2 (mild) (Chronic) Cardiomyopathy (Chronic) Chronic obstructive pulmonary disease (Chronic 04/17/11) Atrial fibrillation (Chronic 04/17/11) Hypertension (Chronic 04/17/11) Acquired hypothyroidism (Chronic 12/20/12) Malignant neoplasm of prostate (Chronic 07/28/17) Anxiety (Chronic 11/24/13) Osteoarthritis (Chronic 04/17/11) Insomnia (Chronic 09/26/14) History of adenomatous polyp of colon (Chronic) Chicken pox (Resolved ~1940) Closed left hip fracture (Resolved) Fracture (Resolved) Elevated PSA (Inactive ~2003) Surgical History (Last Reviewed 01/04/19 @ 19:59 by Karolina Johnson DO) History of bowel resection (Inactive) History of cataract removal with insertion of prosthetic lens (Inactive ~2008) History of cataract removal with insertion of prosthetic lens (Inactive ~2011) History of hip replacement (Inactive) History of prostatectomy (Inactive ~2003) Occupational Therapy Inpatient Evaluation/Re-Eval M1 PT/OT-IP Prior Functional Status Start: 01/05/19 10:51 Freq: NEEDED Status: Active Protocol: Document 01/05/19 11:05 NITIN (Rec: 01/06/19 09:34 NITIN [id number]) Medical Review Prior Functional Status Medical History Reviewed Yes Communication WFL with hx of confusion at home per chart notes Mobility and Gait Pt stated he used 4WW for home mobility. Pt admits to multiple falls recently. Activities of Daily Living and IADL's Pt stated he was independent with ADLs with a 4WW. No family here to confirm. Prior Functional Level (Other details) Per chart notes and discussion with SMALL STOCK FACER, pt had daily caregivers at home, but no details available about number of hours or type of assistance provided. Social History Household Members caregiver Living Arrangements House Number of Floors (Floors) One Floor Number of Stairs To Enter/Railing? 1 step to enter per pt Home Environment High Toilet Walk in Shower Home Equipment Four Wheel Walker Shower Seat with Backrest Hand Held Shower Employment Status Retired Additional Social History Comment No family here to confirm home layout. Per chart notes, pt had recent stay at [facility] for CHF exacerbation with EF 20-25% during that stay. Pt went to SNF after that hospital stay and was only home 1 week when he was readmitted to [facility] after being found down in bathroom by caregiver with severe diarrhea,fever, confusion with O2 off. M2 OT-IP Current Condition Start: 01/06/19 08:38 Freq: Status: Active Protocol: Document 01/05/19 11:05 PJM (Rec: 01/06/19 09:34 [facility] [id number]) Occupational Therapy Current Condition Current Condition Evaluation Date 01/05/19 Treatment Diagnosis decreased cognition, mobility, self care skills; Dx: end stage COPD, anemia Diagnosis Onset Date 01/04/19 Post Operative Precautions Other Precautions fall risk, confusion, monitor O2 sats M3 OT- IP Subjective and Pain Start: 01/06/19 08:38 Freq: Status: Active Protocol: Document 01/05/19 11:05 PJM (Rec: 01/06/19 09:34 [facility] [id number]) OT- Subjective Occupational Therapy Visit Type Type Initial Evaluation Visit Start Time 10:15 Visit Stop Time 11:05 Notes partial co eval with P.T. due to pt's decreased activity tolerance Occupational Therapy Visit Comments Patient/Caregiver Goals Pt unable to verbalize goal due to confusion. OT Pain Assessment Pain When Pain Assessed After Treatment Pain Present Pain Present Denied Pain M4 OT- IP ADL's Start: 01/06/19 08:38 Freq: Status: Active Protocol: Document 01/05/19 11:05 PJM (Rec: 01/06/19 09:34 [facility] [id number]) OT [id number] General Evaluation Self-Feeding Ability Standby Assistance Comments OT Self-Feeding Comments intermittent supervision due to confusion, needs meal tray set up OT ADL-Grooming General Evaluation Grooming Ability Standby Assistance Areas Needing Assistance Face Washing Comments OT Grooming Comments seated in chair after set up OT ADL-Oral Care Comments Oral Care Comments to be assessed OT ADL-Dressing General Eval Lower Body Dressing Ability Minimal Assistance Areas Needing Assistance Underpants/Brief Comments OT Dressing Comments to get brief over feet seated on toilet OT ADL-Toileting General Evaluation Toileting Ability Contact Guard Assistance Areas Needing Assistance Manage Clothing Perform Perineal Hygiene Comments OT Toileting Comments for standing balance with FWW and wall grab bar OT ADL-Bathing Comments OT Bathing Comments to be assessed as activity tolerance improves M5 OT- IP IADL's Start: 01/06/19 08:38 Freq: Status: Active Protocol: Document 01/05/19 11:05 PJM (Rec: 01/06/19 09:34 PJ [id number]) OT-Instrumental Activities of Daily Living Deficits IADL Deficits Identified Deficits Home Safety Awareness Awareness of Need for Assistance at Home Decreased Awareness Ability to Problem Solve Emergency Unable to Problem Solve Situations Medication Management Medication Management Caregiver Administers Medication Management Comments pt needs total assist with medication management at home due to confusion and short term memory deficits; per chart notes, MD suspected pt making medication errors at home Money Management Money Management Caregiver Provides Assistance Money Management Comments pt needs total assist due to cognitive status Meal Preparation Meal Preparation Caregiver Provides Assist Meal Preparation Comments pt needs total assist due to cognitive status due to inability to meal plan and initiate appropriate meal prep to ensure adequate nutrition Oil [employer] Services Dispatcher [employer] Dispatcher Caregiver Provides Assist [employer] Dispatcher Comments pt needs total assist due to decreased activity tolerance Driving Driving Caregiver Provides Assist Driving Comments pt needs total assist due to cognitive status and decreased activity tolerance M6 OT- IP Functional Cognition Start: 01/06/19 08:38 Freq: Status: Active Protocol: Document 01/05/19 11:05 PJM (Rec: 01/06/19 09:34 PJ [id number]) Cognitive Factors Limiting Selfcare Function Cognitive Ability Level of Alertness Confusional State Patient Orientation Name Place Attention Span Ability Capable of Focused Attention Ability to Follow Commands Able to Follow One Step Commands with Increased Time Memory Description Immediate Impaired Short Term Impaired Safety Awareness Decreased Recall of Precautions Decreased Ability to Apply Precautions Underestimates Need for Assistance Problem Solving Ability Unable to Identify Errors Needs Assist to Identify Solutions Executive Function Ability Unable to Filter Distractions Unable to Make Plans Unable to Organize Plans Unable to Remember Details Unable to Integrate Past Experience With Present Action Abstract Thinking Ability Unable to Draw Logical Conclusions Cognitive Tests SLUMS Pt scored 15/30 (Norm is 27/30). Pt had difficulty with immediate, short term and working memory, mental math, and word generation. He is able to place numbers on clock drawing correctly with one self correction. He is unable to even begin to place hands on clock. Pt does recall 3/4 facts about short paragraph read to him, but recalls 0/5 words after 5 min delay. Cognitive Comments Cognitive Assessment Comments Pt has significantly slowed speed of processing and requires increased time to follow one step commands. OT- Vision and Hearing OT- Hearing Assessment OT- Hearing Assessment WFL OT- Vision Assessment Visual Acuity WFL Glasses For Reading Vision Assessment Comments Pt denies any recent vision changes. M7 OT- IP Mobility and Balance Start: 01/06/19 08:38 Freq: Status: Active Protocol: Document 01/05/19 11:05 PJM (Rec: 01/06/19 09:34 PJM [id number]) OT- Bed Mobility Assessment Supine to Sit Supine to Sit Assist Contact Guard Assistance 1 Person Assistance Head of Bed Elevated Scooting Scooting to Edge of Bed Contact Guard Assistance 1 Person Assistance OT-Transfer Assessment Sit to and From Stand Sit to and from Stand Contact Guard Assistance 1 Person Assistance Transfers Transfer Ability Contact Guard Assistance 1 Person Assistance Technique Transfer Destination Chair Toilet Transfer Technique Stand Step Pivot Devices Transfer Assistive Devices Gait Belt Front Wheeled Walker OT- Gait Assessment Gait Gait Assistance Required: Contact Guard Assist Distance (Feet) 20 Assistive Devices Assistive Device Gait Belt Front Wheeled Walker Comments Gait Ability Comments See P.T. notes OT- Balance Assessment Sitting Balance and Reactions Static Sitting Balance Ability Good Dynamic Sitting Balance Ability Fair Standing Balance and Reactions Static Standing Balance Ability Good Dynamic Standing Balance Ability Fair M8 OT- IP Objective Assessments Start: 01/06/19 08:38 Freq: Status: Active Protocol: Document 01/05/19 11:05 PJM (Rec: 01/06/19 09:34 PJ [id number]) OT Gross Range of Motion Upper Extremity Range of Motion Assessment Within Functional Limits OT Strength Upper Extremity Strength Assessment Within Functional Limits Hand Casino Cage Supervisor Strength Hand Dominance Right OT- Coordination Assessment Comments Coordination Comments Slowed gross and fine rapid alternating movements noted. OT-Muscle Tone Assessment Muscle Tone WNL Yes OT Sensation Assessment Comments Summary Comments Pt appears to detect lt touch in BUE and denies sensory deficits Edema Edema Absent M9 OT- IP Assessment and Plan Start: 01/06/19 08:38 Freq: Status: Active Protocol: Document 01/05/19 11:05 PJM (Rec: 01/06/19 09:34 PJM [id number]) OT Summary Assessment and Plan Potential Rehabilitation Potential Fair Analytic Complexity at Evaluation Low Summary OT Impairments Strength Balance Functional Cognition Functional Mobility Grooming Dressing Toileting Bathing Toilet Transfers Shower Transfers Assessment Summary Low complexity OT assessment completed on this 78 yr old man readmitted after only 1 week home from SNF with fever, anemia, diarrhea and increased confusion with diagnosis of end stage COPD. Pt currently has significant performance deficit in activity tolerance, but able to maintain O2 sats in low to mid 90's on 1L O2 this session with frequent rest breaks. Pt has decreased independence in all functional mobility/ transfers, standing grooming, dressing, bathing, and toileting. He also has significant impairments in functional cognition as described above. Pt not safe to return home alone and currently needs 24 hr assist for safety vs SNF at discharge. Per chart notes and discussion with SMALL STOCK FACER, pt may be a hospice candidate. Goals Grooming Goal Standby Assistance Dressing Goal Standby Assistance Toileting Goal Standby Assistance Bathing Goal Minimal Assistance Grab Bars Hand Held Shower Sprayer Toilet Transfer Goal Standby Assistance Shower Transfer Goal Standby Assistance Walk-in Shower Shower Chair Grab Bars Patient/Caregiver Education Goal Caregiver Independent Assisting Patient OT-Other Goals Grooming to be done standing or seated at sink. Pt will maintain O2 sats in 88 -94 range during all self care tasks on 1-2L O2 Days to Meet Goals 3 Frequency of Treatment Frequency Of Treatment Once a Day Treatment Plan OT Treatment Plan ADL Training Functional Mobility Patient/Family Education Discharge Planning Discharge Recommendations OT Discharge Recommendations Home with 24/7 Assist vs SNF Rehab ? hospice
--- NOTE | 2019-01-05 11:17 | PT.IIE ---
Surgical History (Last Reviewed 01/04/19 @ 19:59 by Karolina Johnson DO) History of bowel resection (Inactive) History of cataract removal with insertion of prosthetic lens (Inactive ~2008) History of cataract removal with insertion of prosthetic lens (Inactive ~2011) History of hip replacement (Inactive) History of prostatectomy (Inactive ~2003) Medical History (Last Reviewed 01/04/19 @ 19:59 by Karolina Johnson DO) Chronic renal failure, stage 2 (mild) (Chronic) Cardiomyopathy (Chronic) Chronic obstructive pulmonary disease (Chronic 04/17/11) Atrial fibrillation (Chronic 04/17/11) Hypertension (Chronic 04/17/11) Acquired hypothyroidism (Chronic 12/20/12) Malignant neoplasm of prostate (Chronic 07/28/17) Anxiety (Chronic 11/24/13) Osteoarthritis (Chronic 04/17/11) Insomnia (Chronic 09/26/14) History of adenomatous polyp of colon (Chronic) Chicken pox (Resolved ~1940) Closed left hip fracture (Resolved) Fracture (Resolved) Elevated PSA (Inactive ~2003) Physical Therapy Inpatient Evaluation/Re-Eval M1 PT/OT-IP Prior Functional Status Start: 01/05/19 10:51 Freq: NEEDED Status: Active Protocol: Document 01/05/19 10:15 (Rec: 01/05/19 11:17 [id number]) Medical Review Prior Functional Status Medical History Reviewed Yes Communication SOB. Short sentences. able to make needs known Mobility and Gait Pt stated he used 4WW for home mobility. Pt had multiple falls recently. Activities of Daily Living and IADL's See social hx. Pt claimed he was independent with ADLs with a 4WW. Social History Household Members caregiver Living Arrangements House Number of Floors (Floors) One Floor Number of Stairs To Enter/Railing? 1 KATHIE w/o railing Home Environment Standard Height Toilet Walk in Shower Home Equipment Four Wheel Walker Raised Toilet Seat w/Armrests Shower Seat with Backrest Hand Held [facility] Bed Grab Bars In Shower Employment Status Retired Additional Social History Comment Per H&P, patient presented to the [facility] Emergency Department on the day of admission with complaints of fever of 102+ day prior to admission. He had been found down at home day of admission by his caregivers without his oxygen on and confused disoriented. Patient was admitted to [facility] in [place] recently because of confusion and hypoxia. He was found to have severe left ventricular systolic dysfunction with ejection fraction in the 20-25% range with global hypokinesis. He was discharged to long-term stay there for 2+ weeks. Then was discharged home just last week. He also had become nutritionally challenged over the last several months at home living independently. Per SW, Pt stated he has 24/7 care at home and used 2L O2/min NC at all times but SW believes the CG is not well medically trained to provide sufficient care. M2 PT-IP Current Condition Start: 01/05/19 10:51 Freq: NEEDED Status: Active Protocol: Document 01/05/19 10:15 HH (Rec: 01/05/19 11:17 [id number]) Physical Therapy Current Condition Current Condition Evaluation Date 01/05/19 Treatment Diagnosis Fever/confusion, diarrhea, COPD, impaired gait and activity tolerance Onset Date 01/03/19 Weight Bearing Status Weight Bearing Status Weight Bear as Tolerated M3 PT-IP Subjective Start: 01/05/19 10:51 Freq: NEEDED Status: Active Protocol: Document 01/05/19 10:15 HH (Rec: 01/05/19 11:17 [id number]) Subjective Physical Therapy Visit Type Type Initial Evaluation Visit Start Time 10:15 Visit Stop Time 10:45 Total Visit Minutes 30 Notes Per RN, pt stood up at EOB earlier with 1PA. Co-treat with OT Number of CARBIDE OPERATOR Visits 0 Physical Therapy Visit Comments Patient Comments Pt agreeable to mobilize with PT. Pt seems easily irritated and does not like to use gait belt and AD. Patient Goals To return home with CG assist. Do not like to go SNF Therapy Pain Assessment Pain Present Pain Present Denied Pain M4 PT-IP Mobility and Gait Start: 01/05/19 10:51 Freq: NEEDED Status: Active Protocol: Document 01/05/19 10:15 HH (Rec: 01/05/19 11:17 [id number]) PT-Bed Mobility Assessment Rolling Type of Rolling Roll to Left Level of Assist Standby Assistance Supine to Sit Supine to Sit Standby Assistance Head of Bed Elevated Bedrails Scooting Scooting to Edge of Bed Standby Assistance PT-Transfer Assessment Sit to and From Stand Sit to and from Stand Contact Guard Assistance Use of Upper Extremities Equipment Transfer Assistive Device Gait Belt Front Wheeled Walker Orthotic/Prosthetic Devices or Brace: No Transfers Transfer Destination Bed Chair Toilet Transfer Technique Stand Step Pivot Transfer Ability Level of Assist Contact Guard Assistance Comments Mobility Comments Pt got up from EOB and amb to bathroom for toileting. Pt was able to transfer in and out with a low toilet seat but with the use of grab bar/ FWW for support. He did need cues for eccentric lowering to chair. Pt overall needed CGA/ SBA and able to maintain his O2 sat 88-94% with 1L O2/min. Gait Assessment Gait Gait Assistance Required: Contact Guard Assist Distance (Feet) 18 Able to Maintain Weight Bearing Status Yes During Gait Assistive Devices Assistive Device Gait Belt Front Wheeled Walker Orthotic/Prosthetic Devices or Brace: No Gait Deviations General Gait Pattern Decreased Stride Length Decreased Feet Clearance Flexed Trunk Factors Limiting Gait Function Factors Limiting Gait Function Decreased Activity Tolerance Decreased Strength Poor Balance Poor Safety Awareness Respiratory Distress Comments Gait Comments Pt amb from EOB to bathroom and returned to bedside chair with CGA FWW. Pt appeared to be quite impulsive from time to time and needed cues to slow down. Pt tends to increase lateral sway during amb when he increases his speed. Stair Climbing Assessment Comments Stair Climbing Comments did not attempt PT-Balance Assessment Sitting Balance and Reactions Static Sitting Balance Ability Normal Dynamic Sitting Balance Ability Normal Standing Balance and Reactions Static Standing Balance Ability Good Dynamic Standing Balance Ability Good Device Used FWW M5 PT-IP Objective Assessments Start: 01/05/19 10:51 Freq: NEEDED Status: Active Protocol: Document 01/05/19 10:15 (Rec: 01/05/19 11:17 [id number]) Orientation Orientation/Cognition Level of Alertness Alert Orientation Name Age Birthday Month Date Year Day of Week Place Situation Safety Awareness Decreased Safety Awareness Comments SOB, short sentences Gross Range of Motion Upper Extremity ROM Assessment Within Functional Limits Lower Extremity ROM Assessment Within Functional Limits Strength Upper Extremity Strength Assessment Within Functional Limits Lower Extremity Strength Assessment Left Impaired Comments Strength Comments LLE 4-/5 for strength grossly RLE 4+/5 for strength grossly Coordination Assessment Gross Coordination Gross Coordination WNL Assessment Finger to Nose Test Normal Performance Pronation/Supination Test Normal Performance Sensation Assessment Sensation Gross Sensation WNL Light Touch Intact Proprioception (Position) Intact Muscle Tone Muscle Tone WNL Yes M6 PT-IP Treatment Start: 01/05/19 10:51 Freq: NEEDED Status: Active Protocol: Document 01/05/19 10:15 (Rec: 01/05/19 11:17 [email or web address]) Physical Therapy Treatment Education Education Provided Safety M7 PT-IP Assessment and Plan Start: 01/05/19 10:51 Freq: NEEDED Status: Active Protocol: Document 01/05/19 10:15 (Rec: 01/05/19 11:17 [email or web address]) PT Summary Assessment and Plan Potential Rehabilitation Potential Good Status of Condition at Evaluation Evolving Summary Impairments Strength Balance Cognition Bed Mobility Transfers Gait Activity Tolerance Assessment Summary Pt is a 78yo male admitted to ICU due to fever/ AMS and increased weakness. Pt had multiple falls recently and dx with CHF with EF 20-25%. Upon assessment, pt seemed to be alert and oriented today but he is still a poor historian, In addition, pt appeared to be easily get irritated which make obtaining accurate social hx difficulty. Pt overall did bed mob, transfers and gait with CGA. He is slightly impulsive for functional activties, but he did know that he had falls. Pt stated he had CG but not sure about frequency. Pt also stated he does not want to go SNF but home. Spoke to SNF, will introduce pt's dtr with the option of hospice care for pt' s medical need plus household appliance mechanic care. At this point, pt is not safe to go home yet and recommend at least 24/7 care at home/ SNF care due to his ongoing resp distress and high fall risks. Goals Bed Mobility Goal Standby Assistance Transfer Goal Standby Assistance Front Wheeled Walker Gait Goal Standby Assistance Front Wheel Walker Gait Distance 200 Other Goals climb 1 step without AD Days to Meet Goals 5 Frequency of Treatment Frequency Of Treatment Once a Day Treatment Plan Physical Therapy Treatment Plan Bed Mobility Training Transfer Training Gait Training Therapeutic Exercise Discharge Planning Other Recommendations and Next Treatment bed mob, transfer, gait Focus training as luiza with LRAD Recommendations To Nursing Amount of Assist Needed 1 Person Assist Discharge Recommendations PT Discharge Recommendations Home with 24/7 Assist SNF Rehab Other Discharge Recommendations Pt also stated he does not want to go SNF but home. Spoke to SNF, will introduce pt's dtr with the option of hospice care for pt's medical need plus household appliance mechanic care. At this point, pt is not safe to go home yet and recommend at least 24/7 care at home/ SNF care due to his ongoing resp distress and high fall risks. Equipment Needed for Home Before FWW Discharge
--- NOTE | 2019-01-05 11:47 | CM.IDA ---
Initial DCP Assessment Note: Pt is a 78 yo male, resident of [place], now admitted w/multiple medical complicators to include; elevated troponin, anemia, severe CHF, severe COPD, afib and cognitive dysfuntion (chronic hypoxia, dementia). Payer: Medicare/[facility]. Reviewed chart, placed call to pt's dtr Humaira P# [phone], explained role. According to our conversation: Pt has been living at home, alone, since his many years ago. Two dtrs Mckenna ([place]) and Mallika ([place]) P# [phone] help manage needs as they arise but will not be able to care for pt in his home. Mckenna confirms pt was in a SNF in [place] for a week after leaving the hospital in [place]. He went home w/HH PT/OT and [facility] for 24/7 care; he has been home 4 days. This ACADEMIC ADMINISTRATOR and dtr Mckenna had lengthy conversation about pt's current care needs and DCP options. Mckenna is concerned that her Dad did not have proper supervision at home if he was able to get up independently at night and remove his O2,which resulted in a severe episode of disorientation in the BR. Mckenna would like to follow pt's wishes to remain at home, he has the funding available for 24/7 cgs, but Mckenna hopes he can have a little more medical oversight if available (?) PT/OT have assessed today and pt remains very confused. He is slow to process, lacks safety awareness or insight into his own needs. Mckenna asks about Hospice, what the service provides and if pt would meet criteria at this time? Mckenna explains pt wants to be home and comfort management would be appropriate per his prior stated wishes to his family. This ACADEMIC ADMINISTRATOR feels this might be very appropriate for this gentleman. Discussed the possibility of pt returning home w/Hospice (if eligible) and continued 24/7 care giving. Mckenna requested this ACADEMIC ADMINISTRATOR review the idea w/Dr Samayoa before proceeding w/ referral. P: DCP pending; It's possible it could be Home w/Hospice and around the clock skilled nursing care vs Home w/ HH vs SNF, family open at this time to what will keep pt safe and quality of life preserved. Pt wants to return home. GEOFFREY Cedeño Discharge Planning/Care Management CM Discharge Assessment Start: 01/05/19 11:23 Freq: Status: Active Protocol: Document 01/05/19 11:24 ALEXIS (Rec: 01/05/19 11:47 ALEXIS [id number]) Discharge Planning Assessment Assigned Insole Reinforcer GEOFFREY Sheikh DPOA/Assigned Designee Name Humaira raul Contact Information cell [phone] Advance Directives? Yes Advance Directives on File Yes History Provided By Family Member Medical Record Prior Living Arrangements House Household Members caregiver Type of transporation used prior to Relies on Others admit Independent with ADL's No Is patient alert and oriented? No Needs Assistance With Bathing Eating Grooming Meal Prep Toileting Managing Medications Home Chores / Shopping Barriers to Discharge Yes Review Status In Process
[2019-01-05] MEDS: buPROPion XL 150 MG TAB PO (20:02)
[2019-01-06] VITALS (8 sets, daily range): BP systolic 140–161; BP diastolic 67–95; PULSE 67–79; RESP 14–18; TEMP 36.5–37; O2SAT 92–99
[2019-01-06] MEDS: LORazepam 0.5 MG TABLET PO (01:58)
[2019-01-06 05:10] LABS: Hematocrit 33.6 % (41-53); Hemoglobin 11.4 g/dL (13.5-17.5)
[2019-01-06 05:17] LABS: BUN Creatinine Ratio 37.7 (6-22); Blood Urea Nitrogen 49 mg/dL (9-20); Calcium 8.9 mg/dL (8.4-10.2); Chloride 94 mmol/L (98-107); Estimated Glomerular Filt Rate 53.5 mL/min (>60); Glucose 94 mg/dL (80-110); HEMOLYSIS < 15 (0-50); Potassium 3.8 mmol/L (3.4-5.1); Sodium 139 mmol/L (137-145)
[2019-01-06 05:24] LABS: Carbon Dioxide 42 mmol/L (22-32)
--- NOTE | 2019-01-06 06:12 | PC.NURSE ---
Patient is oriented to person and situation, does not always use call light, bed alarm on. Mildly restless at 0200 after sitting at side of bed to void, denies chest pain or shortness of breath, SpO2 93% on 1L overnight. PO Ativan given per prn order and patients request-effective.
[2019-01-06] MEDS: LEVOTHYROXINE 75 MCG TABLET PO (06:49)
--- NOTE | 2019-01-06 09:09 | PM.PN.1 ---
Subjective Date Patient Seen: 01/06/19 Time Patient Seen: 09:09 Interval history: Patient remains intermittently confused. Does not fully understand the situation and has really no recollection of what happened yesterday or the day before. He is conversational today but, but memory clearly is impaired. Was seen by Physical therapy yesterday and felt to require senior living placement or at a minimum 24/7 supervision home with strong consideration for hospice given his end-stage disease. Care management team has spoken with patient's family which is his daughters and does the lesser extent the patient although he is confused. Hospice seems like a viable option to assist with support at home. Exam Vital Signs (past 8 hours): - 01/06/19 04:49 01/06/19 08:00 Temperature 97.8 F 97.7 F Pulse Rate 73 75 Respiratory Rate 18 16 Blood Pressure 140/76 161/71 H Pulse Oximetry 92 96 Fraction of Inspired Oxygen 0.30 Oxygen Delivery Method Nasal Cannula Oxygen Flow Rate 1 Objective Labs Result Diagrams: 01/06/19 04:47 01/06/19 04:47 Labs: Laboratory Results - last 24 hr 01/06/19 01/06/19 04:47 04:47 Hgb 11.4 L Hct 33.6 L Sodium 139 Potassium 3.8 Chloride 94 L Carbon Dioxide 42 H* BUN 49 H Creatinine 1.30 H Estimated GFR 53.5 L BUN/Creatinine Ratio 37.7 H Glucose 94 Calcium 8.9 Assessment & Plan Assessment & Plan narrative: 1. Question ischemia, cardiac- No active issues there. Patient asymptomatic. No repeat blood test. 2. Anemia-stable hemoglobin hematocrit. Continue to monitor for evidence of GI blood loss. Continue with proton pump inhibitor for now. Continue off Eliquis for now as well. 3. Chronic severe left ventricular dysfunction/congestive heart failure-appears to be euvolemic at this time. Lasix was discontinued last week because a bump in creatinine. Continue to monitor for evidence of volume overload 4. COPD-patient has very, very, very severe end-stage COPD. Continue with his inhalers and minimize oxygen as patient has proven to retain CO2. Will see how he does as far as his numbers and stamina with physical therapy and occupational therapy. This would be the basis of hospice referral which would be entirely appropriate. He does indeed have end-stage lung disease on top of newly found cardiomyopathy/chronic congestive heart failure. 5. Cognitive dysfunction-patient appears more appropriate but I do believe there is some long-term cognitive dysfunction likely multifactorial in origin related to his nutritional deficiencies after of his spouse perhaps some depression after her as well as well as chronic hypoxia related to his lung disease etc. his function today, suggested me he still unsafe really to be home without 24/7 caregivers. He has ongoing cognitive issues which are not likely to improve and very little reserve for hypoxia etc. I believe hospice with 24/7 caregivers at home is a viable option and should be explored. 6. Atrial fibrillation, chronic-continue usual meds including his carvedilol. He will remain off anticoagulation as above because of his acute anemia. 7. Hypothyroidism-continue patient's usual med 8. Anxiety-patient with lorazepam as needed as well as clonazepam daily. This is been recently decreased from 1 mg twice daily to 0.5 mg twice daily. I will continue with the 0.5 mg dose for now which should be having minimal effect on his cognitive function. I would avoid using lorazepam if at all possible the patient clearly is on some level dependent on it. 9. VTE prophylaxis-Given patient's anemia as above is not a candidate for any anticoagulant. This will include low-dose Lovenox for prophylaxis. 10. Code status-patient has previously expressed wishes for no code do not intubate no heroic measures and he will be made a do not resuscitate for the purposes of this hospitalization 11. Disposition-hospice with 24/7 caregivers in addition seems like a reasonable option and will be explored. 12. Question GI-patient with reported diarrhea. No evidence of active GI issue at this time. Continue to monitor and evaluate should it appear. Note: Greater than 30 minutes was spent evaluating the patient on the floor, including examining the patient, discussing clinical course with clinical and nursing staff, reviewing clinical course in the computer, preparing documentation and writing orders for continued management of care, discussing status with family as appropriate, reviewing plans for the next 24 hours with both patient/family and nursing staff as appropriate. Quality VTE Deep Vein Thrombosis/Pulmonary Embolism Present on Admission: No
[2019-01-06] MEDS: clonazePAM 0.5 MG TABLET PO ×2 (09:21→20:04)
[2019-01-06] MEDS: CARVEDILOL 6.25 MG TABLET PO ×2 (09:22→20:05)
[2019-01-06] MEDS: TOLTERODINE LA 2 MG CAP PO (09:23)
[2019-01-06] MEDS: PANTOPRAZOLE 40 MG VIAL IV (09:23)
[2019-01-06] MEDS: ENALAPRIL 5 MG TABLET 7.5 MG PO ×2 (09:23→20:04)
[2019-01-06] MEDS: SODIUM CHLORIDE 0.9% FLUSH 10 ML IV ×2 (09:24→20:04)
--- NOTE | 2019-01-06 10:35 | OT.IP.TRT ---
Current Diagnoses Acute respiratory failure with hypercapnia (01/04/19) Occupational Therapy Treatment Note M2 OT-IP Current Condition Start: 01/06/19 08:38 Freq: Status: Active Protocol: Document 01/05/19 11:05 PJM (Rec: 01/06/19 09:34 PJM [id number]) Occupational Therapy Current Condition Current Condition Evaluation Date 01/05/19 Treatment Diagnosis decreased cognition, mobility, self care skills; Dx: end stage COPD, anemia Diagnosis Onset Date 01/04/19 Post Operative Precautions Other Precautions fall risk, confusion, monitor O2 sats M3 OT- IP Subjective and Pain Start: 01/06/19 08:38 Freq: Status: Active Protocol: Document 01/06/19 10:35 PJM (Rec: 01/06/19 14:57 PJM [email or web address]) OT- Subjective Occupational Therapy Visit Type Visit Start Time 09:42 Visit Stop Time 10:35 Total Visit Minutes 53 Notes partial co tx with P.T. for walk to shower room with chair follow due to pt's anxiety. Occupational Therapy Visit Comments Patient Comments I get claustrophobia so it needs to be a large shower. Patient/Caregiver Goals none verbalized this session due to confusion OT Pain Assessment Pain When Pain Assessed After Treatment Pain Present Pain Present Denied Pain M4 OT- IP ADL's Start: 01/06/19 08:38 Freq: Status: Active Protocol: Document 01/06/19 10:35 PJM (Rec: 01/06/19 14:57 PJM [email or web address]) OT ADL-Dressing General Eval Lower Body Dressing Ability Standby Assistance Areas Needing Assistance Underpants/Brief Socks OT ADL-Bathing General Evaluation Bathing Ability Moderate Assistance Areas Needing Assistance Retrieving/Setting Up Items Wash/Dry Back Wash/Dry Lower Extremities Devices Bathing Equipment Hand Held Shower Sprayer Grab Bars Comments OT Bathing Comments Pt using grab bars to assist with standing for isabela care with no loss of balance noted. Pt taking frequent rest breaks due to mild SOB. Pt on 3L O2 for shower after discussion with RN. Pt's O2 sats 88 after shower completed. . M6 OT- IP Functional Cognition Start: 01/06/19 08:38 Freq: Status: Active Protocol: Document 01/06/19 10:35 PJM (Rec: 01/06/19 14:57 PJM [email or web address]) Cognitive Factors Limiting Selfcare Function Cognitive Ability Level of Alertness Confusional State Patient Orientation Name Attention Span Ability Capable of Focused Attention Capable of Sustained Attention Ability to Follow Commands Able to Follow One Step Commands with Increased Time Memory Description Short Term Impaired Safety Awareness Decreased Recall of Precautions Underestimates Need for Assistance Problem Solving Ability Needs Assist to Identify Solutions Executive Function Ability Unable to Remember Details Cognitive Comments Cognitive Assessment Comments Pt more verbal today with prolonged story telling despite therapist cues to limit conversation to conserve energy. M7 OT- IP Mobility and Balance Start: 01/06/19 08:38 Freq: Status: Active Protocol: Document 01/06/19 10:35 PJM (Rec: 01/06/19 14:57 PJM [email or web address]) OT-Transfer Assessment Sit to and From Stand Sit to and from Stand Contact Guard Assistance Transfers Transfer Ability Standby Assistance Contact Guard Assistance Technique Transfer Destination Chair Shower Stall Comments Mobility Comments Pt CGA to arise from chair, SBA to descend to chair and shower seat. SBA to arise from shower seat using wall mounted grab bars. OT- Gait Assessment Gait Gait Assistance Required: Contact Guard Assist Distance (Feet) 30 Assistive Devices Assistive Device Gait Belt Front Wheeled Walker Comments Gait Ability Comments Pt ambulated 30 feet from shower room back to his room with no rest break and stable O2 sats on 3L O2. OT- Balance Assessment Sitting Balance and Reactions Static Sitting Balance Ability Good Dynamic Sitting Balance Ability Good Standing Balance and Reactions Static Standing Balance Ability Good Dynamic Standing Balance Ability Fair M8 OT- IP Objective Assessments Start: 01/06/19 08:38 Freq: Status: Active Protocol: Document 01/05/19 11:05 PJM (Rec: 01/06/19 09:34 PJM [id number]) OT Gross Range of Motion Upper Extremity Range of Motion Assessment Within Functional Limits OT Strength Upper Extremity Strength Assessment Within Functional Limits Hand Melter Loader Strength Hand Dominance Right OT- Coordination Assessment Comments Coordination Comments Slowed gross and fine rapid alternating movements noted. OT-Muscle Tone Assessment Muscle Tone WNL Yes OT Sensation Assessment Comments Summary Comments Pt appears to detect lt touch in BUE and denies sensory deficits Edema Edema Absent M9 OT- IP Assessment and Plan Start: 01/06/19 08:38 Freq: Status: Active Protocol: Document 01/06/19 10:35 PJM (Rec: 01/06/19 14:57 PJM [email or web address]) OT Summary Assessment and Plan Summary OT Impairments Balance Functional Cognition Functional Mobility Toileting Bathing Toilet Transfers Shower Transfers Progress Towards Goals Slow Progress due to Medical Issues Slow Progress due to Activity Tolerance Slow Progress due to Cognition Assessment Summary Pt initially quite anxious about shower, eventually able to verbalize concerns about being claustrophobic. With encouragement and distraction, pt ambulated 30 ft to shower room and completed seated shower with mod assist. Pt had sufficient activity tolerance to walk 30 ft back to room. O2 sats stable in high 80's low 90's on 3L O2 during shower/walking then back to 1. 5 L when pt settled in bed to rest. Pt distracts self with tangential long stories with persistent very slow speed of processing. Pt will require 24 hr assist for safety at home due to decreased initiation of functional tasks such as meal planning and prep. He has decreased insight into basic safety issues, pacing, and potential hazards. Pt needs supervision for all medication and financial compliance officer due to short term memory deficits. Per chart notes, d/c plan is now home with 24/ caregivers and hospice. Goals Grooming Goal Standby Assistance Dressing Goal Standby Assistance Toileting Goal Standby Assistance Bathing Goal Minimal Assistance Grab Bars Hand Held Shower Sprayer Toilet Transfer Goal Standby Assistance Shower Transfer Goal Standby Assistance Walk-in Shower Shower Chair Grab Bars Patient/Caregiver Education Goal Caregiver Independent Assisting Patient OT-Other Goals Grooming to be done standing or seated at sink. Pt will maintain O2 sats in 88 -94 range during all self care tasks on 1-2L O2. Days to Meet Goals 2 Frequency of Treatment Frequency Of Treatment Once a Day Treatment Plan OT Treatment Plan ADL Training Functional Mobility Patient/Family Education Discharge Planning Discharge Recommendations OT Discharge Recommendations Home with 24/7 Assist SNF Rehab
[2019-01-06] MEDS: TIOTROPIUM BROMIDE 18 MCG INHALER INH (10:58)
[2019-01-06] MEDS: FLUTICASONE/SALMETEROL 500/50 14 PUFF DISKUS INH ×2 (10:58→20:07)
--- NOTE | 2019-01-06 11:59 | PT.IPTN ---
Current Diagnoses Acute respiratory failure with hypercapnia (01/04/19) Physical Therapy Treatment Note M2 PT-IP Current Condition Start: 01/05/19 10:51 Freq: NEEDED Status: Active Protocol: Document 01/05/19 10:15 HH (Rec: 01/05/19 11:17 HH [email or web address]) Physical Therapy Current Condition Current Condition Evaluation Date 01/05/19 Treatment Diagnosis Fever/confusion, diarrhea, COPD, impaired gait and activity tolerance Onset Date 01/03/19 Weight Bearing Status Weight Bearing Status Weight Bear as Tolerated M3 PT-IP Subjective Start: 01/05/19 10:51 Freq: NEEDED Status: Active Protocol: Document 01/06/19 09:40 HH (Rec: 01/06/19 11:59 HH [email or web address]) Subjective Physical Therapy Visit Type Type Treatment Note Visit Start Time 09:40 Visit Stop Time 10:00 Total Visit Minutes 20 Physical Therapy Visit Comments Patient Comments Pt agreeable to mobilize with PT and to shower with OT assist. Co-tx with OT Therapy Pain Assessment Pain Present Pain Present Denied Pain M4 PT-IP Mobility and Gait Start: 01/05/19 10:51 Freq: NEEDED Status: Active Protocol: Document 01/06/19 09:40 HH (Rec: 01/06/19 11:59 [email or web address]) PT-Transfer Assessment Sit to and From Stand Sit to and from Stand Contact Guard Assistance Use of Upper Extremities Equipment Transfer Assistive Device Gait Belt Front Wheeled Walker Orthotic/Prosthetic Devices or Brace: No Transfers Transfer Destination Bed Chair Toilet Transfer Technique Stand Step Pivot Transfer Ability Level of Assist Contact Guard Assistance Comments Mobility Comments Pt was up in chair upon assessment. Pt overall transfer to chair / STS with CGA FWW Gait Assessment Gait Gait Assistance Required: Contact Guard Assist Distance (Feet) 30 Able to Maintain Weight Bearing Status Yes During Gait Assistive Devices Assistive Device Gait Belt Front Wheeled Walker Orthotic/Prosthetic Devices or Brace: No Gait Deviations General Gait Pattern Decreased Stride Length Decreased Feet Clearance Flexed Trunk Factors Limiting Gait Function Factors Limiting Gait Function Decreased Activity Tolerance Decreased Strength Poor Balance Poor Safety Awareness Respiratory Distress Comments Gait Comments Pt amb to shower room followed by W/C and sat on shower seat . Required CGA FWW and pt was steady without signs of LOB. Used 2L/min for portable O2. M5 PT-IP Objective Assessments Start: 01/05/19 10:51 Freq: NEEDED Status: Active Protocol: Document 01/05/19 10:15 (Rec: 01/05/19 11:17 [email or web address]) Orientation Orientation/Cognition Level of Alertness Alert Orientation Name Age Birthday Month Date Year Day of Week Place Situation Safety Awareness Decreased Safety Awareness Comments SOB, short sentences Gross Range of Motion Upper Extremity ROM Assessment Within Functional Limits Lower Extremity ROM Assessment Within Functional Limits Strength Upper Extremity Strength Assessment Within Functional Limits Lower Extremity Strength Assessment Left Impaired Comments Strength Comments LLE 4-/5 for strength grossly RLE 4+/5 for strength grossly Coordination Assessment Gross Coordination Gross Coordination WNL Assessment Finger to Nose Test Normal Performance Pronation/Supination Test Normal Performance Sensation Assessment Sensation Gross Sensation WNL Light Touch Intact Proprioception (Position) Intact Muscle Tone Muscle Tone WNL Yes M6 PT-IP Treatment Start: 01/05/19 10:51 Freq: NEEDED Status: Active Protocol: Document 01/05/19 10:15 (Rec: 01/05/19 11:17 [email or web address]) Physical Therapy Treatment Education Education Provided Safety M7 PT-IP Assessment and Plan Start: 01/05/19 10:51 Freq: NEEDED Status: Active Protocol: Document 01/06/19 09:40 (Rec: 01/06/19 11:59 [email or web address]) PT Summary Assessment and Plan Potential Rehabilitation Potential Good Status of Condition at Evaluation Evolving Summary Impairments Strength Balance Cognition Bed Mobility Transfers Gait Activity Tolerance Assessment Summary Pt showed improved mobility and O2 sat. Pt cont presents significant accessory breathing at rest/ during mobility. Spoke to SW, will introduce pt's dtr with the option of hospice care for pt' s medical need plus hl7 developer care Goals Bed Mobility Goal Standby Assistance Transfer Goal Standby Assistance Front Wheeled Walker Gait Goal Standby Assistance Front Wheel Walker Gait Distance 200 Other Goals climb 1 step without AD Days to Meet Goals 5 Frequency of Treatment Frequency Of Treatment Once a Day Treatment Plan Physical Therapy Treatment Plan Bed Mobility Training Transfer Training Gait Training Therapeutic Exercise Discharge Planning Other Recommendations and Next Treatment bed mob, transfer, gait Focus training as luiza with LRAD Recommendations To Nursing Amount of Assist Needed 1 Person Assist Discharge Recommendations PT Discharge Recommendations Home with 24/7 Assist SNF Rehab Other Discharge Recommendations Pt also stated he does not want to go SNF but home. Spoke to SNF, will introduce pt's dtr with the option of hospice care for pt's medical need plus hl7 developer care. At this point, pt is not safe to go home yet and recommend at least 24/7 care at home/ SNF care due to his ongoing resp distress and high fall risks. Equipment Needed for Home Before FWW Discharge
--- NOTE | 2019-01-06 14:10 | CM.DPNOTE ---
Discussed POC/ DCP w/ Dr Samayoa this morning, Hospice referral is appropriate for this pt and furthermore, pt would be best served having Hospice arranged and DME delivered before his return home. Pt's readmission risk is high w/o the proper supportive and skilled care in place at home. Placed call to dtr Humaira and confirmed she wanted Hospice referral. Humaira has some concern that [facility] staff could not administer meds (?) and [employer] Executive Director has said to Humaira that they do nothing medical for clients (?) This needs to be clarified. [facility] contact is Susana [place]# [phone]. Then placed call to Kristin w/ [facility] to discuss referral. Faxed clinical packet to include face sheet. Dtr Humaira requested info visit by phone. Humaira also indicated that her sister, Mallika would be available tomorrow, Thursday, and Thursday to assist academic affairs director in the admission process. According to conversation w/ [facility] Foster, admission schedule unknown at this time but Info visit will be arranged and Kristin will update this ENGINE WIPER w/schedule as soon as she knows. Following closely for coordination of safe DC plan. GEOFFREY Cedeño
[2019-01-06] MEDS: buPROPion XL 150 MG TAB PO (20:05)
[2019-01-07 04:00] VITALS: BP 116/69; PULSE 86; RESP 20; TEMP 36.6; O2SAT 92
[2019-01-07 05:42] LABS: Hematocrit 34.2 % (41-53); Hemoglobin 11.4 g/dL (13.5-17.5)
[2019-01-07 07:48] VITALS: BP 151/75; PULSE 70; RESP 16; TEMP 36.7; O2SAT 95
--- NOTE | 2019-01-07 08:27 | P.PN_ITS ---
Subjective Date Patient Seen: 01/07/19 Time Patient Seen: 08:20 Interval history: No new issues or complaints. Patient had a restful night. Still intermittently confused disoriented and does not seem to have full understanding of his situation followed by times of being much more oriented. Exam Vital Signs (past 8 hours): - 01/07/19 04:00 01/07/19 07:48 Temperature 97.9 F 98.0 F Pulse Rate 86 70 Respiratory Rate 20 16 Blood Pressure 116/69 151/75 H Pulse Oximetry 92 95 Fraction of Inspired Oxygen 0.30 Oxygen Delivery Method Nasal Cannula Oxygen Flow Rate 1 Narrative Exam Narrative: Unchanged from previous Objective Labs Result Diagrams: 01/07/19 05:10 01/06/19 04:47 Labs: Laboratory Results - last 24 hr 01/07/19 05:10 Hgb 11.4 L Hct 34.2 L Assessment & Plan Assessment & Plan narrative: 1. Possible cardiac ischemia-patient with elevated troponin in the setting of severe hypoxia suggestive of a type 2 myocardial infarction however immediately went back to normal (the troponin) and is unable to determine therefore whether patient actually sustained any infarction. Patient is asymptomatic and his underlying issues with his anemia and hypoxia have been corrected. Continue to monitor for increasing cardiac difficulties which do not appear to be present at the current time. 2 anemia-unclear as to source of patient's anemia. I would assume this is an acute blood loss anemia likely related somehow to his anticoagulation. Since transfusion is numbers have been stable and there has been no evidence of active GI bleeding or other source of blood loss. Continue to monitor although I am not planning to repeat his blood counts unless there is clinical reason to do so. 3. Presumed ischemic cardiomyopathy with severe left ventricular dysfunction- patient remains asymptomatic and remains off of furosemide. 4. COPD-patient presented with acute respiratory failure in the setting of chronic COPD. I do not believe there is any evidence of acute exacerbation of his COPD. His presentation was merely due to the lack of oxygen and once that was replaced he has done much better. Continue with current therapies including his inhalers and oxygen 5. Cognitive dysfunction- patient presented with an acute metabolic encephalopathy in the setting of chronic mild cognitive impairment. The acute portion was induced by his persistent hypoxia. I believe patient has some underlying mild to moderate cognitive dysfunction likely multifactorial in origin as previously discussed. He is much improved currently but still not able to manage his own affairs or be safe in any fashion on his own alone. He will need to be either at home with 24/7 caregivers who provide basics including medication administration and monitoring for clinical decline or in a facility that can provide that same function. Current plan is to send him home with hospice (which is entirely appropriate giving his severe medical issues above) and 24/7 caregivers. 6. Atrial fibrillation-adequate rate control continue carvedilol continue off of anticoagulation 7. Hypothyroidism, on medication 8. Anxiety-patient is stable with intermittent dosing lorazepam as well as low- dose daily clonazepam which has been a long-term medication for him. No changes anticipated at this time or upon discharge 9. Disposition-as above plan for discharge home with hospice and 24/7 caregivers when this can be arranged. 10. GI-patient now reporting no bowel movement . No evidence of stool on patient's Is & Os in the chart. Therefore the issue upon presentation was more confusion disorientation than actual diarrhea it would appear therefore. Will add some bowel regimen medications to his list for use as needed. At this point patient is medically stable and his ongoing hospitalization depends on safe discharge planning which always takes longer than expected. Continue with medical care as above and when safe discharge plan is in place he can be discharged home. Note: Greater than 30 minutes was spent evaluating the patient on the floor, including examining the patient, discussing clinical course with clinical and nursing staff, reviewing clinical course in the computer, preparing documentation and writing orders for continued management of care, discussing status with family as appropriate, reviewing plans for the next 24 hours with both patient/family and nursing staff as appropriate. Quality VTE Deep Vein Thrombosis/Pulmonary Embolism Present on Admission: No
[2019-01-07] MEDS: FLUTICASONE/SALMETEROL 500/50 14 PUFF DISKUS INH ×2 (08:38→18:17)
[2019-01-07 08:39] VITALS: PULSE 84; RESP 18; O2SAT 95
[2019-01-07] MEDS: TIOTROPIUM BROMIDE 18 MCG INHALER INH (08:39)
[2019-01-07] MEDS: ENALAPRIL 5 MG TABLET 7.5 MG PO ×2 (08:44→20:56)
[2019-01-07] MEDS: TOLTERODINE LA 2 MG CAP PO (08:44)
[2019-01-07] MEDS: LEVOTHYROXINE 75 MCG TABLET PO (08:45)
[2019-01-07] MEDS: CARVEDILOL 6.25 MG TABLET PO ×2 (08:45→20:55)
[2019-01-07] MEDS: clonazePAM 0.5 MG TABLET PO ×2 (08:47→20:55)
[2019-01-07] MEDS: DOCUSATE 100 MG CAPSULE PO ×2 (08:48→20:55)
--- NOTE | 2019-01-07 09:44 | PT.IPTN ---
Current Diagnoses Acute respiratory failure with hypercapnia (01/04/19) Physical Therapy Treatment Note M2 PT-IP Current Condition Start: 01/05/19 10:51 Freq: NEEDED Status: Active Protocol: Document 01/05/19 10:15 HH (Rec: 01/05/19 11:17 HH [email or web address]) Physical Therapy Current Condition Current Condition Evaluation Date 01/05/19 Treatment Diagnosis Fever/confusion, diarrhea, COPD, impaired gait and activity tolerance Onset Date 01/03/19 Weight Bearing Status Weight Bearing Status Weight Bear as Tolerated M3 PT-IP Subjective Start: 01/05/19 10:51 Freq: NEEDED Status: Active Protocol: Document 01/07/19 09:15 LJ (Rec: 01/07/19 09:44 LJ [id number]) Subjective Physical Therapy Visit Type Type Treatment Note Visit Start Time 09:15 Visit Stop Time 09:36 Total Visit Minutes 21 Notes Pt in chair finishing breakfast. States he needs to use the toilet Physical Therapy Visit Comments Patient Comments Doesn't think he can walk in the hallway. M4 PT-IP Mobility and Gait Start: 01/05/19 10:51 Freq: NEEDED Status: Active Protocol: Document 01/07/19 09:15 LJ (Rec: 01/07/19 09:44 LJ [id number]) PT-Transfer Assessment Sit to and From Stand Sit to and from Stand Standby Assistance Use of Upper Extremities Equipment Transfer Assistive Device Gait Belt Front Wheeled Walker Orthotic/Prosthetic Devices or Brace: No Transfers Transfer Destination Toilet Transfer Technique Stand Step Pivot Transfer Ability Level of Assist Standby Assistance Use of Upper Extremities Comments Mobility Comments Pt SBA for sit<>stand from toilet and chair. Impulsive with movement. Gait Assessment Gait Gait Assistance Required: Contact Guard Assist Distance (Feet) 10 Able to Maintain Weight Bearing Status Yes During Gait Assistive Devices Assistive Device Gait Belt Front Wheeled Walker Orthotic/Prosthetic Devices or Brace: No Gait Deviations General Gait Pattern Decreased Stride Length Decreased Feet Clearance Flexed Trunk Factors Limiting Gait Function Factors Limiting Gait Function Decreased Activity Tolerance Decreased Strength Poor Safety Awareness Respiratory Distress Comments Gait Comments Pt ambulated to toilet from chair SBA. Somewhat confused for following directions in turning so as to not get tangled in O2 line. Left pt on toilet and notified nursing. M5 PT-IP Objective Assessments Start: 01/05/19 10:51 Freq: NEEDED Status: Active Protocol: Document 01/05/19 10:15 (Rec: 01/05/19 11:17 [email or web address]) Orientation Orientation/Cognition Level of Alertness Alert Orientation Name Age Birthday Month Date Year Day of Week Place Situation Safety Awareness Decreased Safety Awareness Comments SOB, short sentences Gross Range of Motion Upper Extremity ROM Assessment Within Functional Limits Lower Extremity ROM Assessment Within Functional Limits Strength Upper Extremity Strength Assessment Within Functional Limits Lower Extremity Strength Assessment Left Impaired Comments Strength Comments LLE 4-/5 for strength grossly RLE 4+/5 for strength grossly Coordination Assessment Gross Coordination Gross Coordination WNL Assessment Finger to Nose Test Normal Performance Pronation/Supination Test Normal Performance Sensation Assessment Sensation Gross Sensation WNL Light Touch Intact Proprioception (Position) Intact Muscle Tone Muscle Tone WNL Yes M6 PT-IP Treatment Start: 01/05/19 10:51 Freq: NEEDED Status: Active Protocol: Document 01/05/19 10:15 (Rec: 01/05/19 11:17 [email or web address]) Physical Therapy Treatment Education Education Provided Safety M7 PT-IP Assessment and Plan Start: 01/05/19 10:51 Freq: NEEDED Status: Active Protocol: Document 01/07/19 09:15 LJ (Rec: 01/07/19 09:44 LJ [id number]) PT Summary Assessment and Plan Summary Assessment Summary Pt in no respiratory distress after ambulating to toilet. Nursing states they will walk with him after he finishes BM Goals Bed Mobility Goal Standby Assistance Transfer Goal Standby Assistance Front Wheeled Walker Gait Goal Standby Assistance Front Wheel Walker Gait Distance 200 Other Goals climb 1 step without AD Days to Meet Goals 5 Frequency of Treatment Frequency Of Treatment Once a Day Treatment Plan Physical Therapy Treatment Plan Bed Mobility Training Transfer Training Gait Training Therapeutic Exercise Discharge Planning Other Recommendations and Next Treatment bed mob, transfer, gait Focus training as luiza with LRAD Recommendations To Nursing Amount of Assist Needed Standby Assistance Discharge Recommendations PT Discharge Recommendations Home with 24/7 Assist SNF Rehab Other Discharge Recommendations Pt also stated he does not want to go SNF but home. Spoke to SNF, will introduce pt's dtr with the option of hospice care for pt's medical need plus senior ui ux developer care. At this point, pt is not safe to go home yet and recommend at least 24/7 care at home/ SNF care due to his ongoing resp distress and high fall risks. Equipment Needed for Home Before FWW Discharge
[2019-01-07] MEDS: LORazepam 0.5 MG TABLET PO ×2 (09:52→14:48)
--- NOTE | 2019-01-07 11:20 | OT.IP.TRT ---
Current Diagnoses Acute respiratory failure with hypercapnia (01/04/19) Occupational Therapy Treatment Note M2 OT-IP Current Condition Start: 01/06/19 08:38 Freq: Status: Active Protocol: Document 01/05/19 11:05 PJM (Rec: 01/06/19 09:34 PJM [id number]) Occupational Therapy Current Condition Current Condition Evaluation Date 01/05/19 Treatment Diagnosis decreased cognition, mobility, self care skills; Dx: end stage COPD, anemia Diagnosis Onset Date 01/04/19 Post Operative Precautions Other Precautions fall risk, confusion, monitor O2 sats M3 OT- IP Subjective and Pain Start: 01/06/19 08:38 Freq: Status: Active Protocol: Document 01/07/19 11:02 CCC (Rec: 01/07/19 11:20 CCC [email or web address]) OT- Subjective Occupational Therapy Visit Type Type Treatment Note Visit Start Time 10:30 Visit Stop Time 10:53 Total Visit Minutes 23 Occupational Therapy Visit Comments Patient Comments Pt agreeable to brush his teeth, but wanting to stay in bed as just got up with nursing eariler. OT Pain Assessment Pain When Pain Assessed At Rest Pain Present Pain Present Denied Pain M4 OT- IP ADL's Start: 01/06/19 08:38 Freq: Status: Active Protocol: Document 01/07/19 11:02 CCC (Rec: 01/07/19 11:20 CCC [email or web address]) OT ADL-Grooming General Evaluation Grooming Ability Standby Assistance Areas Needing Assistance Retrieving/Set-up of Grooming Items Comments OT Grooming Comments Pt able to do all grooming needs while sitting in the bed with HOB up. OT ADL-Oral Care General Eval Oral Care Ability Independent M5 OT- IP IADL's Start: 01/06/19 08:38 Freq: Status: Active Protocol: Document 01/05/19 11:05 PJM (Rec: 01/06/19 09:34 PJM [id number]) OT-Instrumental Activities of Daily Living Deficits IADL Deficits Identified Deficits Home Safety Awareness Awareness of Need for Assistance at Home Decreased Awareness Ability to Problem Solve Emergency Unable to Problem Solve Situations Medication Management Medication Management Caregiver Administers Medication Management Comments pt needs total assist with medicaiton management at home due to confusion and short term memory deficits; per chart notes, MD suspected pt making medication errors at home Money Management Money Management Caregiver Provides Assistance Money Management Comments pt needs total assist due to cognitive status Meal Preparation Meal Preparation Caregiver Provides Assist Meal Preparation Comments pt needs total assist due to cognitive status due to inability to meal plan and intitiate appropriate meal prep to ensure adequate nutrition Bid Clerk Bid Clerk Caregiver Provides Assist Bid Clerk Comments pt needs total assist due to decreased activity tolerance Driving Driving Caregiver Provides Assist Driving Comments pt needs total assist due to cognitive status and decreased activity tolerance M6 OT- IP Functional Cognition Start: 01/06/19 08:38 Freq: Status: Active Protocol: Document 01/07/19 11:02 [facility] (Rec: 01/07/19 11:20 [facility] [id number]) Cognitive Factors Limiting Selfcare Function Cognitive Ability Level of Alertness Alert Patient Orientation Name Year Day of Week Attention Span Ability Capable of Focused Attention Capable of Sustained Attention Ability to Follow Commands Able to Follow One Step Commands Memory Description Short Term Impaired Cognitive Tests SLUMS Pt retested on SLUMs and score 23/30 today normal 27/30, difficulty with short term memory mainly at this time, able to do mental math and draw clock accurately today. Cognitive Comments Cognitive Assessment Comments Pt able to follow commands, participate in conversation appropriately and stay on task today. Pt cooperative and pleasant. M7 OT- IP Mobility and Balance Start: 01/06/19 08:38 Freq: Status: Active Protocol: Document 01/06/19 10:35 PJM (Rec: 01/06/19 14:57 PJM [id number]) OT-Transfer Assessment Sit to and From Stand Sit to and from Stand Contact Guard Assistance Transfers Transfer Ability Standby Assistance Contact Guard Assistance Technique Transfer Destination Chair Shower Stall Comments Mobility Comments Pt CGA to arise from chair, SBA to descend to chair and shower seat. SBA to arise from shower seat using wall mounted grab bars. OT- Gait Assessment Gait Gait Assistance Required: Contact Guard Assist Distance (Feet) 30 Assistive Devices Assistive Device Gait Belt Front Wheeled Walker Comments Gait Ability Comments Pt ambulated 30 feet from shower room back to his room with no rest break and stable O2 sats on 3L O2. OT- Balance Assessment Sitting Balance and Reactions Static Sitting Balance Ability Good Dynamic Sitting Balance Ability Good Standing Balance and Reactions Static Standing Balance Ability Good Dynamic Standing Balance Ability Fair M8 OT- IP Objective Assessments Start: 01/06/19 08:38 Freq: Status: Active Protocol: Document 01/05/19 11:05 PJM (Rec: 01/06/19 09:34 PJM [id number]) OT Gross Range of Motion Upper Extremity Range of Motion Assessment Within Functional Limits OT Strength Upper Extremity Strength Assessment Within Functional Limits Hand Appraiser Auditor Strength Hand Dominance Right OT- Coordination Assessment Comments Coordination Comments Slowed gross and fine rapid alternating movements noted. OT-Muscle Tone Assessment Muscle Tone WNL Yes OT Sensation Assessment Comments Summary Comments Pt appears to detect lt touch in BUE and denies sensory deficits Edema Edema Absent M9 OT- IP Assessment and Plan Start: 01/06/19 08:38 Freq: Status: Active Protocol: Document 01/07/19 11:02 [facility] (Rec: 01/07/19 11:20 [facility] [email or web address]) OT Summary Assessment and Plan Potential Rehabilitation Potential Excellent Analytic Complexity at Evaluation Low Summary OT Impairments Balance Functional Cognition Functional Mobility Toileting Bathing Toilet Transfers Shower Transfers Progress Towards Goals Slow Progress due to Medical Issues Slow Progress due to Activity Tolerance Slow Progress due to Cognition Assessment Summary Pt less distracted and able to follow commands and partake in conversation today. Still recommend home with 24/7 assist and now family looking into hospice at well. Goals Grooming Goal Standby Assistance Dressing Goal Standby Assistance Toileting Goal Standby Assistance Bathing Goal Minimal Assistance Grab Bars Hand Held Shower Sprayer Toilet Transfer Goal Standby Assistance Shower Transfer Goal Standby Assistance Walk-in Shower Shower Chair Grab Bars Patient/Caregiver Education Goal Caregiver Independent Assisting Patient OT-Other Goals Grooming to be done standing or seated at sink. Pt will maintain O2 sats in 88 -94 range during all self care tasks on 1-2L O2. Days to Meet Goals 2 Frequency of Treatment Frequency Of Treatment Once a Day Treatment Plan OT Treatment Plan ADL Training Functional Mobility Patient/Family Education Discharge Planning Discharge Recommendations OT Discharge Recommendations Home with 24/7 Assist SNF Rehab
--- NOTE | 2019-01-07 14:25 | CM.DPNOTE ---
Continued work on coordination of DCP: Hospice has held an admission spot for Thursday between -. Most (all?) DME needed is already in the home, per Kristin w/ [facility]. Pt will need BLS arranged (ideally Thursday) in preparation for this discharge. Contacted Susana w/ [facility]# [phone] to update on this plan. She explained to this PRODUCTION CLERKS SUPERVISOR that she had cgs available that had extensive experience caring for clients on Hospice. All cgs assigned could assist pt in administering his own medication, though if or when pt was not able to physically bring medication to his mouth, a cg would need to be delegated in order to assist w/this care need. Susana had all confidence that they could care for pt in his home w/24-7 care until he passed. Updated dtr Humaira w/plan from ZACKARYW, had to leave detailed VM. It's likely, per prior conversation w/Humaira, that pt's other dtr Mallika will be available Thursday evening/Thursday to assist pt in his transition home w/hospice. PRODUCTION CLERKS SUPERVISOR team will continue to follow closely. GEOFFREY Cedeño
[2019-01-07] MEDS: SODIUM CHLORIDE 0.9% FLUSH 10 ML IV ×2 (14:48→20:58)
[2019-01-07 16:33] VITALS: BP 153/78; PULSE 82; RESP 19; TEMP 36.9; O2SAT 95
[2019-01-07] MEDS: MAGNESIUM HYDROXIDE 30 ML UDC PO (16:34)
[2019-01-07 18:17] VITALS: PULSE 77; RESP 18; O2SAT 97
[2019-01-07 19:52] VITALS: O2SAT 95
[2019-01-07] MEDS: buPROPion XL 150 MG TAB PO (20:55)
[2019-01-07] MEDS: ACETAMINOPHEN 325 MG TABLET 650 MG PO (22:42)
[2019-01-08] VITALS (9 sets, daily range): BP systolic 116–136; BP diastolic 61–73; PULSE 60–73; RESP 14–19; TEMP 36.4–37.2; O2SAT 91–97
[2019-01-08] MEDS: LEVOTHYROXINE 75 MCG TABLET PO (05:29)
[2019-01-08] MEDS: PANTOPRAZOLE 40 MG TABLET PO (05:29)
--- NOTE | 2019-01-08 05:33 | PC.NURSE ---
Pt. transferred to M/S via a wheelchair with 2L 02 NC on. Protonix and Levothyroxine given early per Annie (coordinator's request).
--- NOTE | 2019-01-08 06:02 | PC.NURSE ---
Pt transferred to room 217, arrived in wheelchair on 2L O2 by NC, transferred self to bed, oriented to room, call light and safety measures, connected to 2L O2 by NC from wall.
[2019-01-08] MEDS: ACETAMINOPHEN 325 MG TABLET 650 MG PO (06:41)
[2019-01-08] MEDS: clonazePAM 0.5 MG TABLET PO ×2 (08:18→20:56)
[2019-01-08] MEDS: TOLTERODINE LA 2 MG CAP PO (08:18)
[2019-01-08] MEDS: DOCUSATE 100 MG CAPSULE PO ×2 (08:18→20:56)
[2019-01-08] MEDS: CARVEDILOL 6.25 MG TABLET PO ×2 (08:18→20:56)
[2019-01-08] MEDS: ENALAPRIL 5 MG TABLET 7.5 MG PO ×2 (08:19→20:56)
[2019-01-08] MEDS: SODIUM CHLORIDE 0.9% FLUSH 10 ML IV (08:19)
[2019-01-08] MEDS: TIOTROPIUM BROMIDE 18 MCG INHALER INH (08:55)
[2019-01-08] MEDS: FLUTICASONE/SALMETEROL 500/50 14 PUFF DISKUS INH ×2 (08:55→20:30)
[2019-01-08] MEDS: MAGNESIUM HYDROXIDE 30 ML UDC PO (09:15)
--- NOTE | 2019-01-08 10:52 | PM.PN.1 ---
Subjective Date Patient Seen: 01/08/19 Time Patient Seen: 10:52 Interval history: COPD. Patient has no complaints other than he feels constipated anticipating some sort of assistance. He has some vague abdominal discomfort but nothing major. Otherwise status quo. His questions about the discharge planning and hospice. Exam Vital Signs (past 8 hours): - 01/08/19 07:28 01/08/19 08:18 01/08/19 08:19 Temperature 97.6 F Pulse Rate 60 Respiratory Rate 16 Blood Pressure 136/69 136/69 136/69 Pulse Oximetry 93 01/08/19 09:00 Temperature Pulse Rate 73 Respiratory Rate 18 Blood Pressure Pulse Oximetry 93 Fraction of Inspired Oxygen 24 Oxygen Delivery Method Nasal Cannula Oxygen Flow Rate 1 Narrative Exam Narrative: Patient is resting quietly in bed nasal oxygen flowing he appears in no distress conversant and appropriate. Chest exam shows decreased breath sounds throughout cardiac exam regular rhythm. Abdominal exam no masses no tenderness Objective Labs Result Diagrams: 01/07/19 05:10 01/06/19 04:47 Labs: Labs from yesterday is reviewed Assessment & Plan Assessment & Plan narrative: End-stage COPD with discharge planning forthcoming as per Dr. Sofia hill discharged on Thursday home with hospice care. 2. Constipation an issue fleets enema/Dulcolax tablets ordered. Quality VTE Deep Vein Thrombosis/Pulmonary Embolism Present on Admission: No
--- NOTE | 2019-01-08 11:07 | CM.DPC ---
Addendum entered by GEOFFREY Ledesma 01/08/19 11:20: Per PT, pt would be safe for d/c home via either w/c van or Dtr's private vehicle depending on what family would prefer. No family currently bedside and Dtr Roxanna to be bedside tomorrow Thursday. SW to follow for further discussion with Dtr Roxanna tomorrow on whether she would feel more comfortable with private pay w/c van or transporting pt herself with staff help here on Thursday. GEOFFREY Ledesma Original Note: DCP Cont: Per RT and RN, pt still on oxygen and will need oxygen at discharge. SW received msg from pt's Dtr/DPOA Mallika (Roxanna) [phone] confirming that she is driving up from [facility] this and likely will be bedside tomorrow Thursday01/09/19 to help with any d/c coordinating needs and just to be here for the anticipated plan of discharging home Thursday01/10/19 with [facility] to open pt to service between [id number]. SW spoke to PT to determine safest mode of transport as pt has recently been able to sit up and ambulate in his room and PT will help confirm if pt needs BLS vs private vehicle for safe transport Thursday to his home in [place] as SW does not want family to end up with a bill for BLS stretcher transport if pt can safely go by private vehicle. BLS form completed in anticipation of possible stretcher transport but pending PT assess on Thursday. Plan: SW to follow closely for likely pt d/c home Thursday01/10/19 with [facility] at 1000 and SW to coordinate with PT on Thursday to determine BLS vs private vehicle transport. Dtr/GREYSON Mcknight to be bedside Thursday. GEOFFREY Ledesma
--- NOTE | 2019-01-08 11:30 | PT.IPTN ---
Current Diagnoses Acute respiratory failure with hypercapnia (01/04/19) Physical Therapy Treatment Note M2 PT-IP Current Condition Start: 01/05/19 10:51 Freq: NEEDED Status: Active Protocol: Document 01/05/19 10:15 HH (Rec: 01/05/19 11:17 HH [email or web address]) Physical Therapy Current Condition Current Condition Evaluation Date 01/05/19 Treatment Diagnosis Fever/confusion, diarrhea, COPD, impaired gait and activity tolerance Onset Date 01/03/19 Weight Bearing Status Weight Bearing Status Weight Bear as Tolerated M3 PT-IP Subjective Start: 01/05/19 10:51 Freq: NEEDED Status: Active Protocol: Document 01/08/19 11:30 GGD (Rec: 01/08/19 12:22 GGD [id number]) Subjective Physical Therapy Visit Type Type Treatment Note Visit Start Time 11:05 Visit Stop Time 11:30 Total Visit Minutes 25 Number of CHIMNEY BUILDER Visits 2 Physical Therapy Visit Comments Patient Comments Pt states he needs to use the bathroom. M4 PT-IP Mobility and Gait Start: 01/05/19 10:51 Freq: NEEDED Status: Active Protocol: Document 01/08/19 11:30 GGD (Rec: 01/08/19 12:22 GGD [id number]) PT-Bed Mobility Assessment Supine to Sit Supine to Sit Standby Assistance Head of Bed Elevated Scooting Scooting to Edge of Bed Independent PT-Transfer Assessment Sit to and From Stand Sit to and from Stand Standby Assistance Use of Upper Extremities Equipment Transfer Assistive Device Gait Belt Front Wheeled Walker Orthotic/Prosthetic Devices or Brace: No Transfers Transfer Destination Chair Bedside Commode Transfer Technique Stand Step Pivot Transfer Ability Level of Assist Standby Assistance Use of Upper Extremities Gait Assessment Gait Gait Assistance Required: Standby Assistance Distance (Feet) 120 Able to Maintain Weight Bearing Status Yes During Gait Assistive Devices Assistive Device Gait Belt Front Wheeled Walker Orthotic/Prosthetic Devices or Brace: No Gait Deviations General Gait Pattern Decreased Stride Length Decreased Feet Clearance Flexed Trunk Factors Limiting Gait Function Factors Limiting Gait Function Decreased Activity Tolerance Decreased Strength Poor Safety Awareness Respiratory Distress Comments Gait Comments pt needed rest breaks during mobility. M5 PT-IP Objective Assessments Start: 01/05/19 10:51 Freq: NEEDED Status: Active Protocol: Document 01/05/19 10:15 HH (Rec: 01/05/19 11:17 HH [email or web address]) Orientation Orientation/Cognition Level of Alertness Alert Orientation Name Age Birthday Month Date Year Day of Week Place Situation Safety Awareness Decreased Safety Awareness Comments SOB, short sentences Gross Range of Motion Upper Extremity ROM Assessment Within Functional Limits Lower Extremity ROM Assessment Within Functional Limits Strength Upper Extremity Strength Assessment Within Functional Limits Lower Extremity Strength Assessment Left Impaired Comments Strength Comments LLE 4-/5 for strength grossly RLE 4+/5 for strength grossly Coordination Assessment Gross Coordination Gross Coordination WNL Assessment Finger to Nose Test Normal Performance Pronation/Supination Test Normal Performance Sensation Assessment Sensation Gross Sensation WNL Light Touch Intact Proprioception (Position) Intact Muscle Tone Muscle Tone WNL Yes M6 PT-IP Treatment Start: 01/05/19 10:51 Freq: NEEDED Status: Active Protocol: Document 01/05/19 10:15 HH (Rec: 01/05/19 11:17 [email or web address]) Physical Therapy Treatment Education Education Provided Safety M7 PT-IP Assessment and Plan Start: 01/05/19 10:51 Freq: NEEDED Status: Active Protocol: Document 01/08/19 11:30 GGD (Rec: 01/08/19 12:22 GGD [id number]) PT Summary Assessment and Plan Summary Assessment Summary Pt was safe and stable with mobility. He was able to progress gait distance. He had mild unsteadiness with transfer to [facility]. Frequency of Treatment Frequency Of Treatment Once a Day Treatment Plan Physical Therapy Treatment Plan Bed Mobility Training Transfer Training Gait Training Therapeutic Exercise Discharge Planning Other Recommendations and Next Treatment bed mob, transfer, gait Focus training as luiza with LRAD Recommendations To Nursing Amount of Assist Needed Standby Assistance Discharge Recommendations PT Discharge Recommendations Home with 24/ Assist
[2019-01-08] MEDS: POLYETHYLENE GLYCOL 3350 17 GM POWD.PACK PO (11:50)
[2019-01-08] MEDS: buPROPion XL 150 MG TAB PO (20:56)
[2019-01-09] VITALS (11 sets, daily range): BP systolic 122–143; BP diastolic 59–74; PULSE 63–80; RESP 14–18; TEMP 36.7–36.9; O2SAT 92–99
[2019-01-09] MEDS: LEVOTHYROXINE 75 MCG TABLET PO (06:02)
[2019-01-09] MEDS: PANTOPRAZOLE 40 MG TABLET PO (06:02)
[2019-01-09] MEDS: FLUTICASONE/SALMETEROL 500/50 14 PUFF DISKUS INH ×2 (06:12→20:09)
[2019-01-09] MEDS: TIOTROPIUM BROMIDE 18 MCG INHALER INH (07:37)
[2019-01-09] MEDS: DOCUSATE 100 MG CAPSULE PO ×2 (08:26→20:13)
[2019-01-09] MEDS: CARVEDILOL 6.25 MG TABLET PO ×2 (08:26→20:14)
[2019-01-09] MEDS: TOLTERODINE LA 2 MG CAP PO (08:26)
[2019-01-09] MEDS: POLYETHYLENE GLYCOL 3350 17 GM POWD.PACK PO (08:27)
[2019-01-09] MEDS: ENALAPRIL 5 MG TABLET 7.5 MG PO ×2 (08:27→20:14)
[2019-01-09] MEDS: clonazePAM 0.5 MG TABLET PO ×2 (08:35→20:13)
[2019-01-09] MEDS: ALBUTEROL 2.5 MG/3 ML NEB (ADULT) INH ×2 (10:45→20:09)
--- NOTE | 2019-01-09 12:12 | PT.IPTN ---
Current Diagnoses Acute respiratory failure with hypercapnia (01/04/19) Physical Therapy Treatment Note M2 PT-IP Current Condition Start: 01/05/19 10:51 Freq: NEEDED Status: Active Protocol: Document 01/05/19 10:15 HH (Rec: 01/05/19 11:17 HH [email or web address]) Physical Therapy Current Condition Current Condition Evaluation Date 01/05/19 Treatment Diagnosis Fever/confusion, diarrhea, COPD, impaired gait and activity tolerance Onset Date 01/03/19 Weight Bearing Status Weight Bearing Status Weight Bear as Tolerated M3 PT-IP Subjective Start: 01/05/19 10:51 Freq: NEEDED Status: Active Protocol: Document 01/09/19 11:10 CLB (Rec: 01/09/19 12:12 CLB [email or web address]) Subjective Physical Therapy Visit Type Type Treatment Note Visit Start Time 11:10 Visit Stop Time 11:45 Number of INFRASTRUCTURE ADMINISTRATOR Visits 3 Physical Therapy Visit Comments Patient Comments Pt willing to ambulate. Therapy Pain Assessment Pain Present Pain Present Denied Pain M4 PT-IP Mobility and Gait Start: 01/05/19 10:51 Freq: NEEDED Status: Active Protocol: Document 01/09/19 11:10 CLB (Rec: 01/09/19 12:12 CLB [id number]) PT-Bed Mobility Assessment Supine to Sit Supine to Sit Standby Assistance Head of Bed Elevated Scooting Scooting to Edge of Bed Independent PT-Transfer Assessment Sit to and From Stand Sit to and from Stand Standby Assistance Use of Upper Extremities Equipment Transfer Assistive Device Gait Belt 4 Wheeled Walker Orthotic/Prosthetic Devices or Brace: No Transfers Transfer Destination Bed Transfer Technique Stand Step Pivot Transfer Ability Level of Assist Standby Assistance Use of Upper Extremities Gait Assessment Gait Gait Assistance Required: Standby Assistance Distance (Feet) 400 Assistive Devices Assistive Device Gait Belt 4 Wheeled Walker Orthotic/Prosthetic Devices or Brace: No Gait Deviations General Gait Pattern Decreased Stride Length Decreased Feet Clearance Flexed Trunk Factors Limiting Gait Function Factors Limiting Gait Function Decreased Activity Tolerance Decreased Strength Poor Safety Awareness Respiratory Distress Comments Gait Comments Pt used 4WW with ambulation requiring two seated rest breaks. M5 PT-IP Objective Assessments Start: 01/05/19 10:51 Freq: NEEDED Status: Active Protocol: Document 01/05/19 10:15 HH (Rec: 01/05/19 11:17 HH [email or web address]) Orientation Orientation/Cognition Level of Alertness Alert Orientation Name Age Birthday Month Date Year Day of Week Place Situation Safety Awareness Decreased Safety Awareness Comments SOB, short sentences Gross Range of Motion Upper Extremity ROM Assessment Within Functional Limits Lower Extremity ROM Assessment Within Functional Limits Strength Upper Extremity Strength Assessment Within Functional Limits Lower Extremity Strength Assessment Left Impaired Comments Strength Comments LLE 4-/5 for strength grossly RLE 4+/5 for strength grossly Coordination Assessment Gross Coordination Gross Coordination WNL Assessment Finger to Nose Test Normal Performance Pronation/Supination Test Normal Performance Sensation Assessment Sensation Gross Sensation WNL Light Touch Intact Proprioception (Position) Intact Muscle Tone Muscle Tone WNL Yes M6 PT-IP Treatment Start: 01/05/19 10:51 Freq: NEEDED Status: Active Protocol: Document 01/05/19 10:15 HH (Rec: 01/05/19 11:17 HH [email or web address]) Physical Therapy Treatment Education Education Provided Safety M7 PT-IP Assessment and Plan Start: 01/05/19 10:51 Freq: NEEDED Status: Active Protocol: Document 01/09/19 11:10 CLB (Rec: 01/09/19 12:12 CLB [id number]) PT Summary Assessment and Plan Summary Assessment Summary Pt used 4WW with ambulation, pt required 2 seated rest breaks. Pt ambulated ~400ft SBA w/4WW using walker appropriately while remembering to use breaks before sitting. Pt walks with slow pace/steady pace and is able to talk while walking with O2 saturations on 2L remaining between 90-92 during ambulation. Goals Bed Mobility Goal Standby Assistance Transfer Goal Standby Assistance Front Wheeled Walker Gait Goal Standby Assistance Front Wheel Walker Gait Distance 200 Other Goals climb 1 step without AD Days to Meet Goals 5 Frequency of Treatment Frequency Of Treatment Once a Day Treatment Plan Physical Therapy Treatment Plan Bed Mobility Training Transfer Training Gait Training Therapeutic Exercise Discharge Planning Other Recommendations and Next Treatment bed mob, transfer, gait Focus training as luiza with LRAD Recommendations To Nursing Amount of Assist Needed Standby Assistance Discharge Recommendations PT Discharge Recommendations Home with 24/ Assist
--- NOTE | 2019-01-09 13:14 | PM.PN.1 ---
Subjective Date Patient Seen: 01/09/19 Time Patient Seen: 13:14 Interval history: The patient feeling much better since he had a bowel movement. He also relates that he gets some of her pulmonary relief from the nebulized albuterol. Otherwise overall patient is feeling better. Exam Vital Signs (past 8 hours): - 01/09/19 06:12 01/09/19 07:40 01/09/19 07:41 Temperature 98.5 F Pulse Rate 65 63 70 Respiratory Rate 16 18 16 Blood Pressure 138/69 Pulse Oximetry 92 96 97 01/09/19 08:26 01/09/19 08:27 01/09/19 10:53 Temperature Pulse Rate 64 Respiratory Rate 16 Blood Pressure 138/69 138/69 Pulse Oximetry 97 Fraction of Inspired Oxygen 28 Oxygen Delivery Method Nasal Cannula Oxygen Flow Rate 2 Narrative Exam Narrative: Patient little more animated today resting quietly watching the a cough match on TV. The lungs are clear abdomen is soft nontender Objective Labs Result Diagrams: 01/07/19 05:10 01/06/19 04:47 Labs: No recent lab Assessment & Plan Assessment & Plan narrative: Patient with apparent end-stage pulmonary disease is stable on current program. Seems comfortable and tolerating treatments well. Discharge planning forthcoming presumably home tomorrow with hospice care as per Dr. Samayoa Quality VTE Deep Vein Thrombosis/Pulmonary Embolism Present on Admission: No
--- NOTE | 2019-01-09 15:38 | CM.DPC ---
Spoke with daughter Roxanna today. [facility] She will plan to be at the hospital by 8:30 tomorrow so patient can be home by 10 am Hospice opening. She will bring patient oxygen from home and will transport the patient. Plan: Plan. Home tomorrow by private vehicle with Hospice to open tomorrow.
[2019-01-09] MEDS: LORazepam 0.5 MG TABLET PO ×2 (17:30→21:31)
[2019-01-09] MEDS: buPROPion XL 150 MG TAB PO (20:14)
[2019-01-09] MEDS: SODIUM CHLORIDE 0.9% FLUSH 10 ML IV (20:21)
[2019-01-10] MEDS: LORazepam 0.5 MG TABLET PO (01:24)
[2019-01-10 02:33] VITALS: BP 122/74; PULSE 80
[2019-01-10 05:00] VITALS: PULSE 77; RESP 18; O2SAT 93
[2019-01-10] MEDS: PANTOPRAZOLE 40 MG TABLET PO (06:48)
[2019-01-10] MEDS: LEVOTHYROXINE 75 MCG TABLET PO (06:48)
[2019-01-10] MEDS: DOCUSATE 100 MG CAPSULE PO (07:55)
[2019-01-10] MEDS: clonazePAM 0.5 MG TABLET PO (07:55)
[2019-01-10] MEDS: CARVEDILOL 6.25 MG TABLET PO (07:58)
[2019-01-10] MEDS: ENALAPRIL 5 MG TABLET 7.5 MG PO (07:58)
[2019-01-10] MEDS: TOLTERODINE LA 2 MG CAP PO (07:59)
[2019-01-10] MEDS: POLYETHYLENE GLYCOL 3350 17 GM POWD.PACK PO (07:59)
[2019-01-10 08:15] VITALS: BP 134/77; PULSE 76; RESP 18; TEMP 36.6; O2SAT 93
--- NOTE | 2019-01-10 08:18 | PM.DS.1 ---
History of Present Illness Chief complaint: Fever / Confused Narrative: Patient presented to the [facility] Emergency Department on the day of admission with complaints of fever of 102+ day prior to admission. He had been found down at home day of admission by his caregivers without his oxygen on and confused disoriented etc. He apparently had lost control of bowels evidence of diarrhea as well. Patient's only recollection is having severe diarrhea unlike anything he would experience before. Does not seem to have clear recollection of much of anything beyond that and inability to get hold of his caregivers. Patient was admitted to [facility] in [place] recently because of confusion and hypoxia. He was in [facility] visiting [facility] which is how he ended up but that facility. He was found to be in acute on chronic congestive heart failure with new evidence of severe left ventricular systolic dysfunction with ejection fraction in the 20-25% range with global hypokinesis. It was unclear whether this was ischemic or not any did not undergo any invasive procedures His COPD was treated as well and he improved. He was discharged to group home stay there for 2+ weeks. Then was discharged home just last week. He was seen in the clinic by myself and advised strongly to obtain 24/7 caregivers at a minimum and that an alternate living facility would be far more appropriate as he clearly had some persistent confusion disorientation/cognitive dysfunction had issues with his medication. He also had become nutritionally challenged over the last several months at home living independently although had gained some weight while under the care of the hospital and group home facility. Discharge Providers Date of admission: 01/04/19 14:10 Discharge Date: 01/10/19 Primary care physician: Leonel Samayoa MD Consults: 01/04/19 16:10 Consult to Dietitian, Adult Routine Comment: caregivers primary goal to increased po intake. Reason For Exam: Assessed at high risk, 01/05/19 06:50 Consult to Occupational Therapy Evaluate & Treat Comment: Physician Instructions: Evaluate and treat Consult to Physical Therapy Evaluate & Treat Comment: Physician Instructions: Evaluate and Treat Discharge provider: Leonel Samayoa MD Summary Discharge Diagnosis: 1. Type 2 myocardial infarction 2. Acute blood loss anemia, source unknown 3. Acute on chronic Respiratory failure due to COPD, with hypercapnia 4. Dilated cardiomyopathy, stable 5. Chronic renal failure stage 2 6. Hypothyroidism, acquired, on replacement therapy 7. Generalized anxiety disorder 8. Chronic constipation 9. Metabolic encephalopathy due to multiple issues above primarily respiratory failure 10. Chronic atrial fibrillation Hospital Course: Patient presented with confusion and disorientation. This improved slowly with the oxygen therapy that he was started on (this had somehow become discontinued at home) as well as treatment of his lung disease with BiPAP etc. in the ER is proved to be hypercapnic and this is felt to be a significant contributing factor to his metabolic encephalopathy. This was corrected with appropriate treatment of his lung disease including BiPAP Initially he was shown to have an elevated troponin consistent with a type 2 myocardial infarction. This was felt to be due to increased demand balanced with decreased oxygenation both because of his respiratory disease and his anemia. Once these medical issues were corrected patient had no further obvious issues and no objective evidence of ongoing cardiac dysfunction. Patient's lung disease was felt to be stable once he was treated with oxygen and a brief period of BiPAP. He did not appear to have any exacerbation of his underlying severe COPD. He was continued on low level oxygen for mild hypoxia as he was proven to be hypercapnic as well both at baseline and upon admission. Patient was anemic upon admission. No source of bleeding was identified. Patient had recently been started on oral anticoagulation because of his chronic atrial fibrillation when hospitalized at an outside facility. This had been discontinued by me several years prior because of increased risk of falls etc which patient had experience. The oral anticoagulant was not continued upon admission and once patient was transfused there is no evidence of active blood loss. His blood counts remained stable. He will continue off of anticoagulation for now will continue monitor for evidence of blood loss. Patient was quite nutritionally challenged over the last several months and perhaps or even more likely that is the culprit for his presentation with acute anemia in the setting of oral anticoagulation Patient's anxiety was not an active issue during this hospitalization. He did require intermittent dosing with lorazepam which he takes at home on a routine basis as well as his chronic long-term clonazepam. Patient's chronic heart failure with significant left ventricular systolic dysfunction and cardiomyopathy was not active during this hospitalization. He had had his oral diuretic therapy discontinued as an outpatient because of rising creatinine and he did not show evidence of volume overload or heart failure during this hospitalization. He was given diuretics around the time of his transfusion but again appears to be euvolemic at time of discharge. Patient was felt to be stable to return home by skilled therapies with additional assistance at home. He will require 24/7 monitoring and correction. After discussion with patient's family with discharge planning staff here at the hospital it was elected to initiate hospice referral as well. Patient was in agreement with this. He certainly has end-stage lung disease and end-stage cardiomyopathy and the 2 together specially severely limited life expectancy. I think hospice would be a good addition to helping to provide appropriate care for patient at home during his final stage of his life. Status at Discharge Cognitive/behavioral status at discharge: at baseline, oriented (Intermittently oriented and confused) and at baseline, confused Functional status at discharge: uses cane/walker Overall status at discharge: patient is progressing back to baseline Time Spent with Patient Greater than 30 minutes (Note: Greater than 30 minutes was spent evaluating the patient on the floor, including examining the patient, discussing clinical course with clinical and nursing staff, reviewing clinical course in the computer, preparing documentation and writing discharge orders. ) Exam Vital Signs (past 8 hours): - 01/10/19 02:33 01/10/19 05:00 01/10/19 08:15 Temperature 97.8 F Pulse Rate 80 77 76 Respiratory Rate 18 18 Blood Pressure 122/74 134/77 Pulse Oximetry 93 93 Fraction of Inspired Oxygen 28 Oxygen Delivery Method Nasal Cannula Oxygen Flow Rate 2 Narrative Exam Narrative: Unchanged from previous Objective Labs Result Diagrams: 01/07/19 05:10 01/06/19 04:47 Discharge Plan Discharge Plan Patient Disposition: Hospice - Home Discharge Med Rec/Prescriptions Prescriptions: New albuterol sulfate 2.5 mg /3 mL (0.083 %) Solution For Nebulization 2.5 mg Inhalation [id number] PRN (Reason: Wheezing) Qty: 75 RF: 11 docusate sodium 100 mg Capsule 100 mg PO BID Qty: 60 RF: 4 Continued polyethylene glycol 3350 [Miralax] 17 GM powder in packet 17 gm PO QDAY PRN (Reason: Constipation) Qty: 0 RF: 0 fluticasone propion-salmeterol [Advair Diskus] 500-50 mcg/dose blister with device 1 puff INH BID Qty: 1 RF: 3 levothyroxine [Synthroid] 75 mcg tablet 0.075 mg PO QAM Qty: 30 RF: 3 tolterodine 2 mg capsule,extended release 24hr 2 mg PO DAILY Qty: 90 RF: 3 tiotropium bromide [Spiriva with HandiHaler] 18 mcg capsule, w/inhalation device 1 cap INHALATION DAILY Qty: 90 RF: 3 chlorthalidone 25 mg tablet 25 mg PO DAILY Qty: 90 RF: 3 albuterol sulfate 90 mcg/actuation HFA aerosol inhaler 2 puff INHALATION Q4-6H PRN (Reason: shortness of breath or wheezing) RF: 0 triamcinolone acetonide 0.1 % cream 1 applictn TOP DAILY Qty: 80 RF: 3 carvedilol 6.25 mg tablet 6.25 mg PO BID RF: 0 enalapril maleate 2.5 mg tablet 7.5 mg PO BID RF: 0 clonazepam 1 mg tablet 0.5 mg PO BID Qty: 180 RF: 3 calcium carbonate [Oyster Shell Calcium 500] 500 mg calcium (1,250 mg) tablet 500 mg PO QID Qty: 30 RF: 0 lorazepam [Ativan] 1 mg tablet 1 mg PO DAILY PRN (Reason: Anxiety) RF: 0 multivitamin Tablet 1 tab PO DAILY RF: 0 bupropion HCl [Wellbutrin XL] 150 mg tablet extended release 24 hr 150 mg PO BEDTIME RF: 0 Disabled [address]ing Permit 1 ea miscellaneous DIRECTED RF: 0 Discontinued Eliquis 2.5 mg tablet 2.5 mg PO BID RF: 0 Follow up/Referrals: Leonel Samayoa MD [Primary Care Provider] - 2 Weeks Provider Discharge Instructions Diet: Diet as Tolerated and Low-sodium Discharge Data Primary Care Provider: Leonel Samayoa Attending Provider: Leonel Samayoa Admit Date/Time: 01/04/19 14:10 Quality VTE Deep Vein Thrombosis/Pulmonary Embolism Present on Admission: No
--- NOTE | 2019-01-10 08:27 | P.DS_ITS ---
History of Present Illness Chief complaint: Fever / Confused Narrative: Patient presented to the [facility] Emergency Department on the day of admission with complaints of fever of 102+ day prior to admission. He had been found down at home day of admission by his caregivers without his oxygen on and confused disoriented etc. He apparently had lost control of bowels evidence of diarrhea as well. Patient's only recollection is having severe diarrhea unlike anything he would experience before. Does not seem to have clear recollection of much of anything beyond that and inability to get hold of his caregivers. Patient was admitted to [facility] in [place] recently because of confusion and hypoxia. He was in [facility] visiting [facility] which is how he ended up but that facility. He was found to be in acute on chronic congestive heart failure with new evidence of severe left ventricular systolic dysfunction with ejection fraction in the 20-25% range with global hypokinesis. It was unclear whether this was ischemic or not any did not undergo any invasive procedures His COPD was treated as well and he improved. He was discharged to senior care stay there for 2+ weeks. Then was discharged home just last week. He was seen in the clinic by myself and advised strongly to obtain 24/7 caregivers at a minimum and that an alternate living facility would be far more appropriate as he clearly had some persistent confusion disorientation/cognitive dysfunction had issues with his medication. He also had become nutritionally challenged over the last several months at home living independently although had gained some weight while under the care of the hospital and senior care facility. Discharge Providers Date of admission: 01/04/19 14:10 Discharge Date: 01/10/19 Primary care physician: Leonel Samayoa MD Consults: 01/04/19 16:10 Consult to Dietitian, Adult Routine Comment: caregivers primary goal to increased po intake. Reason For Exam: Assessed at high risk, 01/05/19 06:50 Consult to Occupational Therapy Evaluate & Treat Comment: Physician Instructions: Evaluate and treat Consult to Physical Therapy Evaluate & Treat Comment: Physician Instructions: Evaluate and Treat Discharge provider: Leonel Samayoa MD Summary Discharge Diagnosis: 1. Type 2 myocardial infarction 2. Acute blood loss anemia, source unknown 3. Acute on chronic Respiratory failure due to COPD, with hypercapnia 4. Dilated cardiomyopathy, stable 5. Chronic renal failure stage 2 6. Hypothyroidism, acquired, on replacement therapy 7. Generalized anxiety disorder 8. Chronic constipation 9. Metabolic encephalopathy due to multiple issues above primarily respiratory failure 10. Chronic atrial fibrillation Hospital Course: Patient presented with confusion and disorientation. This improved slowly with the oxygen therapy that he was started on (this had somehow become discontinued at home) as well as treatment of his lung disease with BiPAP etc. in the ER is proved to be hypercapnic and this is felt to be a significant contributing factor to his metabolic encephalopathy. This was corrected with appropriate treatment of his lung disease including BiPAP Initially he was shown to have an elevated troponin consistent with a type 2 myocardial infarction. This was felt to be due to increased demand balanced with decreased oxygenation both because of his respiratory disease and his anemia. Once these medical issues were corrected patient had no further obvious issues and no objective evidence of ongoing cardiac dysfunction. Patient's lung disease was felt to be stable once he was treated with oxygen and a brief period of BiPAP. He did not appear to have any exacerbation of his underlying severe COPD. He was continued on low level oxygen for mild hypoxia as he was proven to be hypercapnic as well both at baseline and upon admission. Patient was anemic upon admission. No source of bleeding was identified. Patient had recently been started on oral anticoagulation because of his chronic atrial fibrillation when hospitalized at an outside facility. This had been discontinued by me several years prior because of increased risk of falls etc which patient had experience. The oral anticoagulant was not continued upon admission and once patient was transfused there is no evidence of active blood loss. His blood counts remained stable. He will continue off of anticoagulation for now will continue monitor for evidence of blood loss. Patient was quite nutritionally challenged over the last several months and perhaps or even more likely that is the culprit for his presentation with acute anemia in the setting of oral anticoagulation Patient's anxiety was not an active issue during this hospitalization. He did require intermittent dosing with lorazepam which he takes at home on a routine basis as well as his chronic long-term clonazepam. Patient's chronic heart failure with significant left ventricular systolic dysfunction and cardiomyopathy was not active during this hospitalization. He had had his oral diuretic therapy discontinued as an outpatient because of rising creatinine and he did not show evidence of volume overload or heart failure during this hospitalization. He was given diuretics around the time of his transfusion but again appears to be euvolemic at time of discharge. Patient was felt to be stable to return home by skilled therapies with additio nal assistance at home. He will require 24/7 monitoring and nursing home. After discussion with patient's family with discharge planning staff here at the hospital it was elected to initiate hospice referral as well. Patient was in agreement with this. He certainly has end-stage lung disease and end-stage cardiomyopathy and the 2 together specially severely limited life expectancy. I think hospice would be a good addition to helping to provide appropriate care for patient at home during his final stage of his life. Status at Discharge Cognitive/behavioral status at discharge: at baseline, oriented (Intermittently oriented and confused) and at baseline, confused Functional status at discharge: uses cane/walker Overall status at discharge: patient is progressing back to baseline Time Spent with Patient Greater than 30 minutes (Note: Greater than 30 minutes was spent evaluating the patient on the floor, including examining the patient, discussing clinical course with clinical and nursing staff, reviewing clinical course in the computer, preparing documentation and writing discharge orders. ) Exam Vital Signs (past 8 hours): - 01/10/19 02:33 01/10/19 05:00 01/10/19 08:15 Temperature 97.8 F Pulse Rate 80 77 76 Respiratory Rate 18 18 Blood Pressure 122/74 134/77 Pulse Oximetry 93 93 Fraction of Inspired Oxygen 28 Oxygen Delivery Method Nasal Cannula Oxygen Flow Rate 2 Narrative Exam Narrative: Unchanged from previous Objective Labs Result Diagrams: 01/07/19 05:10 01/06/19 04:47 Discharge Plan Discharge Plan Patient Disposition: Hospice - Home Discharge Med Rec/Prescriptions Prescriptions: New albuterol sulfate 2.5 mg /3 mL (0.083 %) Solution For Nebulization 2.5 mg Inhalation [id number] PRN (Reason: Wheezing) Qty: 75 RF: 11 docusate sodium 100 mg Capsule 100 mg PO BID Qty: 60 RF: 4 Continued polyethylene glycol 3350 [Miralax] 17 GM powder in packet 17 gm PO QDAY PRN (Reason: Constipation) Qty: 0 RF: 0 fluticasone propion-salmeterol [Advair Diskus] 500-50 mcg/dose blister with device 1 puff INH BID Qty: 1 RF: 3 levothyroxine [Synthroid] 75 mcg tablet 0.075 mg PO QAM Qty: 30 RF: 3 tolterodine 2 mg capsule,extended release 24hr 2 mg PO DAILY Qty: 90 RF: 3 tiotropium bromide [Spiriva with HandiHaler] 18 mcg capsule, w/inhalation device 1 cap INHALATION DAILY Qty: 90 RF: 3 chlorthalidone 25 mg tablet 25 mg PO DAILY Qty: 90 RF: 3 albuterol sulfate 90 mcg/actuation HFA aerosol inhaler 2 puff INHALATION Q4-6H PRN (Reason: shortness of breath or wheezing) RF: 0 triamcinolone acetonide 0.1 % cream 1 applictn TOP DAILY Qty: 80 RF: 3 carvedilol 6.25 mg tablet 6.25 mg PO BID RF: 0 enalapril maleate 2.5 mg tablet 7.5 mg PO BID RF: 0 clonazepam 1 mg tablet 0.5 mg PO BID Qty: 180 RF: 3 calcium carbonate [Oyster Shell Calcium 500] 500 mg calcium (1,250 mg) tablet 500 mg PO QID Qty: 30 RF: 0 lorazepam [Ativan] 1 mg tablet 1 mg PO DAILY PRN (Reason: Anxiety) RF: 0 multivitamin Tablet 1 tab PO DAILY RF: 0 bupropion HCl [Wellbutrin XL] 150 mg tablet extended release 24 hr 150 mg PO BEDTIME RF: 0 Disabled [address]ing Permit 1 ea miscellaneous DIRECTED RF: 0 Discontinued Eliquis 2.5 mg tablet 2.5 mg PO BID RF: 0 Follow up/Referrals: Leonel Samayoa MD [Primary Care Provider] - 2 Weeks Provider Discharge Instructions Diet: Diet as Tolerated and Low-sodium Discharge Data Primary Care Provider: Leonel Samayoa Attending Provider: Leonel Samayoa Admit Date/Time: 01/04/19 14:10 Quality VTE Deep Vein Thrombosis/Pulmonary Embolism Present on Admission: No
[2019-01-10 08:35] VITALS: PULSE 73; RESP 18; O2SAT 94
[2019-01-10] MEDS: FLUTICASONE/SALMETEROL 500/50 14 PUFF DISKUS INH (08:35)
[2019-01-10] MEDS: TIOTROPIUM BROMIDE 18 MCG INHALER INH (08:35)
--- NOTE | 2019-01-10 08:55 | CM.DPC ---
Addendum entered by GEOFFREY Ledesma 01/10/19 10:00: ADD: Return call from Hospice confirming that they are set up for opening the pt today and they received the d/c summary and meds to review. KAROLINA updated RN. BF Original Note: DCP Discharge Home Hospice Per MD, pt is medically stable to d/c home with Hospice today. KAROLINA updated RN that Dtr plans to be bedside around 0830 to provide transport home for the pt and [facility] to open pt to service between [id number] today. SW called [facility] and left a msg with update on pt d/c and faxed pt d/c summary and copy of med rec to review and requested call back to confirm d/c plan for today. Plan: SW to follow for likely pt d/c home this morning via Dtr POV with [facility] to open the pt to service this morning between [id number]. GEOFFREY Ledesma
--- NOTE | 2019-01-10 09:06 | PT.IPTN ---
Current Diagnoses Acute respiratory failure with hypercapnia (01/04/19) Physical Therapy Treatment Note M2 PT-IP Current Condition Start: 01/05/19 10:51 Freq: NEEDED Status: Active Protocol: Document 01/05/19 10:15 HH (Rec: 01/05/19 11:17 HH [email or web address]) Physical Therapy Current Condition Current Condition Evaluation Date 01/05/19 Treatment Diagnosis Fever/confusion, diarrhea, COPD, impaired gait and activity tolerance Onset Date 01/03/19 Weight Bearing Status Weight Bearing Status Weight Bear as Tolerated M3 PT-IP Subjective Start: 01/05/19 10:51 Freq: NEEDED Status: Active Protocol: Document 01/10/19 09:05 LJ (Rec: 01/10/19 09:06 LJ [id number]) Subjective Physical Therapy Visit Type Type Patient Refusal Notes Pt getting dressed with nursing. States he will walk around at home later. M4 PT-IP Mobility and Gait Start: 01/05/19 10:51 Freq: NEEDED Status: Active Protocol: Document 01/09/19 11:10 CLB (Rec: 01/09/19 12:12 CLB [id number]) PT-Bed Mobility Assessment Supine to Sit Supine to Sit Standby Assistance Head of Bed Elevated Scooting Scooting to Edge of Bed Independent PT-Transfer Assessment Sit to and From Stand Sit to and from Stand Standby Assistance Use of Upper Extremities Equipment Transfer Assistive Device Gait Belt 4 Wheeled Walker Orthotic/Prosthetic Devices or Brace: No Transfers Transfer Destination Bed Transfer Technique Stand Step Pivot Transfer Ability Level of Assist Standby Assistance Use of Upper Extremities Gait Assessment Gait Gait Assistance Required: Standby Assistance Distance (Feet) 400 Assistive Devices Assistive Device Gait Belt 4 Wheeled Walker Orthotic/Prosthetic Devices or Brace: No Gait Deviations General Gait Pattern Decreased Stride Length Decreased Feet Clearance Flexed Trunk Factors Limiting Gait Function Factors Limiting Gait Function Decreased Activity Tolerance Decreased Strength Poor Safety Awareness Respiratory Distress Comments Gait Comments Pt used 4WW with ambulation requiring two seated rest breaks. M5 PT-IP Objective Assessments Start: 01/05/19 10:51 Freq: NEEDED Status: Active Protocol: Document 01/05/19 10:15 HH (Rec: 01/05/19 11:17 HH [email or web address]) Orientation Orientation/Cognition Level of Alertness Alert Orientation Name Age Birthday Month Date Year Day of Week Place Situation Safety Awareness Decreased Safety Awareness Comments SOB, short sentences Gross Range of Motion Upper Extremity ROM Assessment Within Functional Limits Lower Extremity ROM Assessment Within Functional Limits Strength Upper Extremity Strength Assessment Within Functional Limits Lower Extremity Strength Assessment Left Impaired Comments Strength Comments LLE 4-/5 for strength grossly RLE 4+/5 for strength grossly Coordination Assessment Gross Coordination Gross Coordination WNL Assessment Finger to Nose Test Normal Performance Pronation/Supination Test Normal Performance Sensation Assessment Sensation Gross Sensation WNL Light Touch Intact Proprioception (Position) Intact Muscle Tone Muscle Tone WNL Yes M6 PT-IP Treatment Start: 01/05/19 10:51 Freq: NEEDED Status: Active Protocol: Document 01/05/19 10:15 HH (Rec: 01/05/19 11:17 HH [email or web address]) Physical Therapy Treatment Education Education Provided Safety M7 PT-IP Assessment and Plan Start: 01/05/19 10:51 Freq: NEEDED Status: Active Protocol: Document 01/09/19 11:10 CLB (Rec: 01/09/19 12:12 CLB [id number]) PT Summary Assessment and Plan Summary Assessment Summary Pt used 4WW with ambulation, pt required 2 seated rest breaks. Pt ambulated ~400ft SBA w/4WW using walker appropriately while remembering to use breaks before sitting. Pt walks with slow pace/steady pace and is able to talk while walking with O2 saturations on 2L remaining between 90-92 during ambulation. Goals Bed Mobility Goal Standby Assistance Transfer Goal Standby Assistance Front Wheeled Walker Gait Goal Standby Assistance Front Wheel Walker Gait Distance 200 Other Goals climb 1 step without AD Days to Meet Goals 5 Frequency of Treatment Frequency Of Treatment Once a Day Treatment Plan Physical Therapy Treatment Plan Bed Mobility Training Transfer Training Gait Training Therapeutic Exercise Discharge Planning Other Recommendations and Next Treatment bed mob, transfer, gait Focus training as luiza with LRAD Recommendations To Nursing Amount of Assist Needed Standby Assistance Discharge Recommendations PT Discharge Recommendations Home with 27/04 Assist
== END 2019-01-10 10:05 | disposition hospice, home (50) | DRG 280 ==
LOC: ED 13:56 → ICU 14:43 → AC 01-08 05:40
PROVIDERS: Admitting Provider Internal Medicine; Emergency Provider Emergency Medicine; PCP Internal Medicine; Visit Provider Internal Medicine
DX: I21.A1 Myocardial infarction type 2 (principal); J96.22 Acute and chronic respiratory failure with hypercapnia; G93.41 Metabolic encephalopathy; I13.0 Hypertensive heart and chronic kidney disease with heart failure and stage 1 through stage 4 chronic kidney disease, or unspecified chronic kidney disease; I50.22 Chronic systolic (congestive) heart failure; D62 Acute posthemorrhagic anemia; N18.2 Chronic kidney disease, stage 2 (mild); J44.9 Chronic obstructive pulmonary disease, unspecified; Z99.81 Dependence on supplemental oxygen; D64.9 Anemia, unspecified; R19.7 Diarrhea, unspecified; I25.5 Ischemic cardiomyopathy; K59.00 Constipation, unspecified; Z87.891 Personal history of nicotine dependence; I48.2 Chronic atrial fibrillation; E03.9 Hypothyroidism, unspecified; F41.9 Anxiety disorder, unspecified
CPT/HCPCS: 36415; 36430; 36591; 36600; 70450; 74022; 80048; 80053; 81003; 82272; 82805; 83605; 83690; 84484; 85014; 85018; 85025; 85610; 85730; 86850; 86900; 86901; 87040; 87400; 87633; 87797; 93005; 94640; 94660; 94760; 94762; 96365; 97116; 97127; 97162; 97165; 97530; 97535; 99223; 99232; 99233; 99239; 99284; 99285; P9016; C9113; J1940; J7613

== ENCOUNTER → 2020-03-13 12:27 | Outpatient (CLI) | payer MEDICARE, BC, SELFPAY ==
[2019-01-04 15:53] VITALS: BMI 18.9
[2019-01-04 19:20] VITALS: PULSE 71; RESP 16; O2SAT 100
[2020-03-13 14:02] LABS: Alanine Aminotransferase 14 IU/L (<50); Albumin Globulin Ratio 1.4 (1.0-2.8); Alkaline Phosphatase 61 U/L (38-126); Aspartate Aminotransferase 24 IU/L (17-59); BUN Creatinine Ratio 26.6 (6-22); Bilirubin Total 0.7 mg/dL (0.2-1.3); Blood Urea Nitrogen 46 mg/dL (9-20); Calcium 9.1 mg/dL (8.4-10.2); Chloride 86 mmol/L (98-107); Estimated Glomerular Filt Rate 38.3 mL/min (>60); Globulin 2.9 g/dL (1.7-4.1); Glucose 115 mg/dL (80-110); HEMOLYSIS < 15 (0-50); Potassium 5.2 mmol/L (3.4-5.1); Sodium 139 mmol/L (137-145); Total Protein 6.9 g/dL (6.3-8.2)
[2020-03-13 14:07] LABS: NT-proBNP (BNP-Adult 18+) 716 pg/mL (<450)
[2020-03-13 14:16] LABS: Carbon Dioxide 48 mmol/L (22-32)
[2020-03-13 14:43] LABS: Free T4, Direct Thyroxine 0.99 ng/dL (0.78-2.19)
== END ==
PROVIDERS: PCP Internal Medicine; Referring Provider Internal Medicine; Visit Provider Internal Medicine
DX: E03.9 Hypothyroidism, unspecified (principal); J41.0 Simple chronic bronchitis; N18.2 Chronic kidney disease, stage 2 (mild); I42.9 Cardiomyopathy, unspecified; I48.20 Chronic atrial fibrillation, unspecified; I50.22 Chronic systolic (congestive) heart failure; I13.0 Hypertensive heart and chronic kidney disease with heart failure and stage 1 through stage 4 chronic kidney disease, or unspecified chronic kidney disease
CPT/HCPCS: 36415; 80053; 83880; 84439; 84443

== ENCOUNTER → 2020-07-02 12:48 | Outpatient (ROUT) | payer OTHER, MEDICARE, BC, SELFPAY ==
[2019-01-04 15:53] VITALS: BMI 18.9
[2019-01-04 19:20] VITALS: PULSE 71; RESP 16; O2SAT 100
[2020-07-02 13:08] LABS: BUN Creatinine Ratio 24.4 (6-22); Blood Urea Nitrogen 43 mg/dL (9-20); Calcium 8.9 mg/dL (8.4-10.2); Chloride 85 mmol/L (98-107); Estimated Glomerular Filt Rate 37.5 mL/min (>60); Glucose 85 mg/dL (80-110); HEMOLYSIS < 15 (0-50); Potassium 4.4 mmol/L (3.4-5.1); Sodium 140 mmol/L (137-145)
[2020-07-02 13:25] LABS: Carbon Dioxide 51 mmol/L (22-32)
== END ==
PROVIDERS: PCP Internal Medicine; Visit Provider Family Medicine
DX: I50.23 Acute on chronic systolic (congestive) heart failure (principal)
CPT/HCPCS: 80048